=== PATIENT | female | born 1980 | race Caucasian/White ===

== ENCOUNTER 2017-06-02 11:56 | Day surgery (SDC) | payer BC, OTHER ==
[2017-06-02] MEDS ORDERED: Lactated Ringers 1,000 ML IV ONE ×2 (12:13→12:15)
[2017-06-02 12:21] LABS: Mean Corpuscular Hemoglobin 30.3 pg (26-32); Mean Platelet Volume 10.8 fl (6-9.5); Platelet Count 259 K/mm3 (150-450); Red Blood Count 4.45 M/mm3 (4.1-5.4); Red Cell Distribution Width 13.1 % (11.5-14.0)
[2017-06-02] MEDS ORDERED: ROCEPHIN 1 Gm-D5w 50 ml Bag** 1 G/50 ML IVPB IV ONE (13:00)
[2017-06-02 13:19] VITALS: O2SAT 98
[2017-06-02 13:41] VITALS: BP 120/67; PULSE 88
== END 2017-06-02 13:46 | disposition home or self-care (01) ==
LOC: INFUSION 11:56
PROVIDERS: ATTEND Nurse Practitioner
DX: E86.0 Dehydration (principal)
CPT/HCPCS: 36415; 85027; 96360; 96365; J0696

== ENCOUNTER 2017-07-31 01:23 | Inpatient (IN) | payer OTHER ==
[2017-07-31] MEDS ORDERED: Phenergan 25 MG INJ IV ONE ×2 (01:48→03:18)
[2017-07-31] MEDS ORDERED: SUBLIMAZE 100 MCG/2 ML IV ONE (01:48)
[2017-07-31] MEDS ORDERED: Sodium Chloride 0.9% 1000 ML 1,000 ML IV STA ×2 (01:48→03:48)
[2017-07-31] MEDS ORDERED: Phenergan 25 MG INJ ONE ×2 (01:52→03:27)
[2017-07-31] MEDS ORDERED: SUBLIMAZE 100 MCG/2 ML ONE (01:52)
[2017-07-31] MEDS ORDERED: Sodium Chloride 0.9% 1000 ML 1,000 ML ONE ×2 (01:53→03:27)
--- NOTE | 2017-07-31 01:55 | ERPHSYRPT ---
- History of Present Illness Time Seen by Provider: 07/31/17 01:42 Historian: patient Exam Limitations: no limitations Patient Subjective Stated Complaint: Pt reports abd pain and vomiting since yesterday, also with diarrhea. Reports vomited more than 12 times. Reports same amount of diarrhea. Reports cramping abd pain /. Also reports bright red rectal bleeding intermittent x 3 months. Reports occurs at random. Triage Nursing Assessment: Pt alert, oriented, answers all questions appropriately. Skin pink, warm, dry. Resps non-labored. Pt ambulatory to tx room, steady gait noted. Physician History: FOR THE PAST 13 HOURS PT HAS HAD DIARRHEA X13, VOMITING X13 WITHOUT BLOOD, RLQ ABDOMINAL PAIN; FOR THE PAST 3 MONTHS LEUKOCYTOSIS, FEVER UP TO 101 DEGREES, CHILLS AND DIAPHORESIS. Allergies/Adverse Reactions: midazolam HCl [From Versed] Allergy (Severe, Verified 07/31/17 02:24) Swelling of Tongue and Lips clindamycin Allergy (Intermediate, Verified 07/31/17 02:24) Stomach swelling sulfamethoxazole [From Bactrim] Allergy (Mild, Verified 07/31/17 02:24) Rash trimethoprim [From Bactrim] Allergy (Mild, Verified 07/31/17 02:24) Rash morphine Adverse Reaction (Mild, Verified 07/31/17 02:24) "makes me mean" pt states it makes her mean Home Medications: Gabapentin 400 mg [Neurontin 400 MG] 300 mg PO QID 05/20/14 [History] Cyanocobalamin 1000 Mcg/ml [Cyanocobalamin B-12 1000 MCG/ML] 1,000 mcg IJ UD 12/20/14 [History] Methylphenidate HCl [Ritalin] 20 mg PO UD 12/20/14 [History] Fluoxetine HCl 20 mg [Prozac 20 MG] 20 mg PO DAILY 06/02/17 [History] Methocarbamol 500 mg [Robaxin 500 MG] 500 mg PO QID 06/02/17 [History] Hx Tetanus, Diphtheria Vaccination/Date Given: Yes (2011) Hx Influenza Vaccination/Date Given: Yes Hx Pneumococcal Vaccination/Date Given: No Immunizations Up to Date: Yes - Review of Systems Constitutional: Fever, Chills, Other (ELEVATED WBC COUNT FOR THE PAST 3 MONTHS.) Respiratory: No Dyspnea Cardiac: No Chest Pain Abdominal/Gastrointestinal: Abdominal Pain, Vomiting, Diarrhea Endocrine: Excessive Sweating All Other Systems: Reviewed and Negative - Past Medical History Pertinent Past Medical History: Yes Neurological History: No Pertinent History ENT History: No Pertinent History Cardiac History: No Pertinent History Respiratory History: No Pertinent History Endocrine Medical History: No Pertinent History Musculoskeletal History: Other GI Medical History: Gallbladder Disease, Other History: Other Psycho-Social History: Anxiety Female Reproductive Disorders: Fibroids Other Medical History: 3 HIP SURGERIES D/T HIP IMPINGEMENT; R KNEE SCOPE, CUBITAL TUNNEL RELEASE, hx of elevated white blood cell count x 3 months. - Past Surgical History Past Surgical History: Yes Neuro Surgical History: No Pertinent History Cardiac: No Pertinent History Respiratory: No Pertinent History Gastrointestinal: Cholecystectomy Genitourinary: No Pertinent History Musculoskeletal: Orthopedic Surgery Female Surgical History: Section, Hysterectomy, Other Other Surgical History: hysterectomy, right carpletunnel breast reduction, right hip surg. right knee scope . - Social History Smoking Status: Current every day smoker How long have you smoked: 20 Exposure to second hand smoke: No Drug Use: none Patient Lives Alone: No - Female History Hx Last Menstrual Period: hyst - Nursing Vital Signs Nursing Vital Signs: Initial Vital Signs Temperature 98.2 F 07/31/17 01:30 Pulse Rate 82 07/31/17 01:30 Respiratory Rate 16 07/31/17 01:30 Blood Pressure 129/82 07/31/17 01:30 O2 Sat by Pulse Oximetry 96 07/31/17 01:30 Pain Scale Pain Intensity 10 - Physical Exam General Appearance: alert Eye Exam: PERRL/EOMI Ears, Nose, Throat Exam: TMs normal, dry mucous membranes Neck Exam: normal inspection Respiratory Exam: lungs clear Cardiovascular Exam: normal heart sounds Gastrointestinal/Abdomen Exam: soft, normal bowel sounds, tenderness (MILD RLQ ABDOMINAL TENDERNESS) Back Exam: normal range of motion Extremity Exam: normal inspection, No pedal edema Neurologic Exam: alert, cooperative Skin Exam: warm, dry SpO2 Interpretation: normal SpO2: 96 Oxygen Delivery: Room Air - Course Nursing assessment & vital signs reviewed: Yes - CT Exams Abdomen/Pelvis CT Interpretation: Tele-radiologist Report (THERE IS MILD DIFFUSE WALL THICKENING OF THE COLON. CLINICAL CORRELATION FOR COLITIS IS RECOMMENDED. NO OBSTRUCTION, PERFORATION OF ABSCESS.) Ordered Tests: Active Orders 24 hr Category Date Time Status Clean Catch Urine Specimen STAT Care 07/31/17 01:48 Active IV Insertion STAT Care 07/31/17 02:28 Active ABDOMEN AND PELVIS W/0 CONTRAS [CT] Stat Exams 07/31/17 01:49 Taken AMYLASE Stat Lab 07/31/17 02:05 Completed BLOOD CULTURE Stat Lab 07/31/17 02:00 Ordered CBC W DIFF Stat Lab 07/31/17 02:05 Completed CMP Stat Lab 07/31/17 02:05 Completed HCG QUALITATIVE,SERUM Stat Lab 07/31/17 02:05 Completed LIPASE Stat Lab 07/31/17 02:05 Completed MAG [MAGNESIUM] Stat Lab 07/31/17 02:05 Completed Manual Differential NC Stat Lab 07/31/17 02:05 Completed UA W/RFX UR CULTURE Stat Lab 07/31/17 01:49 Ordered Medication Summary Generic Name Dose Route Start Last Admin Trade Name Freq PRN Reason Stop Dose Admin Metronidazole 500 mg in 100 mls @ 200 mls/hr 07/31/17 03:08 Flagyl 500 Mg Ivpb IV 07/31/17 03:37 STAT STA Levofloxacin/Dextrose 500 mg in 100 mls @ 100 mls/hr 07/31/17 03:08 Levofloxacin 500mg/100ml D5w IV 07/31/17 04:07 STAT STA Discontinued Medications Generic Name Dose Route Start Last Admin Trade Name Freq PRN Reason Stop Dose Admin Fentanyl Citrate 50 mcg 07/31/17 01:48 07/31/17 02:09 Sublimaze 100 Mcg/2 Ml IV 07/31/17 01:49 50 mcg STAT ONE Administration Fentanyl Citrate Confirm 07/31/17 01:52 Sublimaze 100 Mcg/2 Ml Administered 07/31/17 01:53 Dose 100 mcg .ROUTE .STK-MED ONE Sodium Chloride 1,000 mls @ 999 mls/hr 07/31/17 01:48 07/31/17 02:08 Sodium Chloride 0.9% 1000 Ml IV 07/31/17 02:48 999 mls/hr .Q1H1M STA Administration Sodium Chloride Confirm 07/31/17 01:53 Sodium Chloride 0.9% 1000 Ml Administered 07/31/17 01:54 Dose 1,000 mls @ ud .ROUTE .STK-MED ONE Magnesium Sulfate/Dextrose 100 mls @ 200 mls/hr 07/31/17 02:42 07/31/17 02:46 Magnesium 1 Gm / 100 Ml D5w IV 07/31/17 03:11 200 mls/hr STAT ONE Administration Magnesium Sulfate/Dextrose Confirm 07/31/17 02:45 Magnesium 1 Gm / 100 Ml D5w Administered 07/31/17 02:46 Dose 100 mls @ ud IV .STK-MED ONE Promethazine HCl 12.5 mg 07/31/17 01:48 07/31/17 02:08 Phenergan 25 Mg Inj IV 07/31/17 01:49 12.5 mg STAT ONE Administration Promethazine HCl Confirm 07/31/17 01:52 Phenergan 25 Mg Inj Administered 07/31/17 01:53 Dose 25 mg .ROUTE .STK-MED ONE Lab/Rad Data: Laboratory Result Diagrams 07/31/17 02:05 07/31/17 02:05 Laboratory Results 07/31/17 07/31/17 07/31/17 Range/Units 02:05 02:05 02:05 WBC (4.0-10.5) K/mm3 RBC (4.1-5.4) M/mm3 Hgb (12.0-16.0) gm/dl Hct (35-47) % MCV (78-100) fl MCH (26-32) pg MCHC (32-36) g/dl RDW (11.5-14.0) % Plt Count (150-450) K/mm3 MPV (6-9.5) fl Sodium 137 (136-145) mEq/L Potassium 3.8 (3.5-5.1) mEq/L Chloride 104 (98-107) mEq/L Carbon Dioxide 23.9 (21-32) mEq/L Anion Gap 13.3 (5-15) MEQ/L BUN 17 (9-20) mg/dL Creatinine 0.92 (0.55-1.30) mg/dl Estimated GFR > 60 ML/MIN Glucose 180 H (70-110) MG/DL Calcium 8.6 (8.5-10.1) mg/dL Magnesium 1.7 L (1.8-2.4) mg/dL Total Bilirubin 0.60 (0.2-1.0) mg/dL AST 10 L (15-37) U/L ALT 21 (12-78) U/L Alkaline Phosphatase 68 (46-116) U/L Serum Total Protein 7.4 (6.4-8.2) gm/dL Albumin 3.9 (3.4-5.0) g/dL Amylase 28 (25-115) U/L Lipase 64 L (73-393) U/L Serum , Qual NEGATIVE (Negative) 07/31/17 Range/Units 02:05 WBC 22.1 H (4.0-10.5) K/mm3 RBC 4.89 (4.1-5.4) M/mm3 Hgb 14.6 (12.0-16.0) gm/dl Hct 44.3 (35-47) % MCV 90.6 (78-100) fl MCH 29.9 (26-32) pg MCHC 33.0 (32-36) g/dl RDW 13.4 (11.5-14.0) % Plt Count 240 (150-450) K/mm3 MPV 10.3 H (6-9.5) fl Sodium (136-145) mEq/L Potassium (3.5-5.1) mEq/L Chloride (98-107) mEq/L Carbon Dioxide (21-32) mEq/L Anion Gap (5-15) MEQ/L BUN (9-20) mg/dL Creatinine (0.55-1.30) mg/dl Estimated GFR ML/MIN Glucose (70-110) MG/DL Calcium (8.5-10.1) mg/dL Magnesium (1.8-2.4) mg/dL Total Bilirubin (0.2-1.0) mg/dL AST (15-37) U/L ALT (12-78) U/L Alkaline Phosphatase (46-116) U/L Serum Total Protein (6.4-8.2) gm/dL Albumin (3.4-5.0) g/dL Amylase (25-115) U/L Lipase (73-393) U/L Serum , Qual (Negative) - Progress Discussed with : Isauro (OBS - [id number]) - Departure Time of Disposition: 03:17 Departure Disposition: Observation Clinical Impression: COLITIS, HYPOMAGNESEMIA, ANXIETY Condition: Stable Critical Care Time: No Referrals: ERIK SAWYER [Primary Care Provider] -
[2017-07-31 02:13] LABS: Mean Cell Volume 90.6 fl (78-100); Mean Corpuscular Hemoglobin 29.9 pg (26-32); Mean Platelet Volume 10.3 fl (6-9.5); Platelet Count 240 K/mm3 (150-450); Red Blood Count 4.89 M/mm3 (4.1-5.4); Red Cell Distribution Width 13.4 % (11.5-14.0); White Blood Count 22.1 K/mm3 (4.0-10.5)
[2017-07-31] MEDS ORDERED: Magnesium 1 Gm / 100 Ml D5W*** 100 ML IV ONE ×2 (02:42→02:45)
[2017-07-31 02:51] LABS: ALBUMIN 3.9 g/dL (3.4-5.0); ALKALINE PHOSPHATASE 68 U/L (46-116); ANION GAP 13.3 MEQ/L (5-15); BLOOD UREA NITROGEN 17 mg/dL (9-20); CHLORIDE 104 mEq/L (98-107); Carbon Dioxide 23.9 mEq/L (21-32); Glucose 180 MG/DL (70-110); LIPASE 64 U/L (73-393); Potassium 3.8 mEq/L (3.5-5.1); SGOT/AST 10 U/L (15-37); SGPT/ALT 21 U/L (12-78); SODIUM 137 mEq/L (136-145); Total Protein 7.4 gm/dL (6.4-8.2)
[2017-07-31] MEDS ORDERED: Levofloxacin 500MG/100ML D5W 500 MG/100 ML BAG IV STA (03:08)
[2017-07-31] MEDS ORDERED: FLAGYL 500 MG IVPB 500 MG/100 ML BAG IV STA (03:08)
[2017-07-31] MEDS ORDERED: Hydromorphone 1 mg/ml Ampule IV ONE (03:18)
[2017-07-31] MEDS ORDERED: Hydromorphone 1 mg/ml Ampule ONE (03:27)
[2017-07-31] MEDS ORDERED: FLAGYL 500 MG IVPB 500 MG/100 ML BAG IV ONE (03:27)
[2017-07-31] MEDS ORDERED: DILAUDID 2 MG INJECTION IV PRN (04:21)
[2017-07-31 04:28] LABS: BAND 5 % (0.0-2.0); Basophil 1 % (0.0-1.0); Total Cells Counted 100
[2017-07-31 04:32] LABS: ANISOCYTOSIS 1+; Platelet Estimate NORMAL (NORMAL)
[2017-07-31] MEDS: Sodium Chloride 0.9% 1000 ML 1,000 ML IV SCH ×2 (04:51→13:24)
[2017-07-31] MEDS: Zofran 4 MG/2 ML VIAL IV PRN ×2 (05:17→21:45)
[2017-07-31] MEDS ORDERED: Narcan 0.4 MG/ML IV PRN (08:01)
[2017-07-31] MEDS ORDERED: Cyanocobalamin B-12 1000 MCG/ML IM SCH (08:45)
--- NOTE | 2017-07-31 08:56 | XRAY ---
Indication: Right lower quadrant pain and vomiting. Bright red rectal bleeding. Fever, chills, and elevated WBC. Multiple contiguous axial images obtained through the abdomen and pelvis without contrast as ordered. Comparison: April 07, 2016. Lung bases demonstrate minimal bibasilar dependent atelectasis. No suspicious pulmonary mass, infiltrate, or effusion. Heart is not enlarged. Stomach is now moderately fluid distended. Noncontrasted stomach and bowel loops again appear nonobstructed. Ascending colon now demonstrates mild wall thickening with minimal cecal stranding possibly colitis. Again normal appendix, cholecystectomy, and hysterectomy. No free fluid/air. Remaining liver, pancreas, spleen, adrenal glands, kidneys, ureters, bladder, and aorta again appear unremarkable for noncontrast exam. Osseous structures intact. Impression: 1. Mild wall thickening of the ascending colon with minimal stranding. Rule out colitis. 2. Remaining CT abdomen/pelvis without contrast exam is negative. Comment: Preliminary interpretation was made by [facility]. No discrepancy. CTDI 17.62
--- NOTE | 2017-07-31 09:07 | HP ---
CHIEF COMPLAINT: Abdominal pain. HISTORY OF PRESENT ILLNESS: The patient is a 37 year-old white female with a history of colitis. The patient reports that over the past couple of days she has been having problems with increasing abdominal pain, nausea and vomiting at the same time. The patient reports that over the past few months she has been having rectal bleeding. She had seen Dr. Patel as a GI physician who wants to do a scope procedure on her to confirm her underlying disease process. The patient has not complied with this at this point so she has not been able to be on any kind of treatment for the underlying colitis. PAST MEDICAL/SURGICAL HISTORY: Otherwise significant for having foot surgeries x3. She had knee scope, cubital release. The patient does have a history of leukocytosis which is currently under evaluation as well. She had hysterectomy, section, breast reduction. HOME MEDICATIONS: Currently include gabapentin 400 mg t.i.d. She has B12 injections. She is taking Ritalin 20 mg up to three times a day for attention deficit disorder. Fluoxetine 20 mg daily and Robaxin 500 mg four times a day. ALLERGIES: SHE REPORTS REACTIONS TO VERSED, CLINDAMYCIN, BACTRIM. MORPHINE SHE REPORTS MAKES HER MEAN. PHYSICAL EXAMINATION: Revealed a well nourished, well developed somewhat overweight white female currently in moderate distress due to her abdominal pain. Her vital signs on admission showed her temperature 98.2F, pulse 82, respiratory rate 16, blood pressure 129/82. O2 saturation 96%. HEENT: Normocephalic, atraumatic. Pupils equal round reactive to light. Extraocular movements intact. Oropharynx is dry. NECK: Supple without lymphadenopathy, thyromegaly or JVD. CHEST: Clear to auscultation with good air movement bilaterally. HEART: Regular rate and rhythm without murmurs, rubs or gallops. ABDOMEN: Tender throughout. No palpable masses are felt. EXTREMITIES: Without clubbing, cyanosis or edema. NEUROLOGIC: The patient is alert and oriented x3. No focal deficits are noted. LAB DATA AND TESTS: CT scan of the abdomen and pelvis revealed thickening of bowel wall concerning for the possibility of underlying colitis otherwise there is no other pathology noted. HCG was negative. White blood cell count noted to be 22,100 with hemoglobin 14.6, PLT count 240,000. She has 5 bands and 90 polys. Magnesium 1.7. Metabolic panel showed nonfasting sugar at 180. Electrolytes were normal. Liver enzymes normal. Amylase and lipase were not elevated. ASSESSMENT: A patient with exacerbation of underlying colitis. She has been admitted for IV antibiotics and IV steroids and pain control. 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 She is on Levaquin and Flagyl. She does have a previous history of Clostridium difficile infections. We at this point hope to get her colitis calmed down to get her back to the GI doctor for confirmation of underlying illness.
[2017-07-31] MEDS: solu-MEDROL 125 MG IV SCH ×4 (09:52→23:49)
[2017-07-31] MEDS: Phenergan 25 MG INJ IV PRN (09:52)
[2017-07-31 10:09] LABS: Mean Cell Volume 92.4 fl (78-100); Mean Platelet Volume 10.6 fl (6-9.5); Platelet Count 204 K/mm3 (150-450); Red Blood Count 3.95 M/mm3 (4.1-5.4); Red Cell Distribution Width 13.3 % (11.5-14.0); White Blood Count 13.9 K/mm3 (4.0-10.5)
[2017-07-31 10:11] LABS: Mean Corpuscular Hemoglobin 29.3 pg (26-32)
[2017-07-31 10:31] LABS: ALBUMIN 2.8 g/dL (3.4-5.0); ALKALINE PHOSPHATASE 52 U/L (46-116); ANION GAP 11.6 MEQ/L (5-15); BLOOD UREA NITROGEN 14 mg/dL (9-20); CHLORIDE 108 mEq/L (98-107); Carbon Dioxide 23.1 mEq/L (21-32); Glucose 109 MG/DL (70-110); Potassium 3.7 mEq/L (3.5-5.1); SGOT/AST 12 U/L (15-37); SGPT/ALT 15 U/L (12-78); SODIUM 139 mEq/L (136-145); Total Protein 5.8 gm/dL (6.4-8.2)
[2017-07-31 10:42] LABS: BAND 3 % (0.0-2.0); Platelet Estimate NORMAL (NORMAL); Total Cells Counted 100
[2017-07-31] MEDS: DILAUDID 1 MG/1ML PCA IV PRN ×2 (11:03→18:23)
[2017-07-31] MEDS: NEURONTIN 300 MG PO SCH ×3 (11:10→21:45)
[2017-07-31] MEDS: Prozac 20 MG PO SCH (11:10)
[2017-07-31] MEDS: PROTONIX 40 MG IV IV SCH (11:10)
[2017-07-31] MEDS: Levofloxacin 500MG/100ML D5W 500 MG/100 ML BAG IV SCH (11:11)
[2017-07-31] MEDS: Robaxin 500 MG PO SCH ×4 (12:30→21:46)
[2017-07-31] MEDS: FLAGYL 500 MG IVPB 500 MG/100 ML BAG IV SCH ×2 (13:24→21:46)
[2017-07-31 17:39] LABS: ADD URINE CULTURE? NO (NO); Bilirubin NEGATIVE (NEGATIVE); Blood NEGATIVE Ery/ul (0-5); COMPLETE URINE MICROSCOPIC? NO; Collection Type CLEAN CATCH; Glucose 100 mg/dL (NEGATIVE); Leukocyte Esterase NEGATIVE (NEGATIVE)
[2017-07-31] MEDS: Nicoderm CQ 21 MG TOP SCH (21:45)
[2017-08-01] MEDS: Sodium Chloride 0.9% 1000 ML 1,000 ML IV SCH ×2 (00:30→06:48)
[2017-08-01] MEDS: FLAGYL 500 MG IVPB 500 MG/100 ML BAG IV SCH ×3 (06:27→19:00)
[2017-08-01] MEDS: solu-MEDROL 125 MG IV SCH (06:28)
[2017-08-01] MEDS: Zofran 4 MG/2 ML VIAL IV PRN ×3 (06:37→22:24)
[2017-08-01] MEDS ORDERED: solu-MEDROL 125 MG IV SCH (10:01)
--- NOTE | 2017-08-01 10:04 | PCM.HP ---
History of Present Illness - Chief Complaint Chief Complaint: Colitis, hypomagnesemia Date: 08/01/17 History of Present Illness: is a 37 year old female. still profuse watery diarrhea frequent she is swollen and bloated and uncomfortable and right sided abdominal pain into the back nauseated but no vomiting. Medications & Allergies Home Medications: Home Medication List Cyanocobalamin 1000 Mcg/ml [Cyanocobalamin B-12 1000 MCG/ML] 1,000 mcg IM UD 12/20/14 [History Confirmed 07/31/17] Methylphenidate HCl [Ritalin] 20 mg PO TID 12/20/14 [History Confirmed 07/31/17] Fluoxetine HCl 20 mg [Prozac 20 MG] 20 mg PO DAILY 06/02/17 [History Confirmed 07/31/17] Methocarbamol 500 mg [Robaxin 500 MG] 500 mg PO QID 06/02/17 [History Confirmed 07/31/17] Gabapentin 300 mg PO TID 07/31/17 [History Confirmed 07/31/17] Allergies/Adverse Reactions: Allergies Allergy/AdvReac Type Severity Reaction Status Date / Time midazolam HCl [From Versed] Allergy Severe Swelling Verified 07/31/17 02:24 of Tongue and Lips clindamycin Allergy Intermediate Stomach Verified 07/31/17 02:24 swelling sulfamethoxazole Allergy Mild Rash Verified 07/31/17 02:24 [From Bactrim] trimethoprim [From Bactrim] Allergy Mild Rash Verified 07/31/17 02:24 morphine AdvReac Mild "makes me Verified 07/31/17 02:24 mean" - Past Medical History Past Medical History: Yes Neurological History: No Pertinent History ENT History: No Pertinent History Cardiac History: No Pertinent History Respiratory History: No Pertinent History Endocrine Medical History: No Pertinent History Musculoskelatal History: Other GI Medical History: Gallbladder Disease, Other History: Other Pyscho-Social History: Anxiety Reproductive Disorders: Fibroids Comment: 3 HIP SURGERIES D/T HIP IMPINGEMENT; R KNEE SCOPE, CUBITAL TUNNEL RELEASE, hx of elevated white blood cell count x 3 months. - Female History Hx Last Menstrual Period: hyst Are you now?: No - Past Surgical History Past Surgical History: Yes Neuro Surgical History: No Pertinent History Cardiac History: No Pertinent History Respiratory Surgery: No Pertinent History GI Surgical History: Cholecystectomy Genitourinary Surgical Hx: No Pertinent History Musculskeletal Surgical Hx: Orthopedic Surgery Female Surgical History: Section, Hysterectomy, Other Other Surgical History: hysterectomy, right carpletunnel breast reduction, right hip surg. right knee scope . - Social History Smoking Status: Never smoker How long have you smoked: 20 Exposure to second hand smoke: No Alcohol: None Drug Use: none - Physical Exam Vital Signs: Vital Signs - 24 hr Temp Pulse Resp BP Pulse Ox 08/01/17 07:42 98.5 F 87 20 100/58 93 L 08/01/17 07:27 95 08/01/17 04:00 98.5 F 91 H 14 100/61 95 08/01/17 00:00 98.3 F 86 18 97/62 96 07/31/17 20:00 98.8 F 92 H 15 113/67 96 07/31/17 18:23 95 07/31/17 16:00 98.4 F 88 18 118/66 94 L 07/31/17 11:34 101.2 F 107 H 20 120/77 97 General Appearance: no apparent distress, alert, other (edematous) Neurologic Exam: alert, oriented x 3, cooperative, normal mood/affect, nml cerebellar function, nml station & gait, sensation nml, No motor deficits Eye Exam: PERRL/EOMI, eyes nml inspection Ears, Nose, Throat Exam: normal ENT inspection, pharynx normal, moist mucous membranes Neck Exam: normal inspection, non-tender, supple, full range of motion Respiratory Exam: normal breath sounds, lungs clear, No respiratory distress Cardiovascular Exam: regular rate/rhythm, normal heart sounds, normal peripheral pulses Gastrointestinal/Abdomen Exam: soft, normal bowel sounds, tenderness (right upper and lower quadrants), No distention, No mass, No guarding, No rebound Back Exam: normal inspection, normal range of motion, No CVA tenderness, No vertebral tenderness Extremity Exam: normal inspection, normal range of motion, pelvis stable Skin Exam: normal color, warm, dry, No rash Lymphatic Exam: No adenopathy Results - Labs Lab/Micro Results: Lab Results-Last 24 Hours 07/31/17 07/31/17 07/31/17 Range/Units 10:00 10:00 10:00 WBC 13.9 H (4.0-10.5) K/mm3 RBC 3.95 L (4.1-5.4) M/mm3 Hgb 11.6 L (12.0-16.0) gm/dl Hct 36.5 (35-47) % MCV 92.4 (78-100) fl MCH 29.3 (26-32) pg MCHC 31.8 L (32-36) g/dl RDW 13.3 (11.5-14.0) % Plt Count 204 (150-450) K/mm3 MPV 10.6 H (6-9.5) fl Segmented Neutrophils 87 H (36.0-66.0) % Band Neutrophils 3 H (0.0-2.0) % Lymphocytes (Manual) 7 L (24-44) % Monocytes (Manual) 3 (0.0-12.0) % Differential Comment NORMAL Platelet Estimate NORMAL (NORMAL) Sodium 139 (136-145) mEq/L Potassium 3.7 (3.5-5.1) mEq/L Chloride 108 H (98-107) mEq/L Carbon Dioxide 23.1 (21-32) mEq/L Anion Gap 11.6 (5-15) MEQ/L BUN 14 (9-20) mg/dL Creatinine 0.87 (0.55-1.30) mg/dl Estimated GFR > 60 ML/MIN Glucose 109 (70-110) MG/DL Calcium 7.3 L (8.5-10.1) mg/dL Magnesium 2.0 (1.8-2.4) mg/dL Total Bilirubin 0.30 (0.2-1.0) mg/dL AST 12 L (15-37) U/L ALT 15 (12-78) U/L Alkaline Phosphatase 52 (46-116) U/L Serum Total Protein 5.8 L (6.4-8.2) gm/dL Albumin 2.8 L (3.4-5.0) g/dL Ur Collection Type Urine Color (YELLOW) Urine Appearance (CLEAR) Urine pH (5-6) Ur Specific [place] (1.005-1.025) Urine Protein (Negative) Urine Ketones (NEGATIVE) Urine Blood (0-5) Chao/ul Urine Nitrite (NEGATIVE) Urine Bilirubin (NEGATIVE) Urine Urobilinogen (0-1) mg/dL Ur Leukocyte Esterase (NEGATIVE) Urine Culture Reflexed (NO) Urine Glucose (NEGATIVE) mg/dL Influenza Type A Ag (NEGATIVE) Influenza Type B Ag (NEGATIVE) RSV (PCR) (Negative) Specimen Received 07/31/17 07/31/17 Range/Units 10:00 16:45 WBC (4.0-10.5) K/mm3 RBC (4.1-5.4) M/mm3 Hgb (12.0-16.0) gm/dl Hct (35-47) % MCV (78-100) fl MCH (26-32) pg MCHC (32-36) g/dl RDW (11.5-14.0) % Plt Count (150-450) K/mm3 MPV (6-9.5) fl Segmented Neutrophils (36.0-66.0) % Band Neutrophils (0.0-2.0) % Lymphocytes (Manual) (24-44) % Monocytes (Manual) (0.0-12.0) % Differential Comment Platelet Estimate (NORMAL) Sodium (136-145) mEq/L Potassium (3.5-5.1) mEq/L Chloride (98-107) mEq/L Carbon Dioxide (21-32) mEq/L Anion Gap (5-15) MEQ/L BUN (9-20) mg/dL Creatinine (0.55-1.30) mg/dl Estimated GFR ML/MIN Glucose (70-110) MG/DL Calcium (8.5-10.1) mg/dL Magnesium (1.8-2.4) mg/dL Total Bilirubin (0.2-1.0) mg/dL AST (15-37) U/L ALT (12-78) U/L Alkaline Phosphatase (46-116) U/L Serum Total Protein (6.4-8.2) gm/dL Albumin (3.4-5.0) g/dL Ur Collection Type CLEAN CATCH Urine Color YELLOW (YELLOW) Urine Appearance CLEAR (CLEAR) Urine pH 6.0 (5-6) Ur Specific [place] 1.010 (1.005-1.025) Urine Protein NEGATIVE (Negative) Urine Ketones NEGATIVE (NEGATIVE) Urine Blood NEGATIVE (0-5) Chao/ul Urine Nitrite NEGATIVE (NEGATIVE) Urine Bilirubin NEGATIVE (NEGATIVE) Urine Urobilinogen NORMAL (0-1) mg/dL Ur Leukocyte Esterase NEGATIVE (NEGATIVE) Urine Culture Reflexed NO (NO) Urine Glucose 100 (NEGATIVE) mg/dL Influenza Type A Ag NEGATIVE (NEGATIVE) Influenza Type B Ag NEGATIVE (NEGATIVE) RSV (PCR) NEGATIVE (Negative) Specimen Received 07/31/17 1700 Assessment/Plan (1) Sepsis Current Visit: Yes Status: Acute Assessment & Plan: improving on the levaquin and flagyl from the colitis she has large weight gain and edematous tolerating po liquids will d/c if fluids monitor I/O check stool for c. diff and culture advance diet decrease steroids from 80 iv q6h to 40 iv q8h and monitor check labs now and in am (2) Colitis Current Visit: Yes Status: Acute Code(s): K52.9 - NONINFECTIVE GASTROENTERITIS AND COLITIS, UNSPECIFIED (3) Hypomagnesemia Current Visit: Yes Status: Acute Code(s): E83.42 - HYPOMAGNESEMIA
[2017-08-01 10:33] LABS: BASOPHIL % 0.1 % (0.0-0.4); Granulocytes % 92.9 % (36.0-66.0); Lymphocytes % 4.9 % (24.0-44.0); Mean Cell Volume 93.6 fl (78-100); Mean Corpuscular Hemoglobin 29.5 pg (26-32); Mean Platelet Volume 10.4 fl (6-9.5); Monocytes % 2.1 % (0.0-12.0); Platelet Count 219 K/mm3 (150-450); Red Blood Count 3.76 M/mm3 (4.1-5.4); Red Cell Distribution Width 13.3 % (11.5-14.0)
[2017-08-01] MEDS: Robaxin 500 MG PO SCH ×4 (10:34→19:56)
[2017-08-01] MEDS: Prozac 20 MG PO SCH (10:34)
[2017-08-01] MEDS: Levofloxacin 500MG/100ML D5W 500 MG/100 ML BAG IV SCH (10:34)
[2017-08-01] MEDS: PROTONIX 40 MG IV IV SCH (10:34)
[2017-08-01] MEDS: NEURONTIN 300 MG PO SCH ×3 (10:40→19:54)
[2017-08-01 11:01] LABS: ALBUMIN 3.1 g/dL (3.4-5.0); ALKALINE PHOSPHATASE 53 U/L (46-116); ANION GAP 10.4 MEQ/L (5-15); BLOOD UREA NITROGEN 8 mg/dL (9-20); CHLORIDE 108 mEq/L (98-107); Carbon Dioxide 25.2 mEq/L (21-32); Glucose 134 MG/DL (70-110); SGOT/AST 11 U/L (15-37); SGPT/ALT 17 U/L (12-78); SODIUM 140 mEq/L (136-145); Total Protein 6.2 gm/dL (6.4-8.2)
[2017-08-01] MEDS ORDERED: VANCOMYCIN 25MG/ML COMPOUND KIT PO SCH (13:00)
[2017-08-01] MEDS ORDERED: NON-FORMULARY ITEM PO SCH (13:00)
[2017-08-01] MEDS: NON-FORMULARY ITEM PO SCH ×3 (13:54→19:56)
[2017-08-01] MEDS: solu-MEDROL 40 MG IV SCH ×2 (15:28→19:54)
[2017-08-01] MEDS: Nicoderm CQ 21 MG TOP SCH (17:50)
[2017-08-01] MEDS: Phenergan 25 MG INJ IV PRN (19:55)
[2017-08-02] MEDS: Phenergan 25 MG INJ IV PRN ×2 (01:03→07:20)
[2017-08-02] MEDS: Zofran 4 MG/2 ML VIAL IV PRN (04:00)
[2017-08-02 05:34] LABS: Mean Cell Volume 94.2 fl (78-100); Mean Corpuscular Hemoglobin 29.8 pg (26-32); Mean Platelet Volume 10.9 fl (6-9.5); Platelet Count 213 K/mm3 (150-450); Red Blood Count 3.59 M/mm3 (4.1-5.4); Red Cell Distribution Width 13.4 % (11.5-14.0); White Blood Count 21.6 K/mm3 (4.0-10.5)
[2017-08-02] MEDS: FLAGYL 500 MG IVPB 500 MG/100 ML BAG IV SCH ×3 (05:42→21:33)
[2017-08-02] MEDS: solu-MEDROL 40 MG IV SCH (05:42)
[2017-08-02 06:07] LABS: ANION GAP 6.9 MEQ/L (5-15); BLOOD UREA NITROGEN 17 mg/dL (9-20); CHLORIDE 108 mEq/L (98-107); Carbon Dioxide 28.8 mEq/L (21-32); Glucose 137 MG/DL (70-110); SODIUM 140 mEq/L (136-145)
[2017-08-02 07:16] LABS: ANISOCYTOSIS 1+; BAND 7 % (0.0-2.0); Platelet Estimate NORMAL (NORMAL); Polychromasia 1+; Total Cells Counted 100; Toxic Granulation RARE
--- NOTE | 2017-08-02 08:06 | PCM.NOTE ---
Date and Time: 08/02/17805 Subjective Assessment: the diarrhea and bloody stools have stopped she is not vomiting but the pain is worse in [place]ika right upper and lower and now in the left upper quadrant she can't get comfortable laying multiple different ways she has tried heat back to abdomen with some help. She did not sleep due to the pain she also is having vaginal itching typical of her yeast infections. Objective Exam General Appearance: no apparent distress, alert Neurologic Exam: alert, oriented x 3, cooperative, normal mood/affect, nml cerebellar function, sensation nml, No motor deficits Skin Exam: normal color, warm, dry Eye Exam: PERRL, EOMI, eyes nml inspection Ears, Nose, Throat Exam: normal ENT inspection, pharynx normal, moist mucous membranes Neck Exam: normal inspection, non-tender, supple, full range of motion Respiratory Exam: normal breath sounds, lungs clear, No respiratory distress Cardiovascular Exam: regular rate/rhythm, normal heart sounds Gastrointestinal/Abdomen Exam: tenderness (right and upper left), distention ( mild distension), guarding, No normal bowel sounds (hypoactive), No mass, No rebound Extremity Exam: normal inspection, normal range of motion Back Exam: normal inspection, normal range of motion, No CVA tenderness, No vertebral tenderness Pelvic Exam: deferred Rectal Exam: deferred OBJECTIVE DATA Vital Signs: Vital Signs - 24 hr Temp Pulse Resp BP Pulse Ox 08/02/17 07:32 95 08/02/17 07:08 98 F 76 20 111/62 95 08/02/17 05:00 97 08/02/17 04:00 99.1 F 83 22 119/57 97 08/02/17 00:19 98 08/01/17 23:58 99.0 F 76 22 116/73 98 08/01/17 20:36 98.7 F 78 16 116/67 94 L 08/01/17 16:00 98.7 F 97 H 20 119/73 95 08/01/17 11:29 98.8 F 97 H 20 109/55 97 Pain Assessment - Last Documented Pain Intensity 10 Pain Scale Used 0-10 Pain Scale Intake and Output: Intake & Output 07/30/17 07/31/17 08/01/17 08/02/17 11:59 11:59 11:59 11:59 Intake Total 4728 2205 Output Total 400 500 360 Balance -400 1910 6147 Weight 82.69 kg 85.275 kg Lab Results: Lab Results-Last 24 Hours 08/01/17 08/01/17 08/01/17 Range/Units 10:10 10:20 10:20 WBC 18.0 H (4.0-10.5) K/mm3 RBC 3.76 L (4.1-5.4) M/mm3 Hgb 11.1 L (12.0-16.0) gm/dl Hct 35.2 (35-47) % MCV 93.6 (78-100) fl MCH 29.5 (26-32) pg MCHC 31.5 L (32-36) g/dl RDW 13.3 (11.5-14.0) % Plt Count 219 (150-450) K/mm3 MPV 10.4 H (6-9.5) fl Gran % 92.9 H (36.0-66.0) % Lymphocytes % 4.9 L (24.0-44.0) % Monocytes % 2.1 (0.0-12.0) % Eosinophils % 0.0 (0.00-5.0) % Basophils % 0.1 (0.0-0.4) % Segmented Neutrophils (36.0-66.0) % Band Neutrophils (0.0-2.0) % Lymphocytes (Manual) (24-44) % Monocytes (Manual) (0.0-12.0) % Basophils # 0.01 (0-0.4) Differential Comment Toxic Granulation Platelet Estimate (NORMAL) Polychromasia Anisocytosis Sodium 140 (136-145) mEq/L Potassium 4.0 (3.5-5.1) mEq/L Chloride 108 H (98-107) mEq/L Carbon Dioxide 25.2 (21-32) mEq/L Anion Gap 10.4 (5-15) MEQ/L BUN 8 L (9-20) mg/dL Creatinine 0.77 (0.55-1.30) mg/dl Estimated GFR > 60 ML/MIN Glucose 134 H (70-110) MG/DL Calcium 8.0 L (8.5-10.1) mg/dL Magnesium (1.8-2.4) mg/dL Total Bilirubin 0.10 L (0.2-1.0) mg/dL AST 11 L (15-37) U/L ALT 17 (12-78) U/L Alkaline Phosphatase 53 (46-116) U/L Serum Total Protein 6.2 L (6.4-8.2) gm/dL Albumin 3.1 L (3.4-5.0) g/dL Stl C. diff Tox B Gene POSITIVE (NEGATIVE) C.difficile 027-NAP1-B1 PRESUMPTIVE NEGATIVE (NEGATIVE) 08/01/17 08/02/17 08/02/17 Range/Units 10:20 05:15 05:15 WBC 21.6 H (4.0-10.5) K/mm3 RBC 3.59 L (4.1-5.4) M/mm3 Hgb 10.7 L (12.0-16.0) gm/dl Hct 33.8 L (35-47) % MCV 94.2 (78-100) fl MCH 29.8 (26-32) pg MCHC 31.7 L (32-36) g/dl RDW 13.4 (11.5-14.0) % Plt Count 213 (150-450) K/mm3 MPV 10.9 H (6-9.5) fl Gran % (36.0-66.0) % Lymphocytes % (24.0-44.0) % Monocytes % (0.0-12.0) % Eosinophils % (0.00-5.0) % Basophils % (0.0-0.4) % Segmented Neutrophils 83 H (36.0-66.0) % Band Neutrophils 7 H (0.0-2.0) % Lymphocytes (Manual) 6 L (24-44) % Monocytes (Manual) 4 (0.0-12.0) % Basophils # (0-0.4) Differential Comment ABNORMAL Toxic Granulation RARE Platelet Estimate NORMAL (NORMAL) Polychromasia 1+ Anisocytosis 1+ Sodium 140 (136-145) mEq/L Potassium 4.0 (3.5-5.1) mEq/L Chloride 108 H (98-107) mEq/L Carbon Dioxide 28.8 (21-32) mEq/L Anion Gap 6.9 (5-15) MEQ/L BUN 17 (9-20) mg/dL Creatinine 0.80 (0.55-1.30) mg/dl Estimated GFR > 60 ML/MIN Glucose 137 H (70-110) MG/DL Calcium 8.2 L (8.5-10.1) mg/dL Magnesium 2.1 (1.8-2.4) mg/dL Total Bilirubin (0.2-1.0) mg/dL AST (15-37) U/L ALT (12-78) U/L Alkaline Phosphatase (46-116) U/L Serum Total Protein (6.4-8.2) gm/dL Albumin (3.4-5.0) g/dL Stl C. diff Tox B Gene (NEGATIVE) C.difficile 027-NAP1-B1 (NEGATIVE) Multi-Disciplinary Progress Notes: Multi-Disciplinary Progress Notes 08/01/17 15:08 (created 08/01/17 15:07) Case Management Note by Caitie Hough REVIEWED DISCHARGE PLAN. PLANS TO RETURN HOME TO PRE EPISODIC LEVEL OF [facility]. NO ADDNL NEEDS AT PRESENT. WILL CONTINUE TO FOLLOW AND ASSESS FOR ALL DC NEEDS. Initialized on 08/01/17 15:07 - END OF NOTE Assessment/Plan (1) Sepsis Current Visit: Yes Status: Acute Assessment & Plan: secondary to c. diff was on the medrol and wbc initially trendend down now back up. she has been afebrile no tachycardia she has guarding in the abdomen but no rebound and moves around the room well without much pain. will continue on the iv flagyl and the po vanc stop the solumedrol now continue pain control monitor I/O repeat am labs (2) C. difficile colitis Current Visit: Yes Status: Acute (3) Hypomagnesemia Current Visit: Yes Status: Acute Code(s): E83.42 - HYPOMAGNESEMIA
[2017-08-02] MEDS: BENADRYL 25 MG CAPSULE PO PRN ×2 (08:14→15:30)
[2017-08-02] MEDS: Monistat 7 VG SCH (08:43)
[2017-08-02] MEDS: NON-FORMULARY ITEM PO SCH ×4 (08:44→21:34)
[2017-08-02] MEDS: PROTONIX 40 MG IV IV SCH (08:44)
[2017-08-02] MEDS: NEURONTIN 300 MG PO SCH ×3 (08:44→21:33)
[2017-08-02] MEDS: Prozac 20 MG PO SCH (08:44)
[2017-08-02] MEDS: Robaxin 500 MG PO SCH ×4 (08:44→21:44)
[2017-08-02] MEDS ORDERED: Sodium Chloride 0.9% 1000 ML 1,000 ML ONE (10:52)
[2017-08-02] MEDS: Reglan 10 MG/2 ML IV SCH ×3 (10:53→21:33)
[2017-08-02] MEDS: Nicoderm CQ 21 MG TOP SCH (21:33)
[2017-08-03] MEDS: Phenergan 25 MG INJ IV PRN ×3 (01:22→20:24)
[2017-08-03] MEDS: Zofran 4 MG/2 ML VIAL IV PRN (03:00)
[2017-08-03] MEDS ORDERED: TYLENOL 325 MG PO PRN (05:03)
[2017-08-03] MEDS: FLAGYL 500 MG IVPB 500 MG/100 ML BAG IV SCH ×3 (05:06→22:41)
[2017-08-03 06:34] LABS: Mean Cell Volume 93.6 fl (78-100); Mean Corpuscular Hemoglobin 29.3 pg (26-32); Platelet Count 190 K/mm3 (150-450); Red Blood Count 3.75 M/mm3 (4.1-5.4); Red Cell Distribution Width 13.6 % (11.5-14.0); White Blood Count 16.2 K/mm3 (4.0-10.5)
[2017-08-03] MEDS: Reglan 10 MG/2 ML IV SCH ×4 (07:10→22:40)
[2017-08-03] MEDS: BENADRYL 25 MG CAPSULE PO PRN ×3 (07:10→22:56)
[2017-08-03 07:17] LABS: ALBUMIN 2.7 g/dL (3.4-5.0); ALKALINE PHOSPHATASE 60 U/L (46-116); ANION GAP 11.9 MEQ/L (5-15); BLOOD UREA NITROGEN 15 mg/dL (9-20); CHLORIDE 105 mEq/L (98-107); Carbon Dioxide 27.6 mEq/L (21-32); Glucose 106 MG/DL (70-110); SGOT/AST 76 U/L (15-37); SGPT/ALT 89 U/L (12-78); Total Protein 5.3 gm/dL (6.4-8.2)
[2017-08-03 07:43] LABS: SODIUM 141 mEq/L (136-145)
[2017-08-03 07:50] LABS: Potassium 2.8 mEq/L (3.5-5.1)
[2017-08-03 07:56] LABS: Platelet Estimate NORMAL (NORMAL); Total Cells Counted 100; Toxic Granulation 1+
[2017-08-03] MEDS: POTASSIUM CHLORIDE 20 mEq IN WATER 100ML 20 MEQ/100 ML BAG IV SCH ×2 (08:12→09:55)
[2017-08-03] MEDS: Prozac 20 MG PO SCH (09:54)
[2017-08-03] MEDS: PROTONIX 40 MG IV IV SCH (09:54)
[2017-08-03] MEDS: Monistat 7 VG SCH (09:54)
[2017-08-03] MEDS: NEURONTIN 300 MG PO SCH ×3 (09:54→22:40)
[2017-08-03] MEDS: Robaxin 500 MG PO SCH ×4 (09:54→22:40)
[2017-08-03] MEDS: NON-FORMULARY ITEM PO SCH ×4 (09:55→22:40)
[2017-08-03] MEDS ORDERED: DIFLUCAN PO ONE (10:20)
--- NOTE | 2017-08-03 10:21 | PCM.NOTE ---
Date and Time: 08/03/17 1016 Subjective Assessment: she had a fever to 101.4 at 5:05 am today it is in the med area not in the vitals. tylenol helped this. She is feeling a little better today the abdominal pain is better the distension she says is improved. She has had 8 diarrhea stools overnight but no blood now. She has been sleeping and ate only a small amount yesterday. Objective Exam General Appearance: no apparent distress, alert Neurologic Exam: alert, oriented x 3, cooperative, normal mood/affect, nml cerebellar function, sensation nml, No motor deficits Skin Exam: normal color, warm, dry Eye Exam: PERRL, EOMI, eyes nml inspection Ears, Nose, Throat Exam: normal ENT inspection, pharynx normal, moist mucous membranes Neck Exam: normal inspection, non-tender, supple, full range of motion Respiratory Exam: normal breath sounds, lungs clear, No respiratory distress Cardiovascular Exam: regular rate/rhythm, normal heart sounds Gastrointestinal/Abdomen Exam: soft, normal bowel sounds, tenderness (mild), distention (mild), No mass Extremity Exam: normal inspection, normal range of motion Back Exam: normal inspection, normal range of motion, No CVA tenderness, No vertebral tenderness Pelvic Exam: deferred Rectal Exam: deferred OBJECTIVE DATA Vital Signs: Vital Signs - 24 hr Temp Pulse Resp BP Pulse Ox 08/03/17 07:14 99.7 F 83 16 122/68 91 L 08/03/17 04:00 99.4 F 89 16 141/83 92 L 08/03/17 00:00 98.9 F 91 H 15 129/82 92 L 08/02/17 20:00 98.6 F 82 16 138/73 93 L 08/02/17 17:00 94 L 08/02/17 15:38 98.7 F 84 18 122/75 94 L 08/02/17 13:00 96 08/02/17 12:10 98.5 F 83 20 122/71 96 Pain Assessment - Last Documented Pain Intensity 0 Pain Scale Used 0-10 Pain Scale Intake and Output: Intake & Output 07/31/17 08/01/17 08/02/17 08/03/17 11:59 11:59 11:59 11:59 Intake Total 2918 Output Total 100 Balance 2818 Weight 90.747 kg Lab Results: Lab Results-Last 24 Hours 08/03/17 08/03/17 Range/Units 06:00 06:00 WBC 16.2 H (4.0-10.5) K/mm3 RBC 3.75 L (4.1-5.4) M/mm3 Hgb 11.0 L (12.0-16.0) gm/dl Hct 35.1 (35-47) % MCV 93.6 (78-100) fl MCH 29.3 (26-32) pg MCHC 31.3 L (32-36) g/dl RDW 13.6 (11.5-14.0) % Plt Count 190 (150-450) K/mm3 MPV 11.0 H (6-9.5) fl Segmented Neutrophils 78 H (36.0-66.0) % Lymphocytes (Manual) 20 L (24-44) % Monocytes (Manual) 2 (0.0-12.0) % Differential Comment NORMAL Toxic Granulation 1+ Platelet Estimate NORMAL (NORMAL) Sodium 141 (136-145) mEq/L Potassium 2.8 L* (3.5-5.1) mEq/L Chloride 105 (98-107) mEq/L Carbon Dioxide 27.6 (21-32) mEq/L Anion Gap 11.9 (5-15) MEQ/L BUN 15 (9-20) mg/dL Creatinine 0.89 (0.55-1.30) mg/dl Estimated GFR > 60 ML/MIN Glucose 106 (70-110) MG/DL Calcium 7.2 L (8.5-10.1) mg/dL Total Bilirubin 0.20 (0.2-1.0) mg/dL AST 76 H (15-37) U/L ALT 89 H (12-78) U/L Alkaline Phosphatase 60 (46-116) U/L Serum Total Protein 5.3 L (6.4-8.2) gm/dL Albumin 2.7 L (3.4-5.0) g/dL Assessment/Plan (1) Sepsis Current Visit: Yes Status: Acute Assessment & Plan: with persistent fever and the persistent diarrhea continue the flagyl and po vanc will continue to hold off on the steroid given the + c. diff and she feels her symptoms are improved today and this was after it was stopped but possibility of autoimmune inflammatory bowel disease as well and if not improving may require steroids replace K recheck she has vaginal yeast infection per patient symptoms will treat with 150 mg po diflucan X1. (2) C. difficile colitis Current Visit: Yes Status: Acute (3) Hypomagnesemia Current Visit: Yes Status: Acute Code(s): E83.42 - HYPOMAGNESEMIA (4) Hypokalemia Current Visit: Yes Status: Acute Code(s): E87.6 - HYPOKALEMIA
[2017-08-03] MEDS ORDERED: Klor Con 10 MEQ PO ONE (14:53)
[2017-08-03] MEDS: DILAUDID 1 MG/1ML PCA IV PRN (15:55)
[2017-08-03] MEDS: Nicoderm CQ 21 MG TOP SCH (22:40)
[2017-08-04] MEDS: Phenergan 25 MG INJ IV PRN (03:07)
[2017-08-04] MEDS ORDERED: Sodium Chloride 0.9% 1000 ML 1,000 ML ONE (03:18)
[2017-08-04] MEDS ORDERED: Sodium Chloride 0.9% 1000 ML 1,000 ML IV SCH (03:30)
[2017-08-04 05:46] LABS: BASOPHIL % 0.1 % (0.0-0.4); Eosinophil % 2.4 % (0.00-5.0); Granulocytes % 52.3 % (36.0-66.0); Lymphocytes % 35.1 % (24.0-44.0); Mean Cell Volume 92.5 fl (78-100); Mean Platelet Volume 10.6 fl (6-9.5); Monocytes % 10.1 % (0.0-12.0); Platelet Count 179 K/mm3 (150-450); Red Blood Count 3.87 M/mm3 (4.1-5.4); Red Cell Distribution Width 13.4 % (11.5-14.0); White Blood Count 9.1 K/mm3 (4.0-10.5)
[2017-08-04 05:50] LABS: Mean Corpuscular Hemoglobin 29.4 pg (26-32)
[2017-08-04] MEDS: FLAGYL 500 MG IVPB 500 MG/100 ML BAG IV SCH (05:59)
[2017-08-04 06:09] LABS: ALBUMIN 2.7 g/dL (3.4-5.0); ALKALINE PHOSPHATASE 138 U/L (46-116); ANION GAP 9.2 MEQ/L (5-15); BLOOD UREA NITROGEN 8 mg/dL (9-20); CHLORIDE 105 mEq/L (98-107); Carbon Dioxide 30.2 mEq/L (21-32); Glucose 104 MG/DL (70-110); MAGNESIUM 1.9 mg/dL (1.8-2.4); Potassium 3.5 mEq/L (3.5-5.1); SGOT/AST 159 U/L (15-37); SGPT/ALT 231 U/L (12-78); SODIUM 141 mEq/L (136-145); Total Protein 5.9 gm/dL (6.4-8.2)
[2017-08-04] MEDS: BENADRYL 25 MG CAPSULE PO PRN (08:52)
[2017-08-04] MEDS: Reglan 10 MG/2 ML IV SCH (09:00)
--- NOTE | 2017-08-04 10:10 | PCM.DS ---
Discharge Summary Date of Admission: 08/02/17 08:05 Date of Discharge: 08/04/2017 Admitting Physician: ERIK SAWYER Primary Care Provider: ERIK SAWYER Allergies Allergies midazolam HCl [From Versed] Allergy (Severe, Verified 07/31/17 02:24) Swelling of Tongue and Lips clindamycin Allergy (Intermediate, Verified 07/31/17 02:24) Stomach swelling sulfamethoxazole [From Bactrim] Allergy (Mild, Verified 07/31/17 02:24) Rash trimethoprim [From Bactrim] Allergy (Mild, Verified 07/31/17 02:24) Rash morphine Adverse Reaction (Mild, Verified 07/31/17 02:24) "makes me mean" pt states it makes her mean Hospital Summary - Hospital Course Hospital Course: she presented with colitis of the right colon and sepsis and was initially treated with steroids, flagyl and levoquin. The c. diff returned positive and the levoquin was stopped and steroids stopped and oral vanc started. She continued to have diarrhea but it was improving and less frequent. She initially had severe abdominal pain but this also improved. her luekocytosis improved. She had yeast infection vaginally treated with diflucan 150 mg po once. She also began having sore throat as well. She is started on nystatin and salt water gargles for this with outpatient f/u. Her liver enzymes were initially normal range but began to trend up at time of discharge but was asymptomatic from this at this time. This was discussed with the patient and agreed to have recheck as outpatient. She was afebrile at time of discharge for >24 hours last fever to 101.4 on 08/03 at 05:00. She has outpatient follow up with GI Dr. Patel as well given her recurrent episodes of colitis. - Vitals & Intake/Output Vital Signs: Vital Signs Temperature 98.8 F 08/04/17 07:11 Pulse Rate 86 08/04/17 07:11 Respiratory Rate 16 08/04/17 07:11 Blood Pressure 125/73 08/04/17 07:11 O2 Sat by Pulse Oximetry 91 L 08/04/17 07:11 Intake & Output: Intake & Output 08/01/17 08/02/17 08/03/17 08/04/17 11:59 11:59 11:59 11:59 Intake Total 2918 2461 Output Total 100 900 Balance 2818 1561 Weight 90.747 kg 88.195 kg - Lab Result Diagrams: 08/04/17 05:30 08/04/17 05:30 Lab Results-Last 24 Hrs: Lab Results-Last 24 Hours 08/03/17 08/04/17 08/04/17 Range/Units 14:05 05:30 05:30 WBC 9.1 (4.0-10.5) K/mm3 RBC 3.87 L (4.1-5.4) M/mm3 Hgb 11.4 L (12.0-16.0) gm/dl Hct 35.8 (35-47) % MCV 92.5 (78-100) fl MCH 29.4 (26-32) pg MCHC 31.8 L (32-36) g/dl RDW 13.4 (11.5-14.0) % Plt Count 179 (150-450) K/mm3 MPV 10.6 H (6-9.5) fl Gran % 52.3 (36.0-66.0) % Lymphocytes % 35.1 (24.0-44.0) % Monocytes % 10.1 (0.0-12.0) % Eosinophils % 2.4 (0.00-5.0) % Basophils % 0.1 (0.0-0.4) % Basophils # 0.01 (0-0.4) Sodium 141 (136-145) mEq/L Potassium 3.2 L 3.5 (3.5-5.1) mEq/L Chloride 105 (98-107) mEq/L Carbon Dioxide 30.2 (21-32) mEq/L Anion Gap 9.2 (5-15) MEQ/L BUN 8 L (9-20) mg/dL Creatinine 0.75 (0.55-1.30) mg/dl Estimated GFR > 60 ML/MIN Glucose 104 (70-110) MG/DL Calcium 8.1 L (8.5-10.1) mg/dL Magnesium 1.9 (1.8-2.4) mg/dL Total Bilirubin 0.80 (0.2-1.0) mg/dL AST 159 H (15-37) U/L ALT 231 H (12-78) U/L Alkaline Phosphatase 138 H (46-116) U/L Serum Total Protein 5.9 L (6.4-8.2) gm/dL Albumin 2.7 L (3.4-5.0) g/dL Discharge Exam General Appearance: no apparent distress, alert Neurologic Exam: alert, oriented x 3, cooperative, normal mood/affect, nml cerebellar function, sensation nml, No motor deficits Skin Exam: normal color, warm, dry Eye Exam: PERRL, EOMI, eyes nml inspection Ears, Nose, Throat Exam: normal ENT inspection, pharynx normal, moist mucous membranes, pharyngeal erythema (diffuse erthyma posterior pharynx and soft palate with no exudates mild tenderness in the anterior neck with no adenopathy) Neck Exam: normal inspection, non-tender, supple, full range of motion Respiratory Exam: normal breath sounds, lungs clear, No respiratory distress Cardiovascular Exam: regular rate/rhythm, normal heart sounds Gastrointestinal/Abdomen Exam: soft, No tenderness, No mass Extremity Exam: normal inspection, normal range of motion Back Exam: normal inspection, normal range of motion, No CVA tenderness, No vertebral tenderness Pelvic Exam: deferred Rectal Exam: deferred Final Diagnosis/Problem List - Final Discharge Diagnosis/Problem (1) Sepsis Current Visit: Yes Status: Acute (2) C. difficile colitis Current Visit: Yes Status: Acute (3) Hypomagnesemia Current Visit: Yes Status: Resolved (4) Hypokalemia Current Visit: Yes Status: Resolved (5) Elevated liver enzymes Current Visit: Yes Status: Acute (6) Pharyngitis Current Visit: Yes Status: Acute - Discharge Discharge Date: 08/04/17 Disposition: Home, Self-Care Condition: Stable Prescriptions: New Nystatin 60 ml [Nystatin SUSPENSION 60 ML] 5 ml PO Q6H 7 Days bottle Vancomycin HCl 125 mg PO Q6H 7 Days ml Continue Methylphenidate HCl [Ritalin] 20 mg PO TID Cyanocobalamin 1000 Mcg/ml [Cyanocobalamin B-12 1000 MCG/ML] 1,000 mcg IM UD Methocarbamol 500 mg [Robaxin 500 MG] 500 mg PO QID Fluoxetine HCl 20 mg [Prozac 20 MG] 20 mg PO DAILY Gabapentin 300 mg PO TID Additional Instructions: repeat blood work cbc and CMP in 1 week use salt water gargle as needed for sore throat Follow up with: KAT PATEL MD [NON-STAFF PHY W/O PRIVILEGES] - 1 Week ERIK SAWYER [Primary Care Provider] - 1 Week
[2017-08-04] MEDS: NEURONTIN 300 MG PO SCH (10:37)
[2017-08-04] MEDS: Prozac 20 MG PO SCH (10:37)
[2017-08-04] MEDS: Robaxin 500 MG PO SCH (10:38)
[2017-08-04] MEDS: Monistat 7 VG SCH (10:40)
[2017-08-04] MEDS: NON-FORMULARY ITEM PO SCH (10:40)
[2017-08-04] MEDS: PROTONIX 40 MG IV IV SCH (10:41)
[2017-08-04 11:23] VITALS: BP 144/86; PULSE 91; O2SAT 93
[2017-08-04] MEDS: DILAUDID 1 MG/1ML PCA IV PRN (11:50)
== END 2017-08-04 11:50 | disposition home or self-care (01) | DRG 872 ==
LOC: ED 01:23 → MED SURG 04:13 → OBSVTOIN 08-02 08:05
PROVIDERS: ADMIT Family Medicine; ATTEND Family Medicine
DX: A41.9 Sepsis, unspecified organism (principal); A04.72 Enterocolitis due to Clostridium difficile, not specified as recurrent; E83.42 Hypomagnesemia; E87.6 Hypokalemia; R74.8 Abnormal levels of other serum enzymes; J02.9 Acute pharyngitis, unspecified; F41.9 Anxiety disorder, unspecified
CPT/HCPCS: 36000; 36415; 74176; 80048; 80053; 81002; 82150; 83690; 83735; 84132; 84703; 85025; 87040; 87045; 87046; 87335; 87493; 87631; 93268; 96360; 96365; 96367; 96374; 96375; 99285; G0378; J1170; J1956; J2405; J2550; J2920; J2930; J3010; J3475; J3480; L0625; A9270-GY

== ENCOUNTER 2017-08-05 15:15 | Observation (INO) | payer OTHER ==
[2017-08-05 15:51] LABS: Mean Cell Volume 90.7 fl (78-100); Mean Corpuscular Hemoglobin 29.3 pg (26-32); Mean Platelet Volume 10.6 fl (6-9.5); Platelet Count 264 K/mm3 (150-450); Red Blood Count 4.85 M/mm3 (4.1-5.4); Red Cell Distribution Width 13.6 % (11.5-14.0); White Blood Count 15.8 K/mm3 (4.0-10.5)
[2017-08-05] MEDS ORDERED: Lactated Ringers 1,000 ML IV SCH (16:00)
[2017-08-05] MEDS: Sodium Chloride 0.9% 1000 ML 1,000 ML IV SCH ×2 (16:11→23:15)
[2017-08-05 16:19] LABS: ALBUMIN 3.3 g/dL (3.4-5.0); ALKALINE PHOSPHATASE 141 U/L (46-116); BLOOD UREA NITROGEN 11 mg/dL (9-20); CHLORIDE 105 mEq/L (98-107); Carbon Dioxide 26.7 mEq/L (21-32); Glucose 103 MG/DL (70-110); Potassium 4.3 mEq/L (3.5-5.1); SGOT/AST 36 U/L (15-37); SGPT/ALT 150 U/L (12-78); SODIUM 140 mEq/L (136-145); Total Protein 7.5 gm/dL (6.4-8.2)
[2017-08-05 16:52] LABS: ATYPICAL LYMPHS 2 %; Eosinophil 2 % (0.00-3.0); Platelet Estimate NORMAL (NORMAL); Total Cells Counted 100
[2017-08-05] MEDS: NON-FORMULARY ITEM PO SCH ×2 (17:50→23:00)
--- NOTE | 2017-08-05 19:27 | PCM.HP ---
History of Present Illness - Chief Complaint Chief Complaint: C Diff Dehydration History of Present Illness: is a 37 year old female pt who was in [facility] for 5d and released yesterday with a dx of C. diff. She was taking 125 mg vancomycin po QID. She started having temp to 100.1 with chills last night and increasing abdominal pain so she called the office today and was re-admitted. She is c/o RUQ pain, crampy, intermittent, 5/10 radiating to R flank. No vomiting. Had about 6 episodes of diarrhea today. She has also c/o rectal bleeding recently. She states she's had no more rectal bleeding since being admitted on the vancomycin 250mg po q6h. She is also c/o sore throat, which started 2d ago. - Review of Systems Constitutional: Chills, Other (temp to 100.1) Ears, Nose, & Throat: Throat Pain Abdominal/Gastrointestinal: Abdominal Pain, Diarrhea Psychological: Anxiety All Other Systems: Reviewed and Negative Medications & Allergies Home Medications: Home Medication List Cyanocobalamin 1000 Mcg/ml [Cyanocobalamin B-12 1000 MCG/ML] 1,000 mcg IM UD 12/20/14 [History Confirmed 08/05/17] Methylphenidate HCl [Ritalin] 20 mg PO TID 12/20/14 [History Confirmed 08/05/17] Fluoxetine HCl 20 mg [Prozac 20 MG] 20 mg PO DAILY 06/02/17 [History Confirmed 08/05/17] Methocarbamol 500 mg [Robaxin 500 MG] 500 mg PO QID 06/02/17 [History Confirmed 08/05/17] Gabapentin 300 mg PO TID 07/31/17 [History Confirmed 08/05/17] Nystatin 60 ml [Nystatin SUSPENSION 60 ML] 5 ml PO Q6H 7 Days bottle [Rx Confirmed 08/05/17] Vancomycin HCl 125 mg PO Q6H 7 Days ml 08/04/17 [Rx Confirmed 08/05/17] Allergies/Adverse Reactions: Allergies Allergy/AdvReac Type Severity Reaction Status Date / Time midazolam HCl [From Versed] Allergy Severe Swelling Verified 08/05/17 15:32 of Tongue and Lips clindamycin Allergy Intermediate Stomach Verified 08/05/17 15:32 swelling sulfamethoxazole Allergy Mild Rash Verified 08/05/17 15:32 [From Bactrim] trimethoprim [From Bactrim] Allergy Mild Rash Verified 08/05/17 15:32 morphine AdvReac Mild "makes me Verified 08/05/17 15:32 mean" - Past Medical History Past Medical History: Yes Neurological History: No Pertinent History ENT History: No Pertinent History Cardiac History: No Pertinent History Respiratory History: No Pertinent History Endocrine Medical History: No Pertinent History Musculoskelatal History: Other GI Medical History: Gallbladder Disease, Other History: Other Pyscho-Social History: Anxiety Reproductive Disorders: Fibroids Comment: 3 HIP SURGERIES D/T HIP IMPINGEMENT; R KNEE SCOPE, CUBITAL TUNNEL RELEASE, hx of elevated white blood cell count x 3 months. - Female History Are you now?: No - Past Surgical History Past Surgical History: Yes Neuro Surgical History: No Pertinent History Cardiac History: No Pertinent History Respiratory Surgery: No Pertinent History GI Surgical History: Cholecystectomy Genitourinary Surgical Hx: No Pertinent History Musculskeletal Surgical Hx: Orthopedic Surgery Female Surgical History: Section, Hysterectomy, Other Other Surgical History: hysterectomy, right carpletunnel breast reduction, right hip surg. right knee scope . - Social History Smoking Status: Current every day smoker How long have you smoked: 20 years Exposure to second hand smoke: No Alcohol: None Drug Use: none - Physical Exam Vital Signs: Vital Signs - 24 hr Temp Pulse Resp BP Pulse Ox 08/05/17 15:42 100.1 F 113 H 16 134/98 97 08/05/17 15:38 100.9 F 113 H 16 134/98 97 08/05/17 15:36 100.9 F 113 H 134/98 General Appearance: mild distress (chills), alert Neurologic Exam: oriented x 3, cooperative Eye Exam: eyes nml inspection Ears, Nose, Throat Exam: moist mucous membranes Neck Exam: normal inspection, non-tender, No lymphadenopathy Respiratory Exam: normal breath sounds, lungs clear, No crackles/rales, No rhonchi, No wheezing Cardiovascular Exam: regular rate/rhythm, normal heart sounds, No murmur Gastrointestinal/Abdomen Exam: soft, normal bowel sounds, tenderness (RUQ, RLQ) , No distention, No mass, No guarding, No rebound Extremity Exam: No pedal edema, No swelling Skin Exam: normal color, warm, diaphoresis Results - Labs Lab/Micro Results: Lab Results-Last 24 Hours 08/05/17 08/05/17 Range/Units 15:47 15:47 WBC 15.8 H (4.0-10.5) K/mm3 RBC 4.85 (4.1-5.4) M/mm3 Hgb 14.2 (12.0-16.0) gm/dl Hct 44.0 (35-47) % MCV 90.7 (78-100) fl MCH 29.3 (26-32) pg MCHC 32.3 (32-36) g/dl RDW 13.6 (11.5-14.0) % Plt Count 264 (150-450) K/mm3 MPV 10.6 H (6-9.5) fl Segmented Neutrophils 76 H (36.0-66.0) % Lymphocytes (Manual) 17 L (24-44) % Monocytes (Manual) 3 (0.0-12.0) % Eosinophils (Manual) 2 (0.00-3.0) % Differential Comment NORMAL Atypical Lymphocytes 2 % Platelet Estimate NORMAL (NORMAL) Sodium 140 (136-145) mEq/L Potassium 4.3 (3.5-5.1) mEq/L Chloride 105 (98-107) mEq/L Carbon Dioxide 26.7 (21-32) mEq/L Anion Gap 13.0 (5-15) MEQ/L BUN 11 (9-20) mg/dL Creatinine 0.84 (0.55-1.30) mg/dl Estimated GFR > 60 ML/MIN Glucose 103 (70-110) MG/DL Calcium 9.3 (8.5-10.1) mg/dL Total Bilirubin 0.20 (0.2-1.0) mg/dL AST 36 (15-37) U/L ALT 150 H (12-78) U/L Alkaline Phosphatase 141 H (46-116) U/L Serum Total Protein 7.5 (6.4-8.2) gm/dL Albumin 3.3 L (3.4-5.0) g/dL Assessment/Plan (1) C. difficile colitis Current Visit: No Status: Acute Assessment & Plan: On po vancomycin, 250mg q6h. (2) Abdominal pain Current Visit: No Status: Acute Qualifiers: Abdominal location: right upper quadrant Qualified Code(s): R10.11 - Right upper quadrant pain Assessment & Plan: Will try po luis meds prn Code(s): R10.9 - UNSPECIFIED ABDOMINAL PAIN (3) Pharyngitis Current Visit: No Status: Acute Qualifiers: Pharyngitis/tonsillitis etiology: unspecified etiology Qualified Code(s): J02.9 - Acute pharyngitis, unspecified Assessment & Plan: With recent abx, wonder if she has candidal esophagitis. On nystatin po. Code(s): J02.9 - ACUTE PHARYNGITIS, UNSPECIFIED (4) Elevated liver enzymes Current Visit: No Status: Acute Assessment & Plan: ALT is 150, AST is nl. Recheck in a.m. Code(s): R74.8 - ABNORMAL LEVELS OF OTHER SERUM ENZYMES
[2017-08-05] MEDS: Nystatin SUSPENSION 60 ML PO SCH (22:57)
[2017-08-05] MEDS: Prozac 20 MG PO SCH (22:58)
[2017-08-05] MEDS: Robaxin 500 MG PO PRN (22:58)
[2017-08-05] MEDS: NEURONTIN 300 MG PO SCH (22:58)
[2017-08-05] MEDS: Phenergan 25 MG INJ IV PRN (22:59)
[2017-08-05] MEDS: Norco 10/325 MG Tablet PO PRN (23:14)
[2017-08-06] MEDS: Nystatin SUSPENSION 60 ML PO SCH ×3 (00:06→11:36)
[2017-08-06] MEDS: Norco 10/325 MG Tablet PO PRN ×3 (04:05→12:31)
[2017-08-06] MEDS: Zofran 4 MG/2 ML VIAL IV PRN ×2 (04:06→12:31)
[2017-08-06 05:41] LABS: Mean Cell Volume 92.1 fl (78-100); Mean Platelet Volume 10.6 fl (6-9.5); Platelet Count 260 K/mm3 (150-450); Red Blood Count 4.03 M/mm3 (4.1-5.4); Red Cell Distribution Width 13.5 % (11.5-14.0); White Blood Count 12.7 K/mm3 (4.0-10.5)
[2017-08-06] MEDS: Sodium Chloride 0.9% 1000 ML 1,000 ML IV SCH (05:57)
[2017-08-06 06:23] LABS: ALBUMIN 2.5 g/dL (3.4-5.0); ALKALINE PHOSPHATASE 94 U/L (46-116); ANION GAP 9.8 MEQ/L (5-15); BLOOD UREA NITROGEN 6 mg/dL (9-20); CHLORIDE 109 mEq/L (98-107); Carbon Dioxide 25.9 mEq/L (21-32); Glucose 98 MG/DL (70-110); Potassium 3.9 mEq/L (3.5-5.1); SGOT/AST 16 U/L (15-37); SGPT/ALT 99 U/L (12-78); SODIUM 141 mEq/L (136-145); Total Protein 5.8 gm/dL (6.4-8.2)
[2017-08-06 07:01] LABS: ATYPICAL LYMPHS 2 %; BAND 1 % (0.0-2.0); Eosinophil 3 % (0.00-3.0); Platelet Estimate NORMAL (NORMAL); Total Cells Counted 100
[2017-08-06] MEDS: Phenergan 25 MG INJ IV PRN (08:35)
[2017-08-06 08:51] LABS: Bilirubin NEGATIVE (NEGATIVE); Blood NEGATIVE Ery/ul (0-5); COMPLETE URINE MICROSCOPIC? NO; Collection Type VOID; Glucose NEGATIVE (NEGATIVE); Leukocyte Esterase NEGATIVE (NEGATIVE)
[2017-08-06] MEDS: NEURONTIN 300 MG PO SCH (09:45)
[2017-08-06] MEDS: Robaxin 500 MG PO PRN (09:45)
[2017-08-06] MEDS: Prozac 20 MG PO SCH (09:45)
[2017-08-06] MEDS: NON-FORMULARY ITEM PO SCH ×2 (09:47→13:14)
[2017-08-06 11:25] VITALS: BP 118/67; PULSE 96; O2SAT 94
--- NOTE | 2017-08-06 13:32 | PCM.DS ---
Discharge Summary Date of Admission: 08/05/17 15:15 Date of Discharge: 08/06/2017 Admitting Physician: CHANTEL MISHRA Primary Care Provider: ERIK SAWYER Allergies Allergies midazolam HCl [From Versed] Allergy (Severe, Verified 08/05/17 15:32) Swelling of Tongue and Lips clindamycin Allergy (Intermediate, Verified 08/05/17 15:32) Stomach swelling sulfamethoxazole [From Bactrim] Allergy (Mild, Verified 08/05/17 15:32) Rash trimethoprim [From Bactrim] Allergy (Mild, Verified 08/05/17 15:32) Rash morphine Adverse Reaction (Mild, Verified 08/05/17 15:32) "makes me mean" pt states it makes her mean Hospital Summary - Hospital Course Hospital Course: She was discharged on Saturday for c.diff and the diarrhea picked back up a little and then on Saturday she became very tired fatigued and shaking chills with fever. She has sore throat as well that is improving she has some nasal drainage as well. She was taking the vancomycin at home. She called office and was admitted by Dr. Espinoza who increaed the po vanc and gave iv fluids and her fever resolved. She had no increased abdominal pain the pain has resolved. She has no vomiting or bloody stools. She is feeling fatigued and chilled at times now but otherwise doing well. She had 3 loose stools after arrival but non the am/afternoon of discharge and desires to be discharged to home again. She has f/ u with GI as well for this. - Vitals & Intake/Output Vital Signs: Vital Signs Temperature 98.8 F 08/06/17 11:24 Pulse Rate 96 H 08/06/17 11:24 Respiratory Rate 16 08/06/17 11:24 Blood Pressure 118/67 08/06/17 11:24 O2 Sat by Pulse Oximetry 94 L 08/06/17 11:24 Intake & Output: Intake & Output 08/04/17 08/05/17 08/06/17 08/07/17 11:59 11:59 11:59 11:59 Intake Total 2251 840 Output Total 400 400 Balance 1851 440 Weight 81.193 kg - Lab Result Diagrams: 08/06/17 05:25 08/06/17 05:25 Lab Results-Last 24 Hrs: Lab Results-Last 24 Hours 08/05/17 08/05/17 08/06/17 Range/Units 15:47 15:47 05:25 WBC 15.8 H 12.7 H (4.0-10.5) K/mm3 RBC 4.85 4.03 L (4.1-5.4) M/mm3 Hgb 14.2 11.7 L (12.0-16.0) gm/dl Hct 44.0 37.1 (35-47) % MCV 90.7 92.1 (78-100) fl MCH 29.3 29.0 (26-32) pg MCHC 32.3 31.5 L (32-36) g/dl RDW 13.6 13.5 (11.5-14.0) % Plt Count 264 260 (150-450) K/mm3 MPV 10.6 H 10.6 H (6-9.5) fl Segmented Neutrophils 76 H 49 (36.0-66.0) % Band Neutrophils 1 (0.0-2.0) % Lymphocytes (Manual) 17 L 35 (24-44) % Monocytes (Manual) 3 10 (0.0-12.0) % Eosinophils (Manual) 2 3 (0.00-3.0) % Differential Comment NORMAL NORMAL Atypical Lymphocytes 2 2 % Platelet Estimate NORMAL NORMAL (NORMAL) Sodium 140 (136-145) mEq/L Potassium 4.3 (3.5-5.1) mEq/L Chloride 105 (98-107) mEq/L Carbon Dioxide 26.7 (21-32) mEq/L Anion Gap 13.0 (5-15) MEQ/L BUN 11 (9-20) mg/dL Creatinine 0.84 (0.55-1.30) mg/dl Estimated GFR > 60 ML/MIN Glucose 103 (70-110) MG/DL Calcium 9.3 (8.5-10.1) mg/dL Total Bilirubin 0.20 (0.2-1.0) mg/dL AST 36 (15-37) U/L ALT 150 H (12-78) U/L Alkaline Phosphatase 141 H (46-116) U/L Serum Total Protein 7.5 (6.4-8.2) gm/dL Albumin 3.3 L (3.4-5.0) g/dL Ur Collection Type Urine Color (YELLOW) Urine Appearance (CLEAR) Urine pH (5-6) Ur Specific [place] (1.005-1.025) Urine Protein (Negative) Urine Ketones (NEGATIVE) Urine Blood (0-5) Chao/ul Urine Nitrite (NEGATIVE) Urine Bilirubin (NEGATIVE) Urine Urobilinogen (0-1) mg/dL Ur Leukocyte Esterase (NEGATIVE) Urine Glucose (NEGATIVE) mg/dL Specimen Received 08/06/17 08/06/17 Range/Units 05:25 08:30 WBC (4.0-10.5) K/mm3 RBC (4.1-5.4) M/mm3 Hgb (12.0-16.0) gm/dl Hct (35-47) % MCV (78-100) fl MCH (26-32) pg MCHC (32-36) g/dl RDW (11.5-14.0) % Plt Count (150-450) K/mm3 MPV (6-9.5) fl Segmented Neutrophils (36.0-66.0) % Band Neutrophils (0.0-2.0) % Lymphocytes (Manual) (24-44) % Monocytes (Manual) (0.0-12.0) % Eosinophils (Manual) (0.00-3.0) % Differential Comment Atypical Lymphocytes % Platelet Estimate (NORMAL) Sodium 141 (136-145) mEq/L Potassium 3.9 (3.5-5.1) mEq/L Chloride 109 H (98-107) mEq/L Carbon Dioxide 25.9 (21-32) mEq/L Anion Gap 9.8 (5-15) MEQ/L BUN 6 L (9-20) mg/dL Creatinine 0.71 (0.55-1.30) mg/dl Estimated GFR > 60 ML/MIN Glucose 98 (70-110) MG/DL Calcium 7.8 L (8.5-10.1) mg/dL Total Bilirubin 0.20 (0.2-1.0) mg/dL AST 16 (15-37) U/L ALT 99 H (12-78) U/L Alkaline Phosphatase 94 (46-116) U/L Serum Total Protein 5.8 L (6.4-8.2) gm/dL Albumin 2.5 L (3.4-5.0) g/dL Ur Collection Type VOID Urine Color STRAW (YELLOW) Urine Appearance CLEAR (CLEAR) Urine pH 7.0 (5-6) Ur Specific [place] 1.005 (1.005-1.025) Urine Protein NEGATIVE (Negative) Urine Ketones NEGATIVE (NEGATIVE) Urine Blood NEGATIVE (0-5) Chao/ul Urine Nitrite NEGATIVE (NEGATIVE) Urine Bilirubin NEGATIVE (NEGATIVE) Urine Urobilinogen NORMAL (0-1) mg/dL Ur Leukocyte Esterase NEGATIVE (NEGATIVE) Urine Glucose NEGATIVE (NEGATIVE) mg/dL Specimen Received 08/06/17 0845 - Procedures and Test Procedures and Tests throughout Hospitalization: Therapy Orders & Screens 08/05/17 16:01 Smoking Cessation Education ONCE Comment: Diagnosis: C Diff Dehydration Smoking Status: Current every day smoker How long have you smoked: 20 years Have you smoked in the past 12 months: No Approximately how many cigarettes per day: 1 pack per day Do you dip or chew tobacco: No Discharge Exam General Appearance: no apparent distress, alert Neurologic Exam: alert, oriented x 3, cooperative, normal mood/affect, nml cerebellar function, sensation nml, No motor deficits Skin Exam: normal color, warm, dry Eye Exam: PERRL, EOMI, eyes nml inspection Ears, Nose, Throat Exam: normal ENT inspection, pharynx normal, moist mucous membranes, other (posterior nasal drainage. no exudates. erythema has resolved) Neck Exam: normal inspection, non-tender, supple, full range of motion Respiratory Exam: normal breath sounds, lungs clear, No respiratory distress Cardiovascular Exam: regular rate/rhythm, normal heart sounds Gastrointestinal/Abdomen Exam: soft, No tenderness, No mass Extremity Exam: normal inspection, normal range of motion Back Exam: normal inspection, normal range of motion, No CVA tenderness, No vertebral tenderness Pelvic Exam: deferred Rectal Exam: deferred Final Diagnosis/Problem List - Final Discharge Diagnosis/Problem (1) C. difficile colitis Current Visit: Yes Status: Acute - Discharge Discharge Date: 08/06/17 Disposition: Home, Self-Care Condition: Stable Prescriptions: New Promethazine HCl 25 mg [Phenergan 25 mg] 25 mg PO Q6H PRN #30 tablet PRN Reason: Nausea Continue Cyanocobalamin 1000 Mcg/ml [Cyanocobalamin B-12 1000 MCG/ML] 1,000 mcg IM UD Methocarbamol 500 mg [Robaxin 500 MG] 500 mg PO QID Fluoxetine HCl 20 mg [Prozac 20 MG] 20 mg PO DAILY Gabapentin 300 mg PO TID Nystatin 60 ml [Nystatin SUSPENSION 60 ML] 5 ml PO Q6H 7 Days bottle Changed Vancomycin HCl 250 mg PO Q6H 10 Days #200 ml Discontinued Methylphenidate HCl [Ritalin] 20 mg PO TID Follow up with: ERIK SAWYER [Primary Care Provider] - 1 Week KAT GRECO MD [NON-STAFF PHY W/O PRIVILEGES] - 1 Week Forms: Patient Portal Information
== END 2017-08-06 14:35 | disposition home or self-care (01) ==
LOC: MED SURG 15:15
PROVIDERS: ADMIT Family Medicine; ATTEND Family Medicine
DX: A04.72 Enterocolitis due to Clostridium difficile, not specified as recurrent (principal); F32.9 Major depressive disorder, single episode, unspecified; Z72.0 Tobacco use; R10.11 Right upper quadrant pain; J02.9 Acute pharyngitis, unspecified; R74.8 Abnormal levels of other serum enzymes; E86.0 Dehydration
CPT/HCPCS: 36415; 80053; 81002; 85025; G0378; J2405; J2550; A9270-GY

== ENCOUNTER 2019-10-29 07:17 | Day surgery (SDC) | payer OTHER ==
--- NOTE | 2019-10-27 14:40 | HP ---
DATE OF SURGERY: 10/29/2019 ANTICIPATED PROCEDURE: Colonoscopy. HISTORY OF PRESENT ILLNESS: She had a change in bowel habits and bleeding per rectum. History of polyps and Clostridium difficile, presents for colonoscopy. PAST MEDICAL HISTORY: ALLERGIES: CLINDAMYCIN. BACTRIM. VERSED. MORPHINE. MEDICATIONS: Neurontin. Methotrexate. [place]. Tramadol. PAST SURGICAL HISTORY: section. Hip surgery. Hysterectomy. Breast reduction. SOCIAL HISTORY: Negative. FAMILY HISTORY: Negative. PHYSICAL EXAMINATION: VITAL SIGNS: Normal. CHEST: Clear. COR: Regular. ABDOMEN: Satisfactory. PLAN: Colonoscopy.
[2019-10-29] MEDS ORDERED: Lactated Ringers 1,000 ML IV SCH (08:00)
[2019-10-29] MEDS ORDERED: DIPRIVAN 200 MG/20 ML IV ONE ×2 (09:38→10:05)
[2019-10-29 11:11] VITALS: O2SAT 95
[2019-10-29 11:13] VITALS: BP 121/78; PULSE 90
[2019-10-29 13:55] LABS: 027 TOX PROD PRESUMPTIVE NEGATIVE (NEGATIVE); TOXIGENIC C. DIFF ORG NEGATIVE (NEGATIVE)
--- NOTE | 2019-10-29 15:18 | OP ---
SURGERY DATE/TIME: 10/29/2019 0941 PREOPERATIVE DIAGNOSIS: Follow-up for Clostridium difficile and rectal bleeding. POSTOPERATIVE DIAGNOSIS: Findings moderate internal hemorrhoids. PROCEDURE: Colonoscopy complete to cecum. SURGEON: Daniele Han M.D. ANESTHESIA: MAC. COMPLICATIONS: None. CONDITION: Stable. INDICATION: A patient requiring evaluation. DESCRIPTION OF PROCEDURE: Taken to endoscopy. MAC sedation provided. Scope advanced to the cecum. Base of cecum, ileocecal valve was normal. Ascending, hepatic, transverse, splenic, descending, sigmoid, rectum, anus moderate internal hemorrhoids. A good prep but not an excellent prep was present. Withdrawal time about six minutes. There were no mucosal lesions noted. A stool sample was taken for Clostridium difficile, ova and parasite, stool pathogen. Findings were discussed with the in the waiting room.
== END 2019-10-29 11:00 | disposition home or self-care (01) ==
LOC: SDC 07:17
PROVIDERS: ATTEND Surgery
DX: K64.8 Other hemorrhoids (principal); Z09 Encounter for follow-up examination after completed treatment for conditions other than malignant neoplasm; K62.5 Hemorrhage of anus and rectum; R19.4 Change in bowel habit
CPT/HCPCS: 87493; J2704

== ENCOUNTER 2020-06-02 16:32 | Observation (INO) | payer OTHER ==
[2020-06-02] MEDS ORDERED: MORPHINE SULFATE 10 MG/ML IV PRN (17:06)
[2020-06-02 17:22] LABS: Absolute Neutrophil Ct (ANC) 6.65 (1.4-6.9); BASOPHIL % 0.2 % (0.0-0.4); Basophil (Absolute #) 0.02 (0-0.4); Eosinophil % 1.9 % (0.00-5.0); Hematocrit 43.9 % (35-47); Hemoglobin 14.4 gm/dl (12.0-16.0); Lymphocyte (Absolute #) 2.76 (1.0-4.6); Lymphocytes % 26.7 % (24.0-44.0); Mean Cell Volume 92.6 fl (78-100); Mean Corpuscular Hemoglobin 30.4 pg (26-32); Mean Corpuscular Hgb Concent. 32.8 g/dl (32-36); Mean Platelet Volume 10.6 fl (7.5-11.0); Monocytes % 6.8 % (0.0-12.0); Neutrophil % 64.4 % (36.0-66.0); Platelet Count 288 K/mm3 (150-450); Red Blood Count 4.74 M/mm3 (4.1-5.4); Red Cell Distribution Width 12.9 % (11.5-14.0); White Blood Count 10.3 K/mm3 (4.0-10.5)
[2020-06-02 17:38] LABS: ALBUMIN 4.6 g/dL (3.5-5.0); ALKALINE PHOSPHATASE 79 U/L (38-126); AMYLASE 59 U/L (30-110); ANION GAP 12.7 MEQ/L (5-15); BLOOD UREA NITROGEN 11 mg/dL (7-17); CHLORIDE 101 mmol/L (98-107); Calcium 9.7 mg/dL (8.4-10.2); Carbon Dioxide 27 mmol/L (22-30); Creatinine 1 0.75 mg/dL (0.52-1.04); EST GLOMERULAR FILTRATION RATE > 60.0 ML/MIN; Glucose 120 mg/dL (74-106); LIPASE 34 U/L (23-300); MAGNESIUM 1.9 mg/dL (1.6-2.3); Potassium 4.1 mmol/L (3.5-5.1); SGOT/AST 23 U/L (14-36); SGPT/ALT 71 U/L (0-35); SODIUM 137 mmol/L (137-145); Total Protein 7.8 g/dL (6.3-8.2)
[2020-06-02] MEDS: Zofran 4 MG/2 ML VIAL IV PRN ×2 (17:38→23:12)
[2020-06-02] MEDS: Lactated Ringers 1,000 ML IV SCH (17:42)
[2020-06-02 18:35] LABS: Appearance CLEAR (CLEAR); Bilirubin NEGATIVE (NEGATIVE); Blood NEGATIVE Ery/ul (0-5); Glucose NEGATIVE (NEGATIVE); Ketones NEGATIVE (NEGATIVE); Leukocyte Esterase NEGATIVE (NEGATIVE); Mucus SLIGHT /HPF (NEGATIVE); Nitrite NEGATIVE (NEGATIVE); Protein,Urine Dip NEGATIVE (Negative); Specific Gravity 1.011 (1.005-1.025); Urobilinogen NEGATIVE mg/dL (0-1)
[2020-06-02] MEDS: Phenergan 25 MG INJ IV PRN (18:38)
[2020-06-02 18:40] LABS: Bacteria NONE SEEN /HPF (NEGATIVE)
[2020-06-02] MEDS: DILAUDID 2 MG INJECTION IV PRN ×2 (18:55→23:11)
[2020-06-02] MEDS ORDERED: Neurontin 400 MG PO SCH (21:15)
[2020-06-02] MEDS: Toprol Xl 50 MG PO SCH (21:24)
[2020-06-03] MEDS: Lactated Ringers 1,000 ML IV SCH ×3 (02:09→18:11)
[2020-06-03] MEDS: DILAUDID 2 MG INJECTION IV PRN ×4 (03:43→20:46)
[2020-06-03] MEDS: Phenergan 25 MG INJ IV PRN ×3 (05:03→22:46)
[2020-06-03] MEDS ORDERED: DILAUDID 2 MG INJECTION IV STA (05:17)
[2020-06-03] MEDS ORDERED: Neurontin 400 MG PO PRN (07:15)
--- NOTE | 2020-06-03 08:33 | PCM.HP ---
History of Present Illness - Chief Complaint Chief Complaint: ABD PAIN History of Present Illness: is a 39 year old female of mine from [facility] with hx C. diff, anxiety, and chronic pain who was admitted directly with abd pain. She had several days of pain, saw Isha Reaves on Saturday (4d ago) and had labs done. Yesterday pt was sent to outpatient infusion for fluids; was found to have HR about 110 bpm and continued abdominal pain and "clamminess" so was directly admitted by me. I saw the patient briefly last night, palpated her abdomen which was soft and mildly ttp without guarding or rebound. Pain is RUQ, at times down to 5/10 but at times she is crying due to pain, Pain radiates to LUQ and to her lower back. Had 5-6 episodes diarrhea yesterday, but no diarrhea since admission. She has been NPO all night. Her WBC were neg, electrolytes wnl, and KUB neg. Early this morning I was called as her pain was bad and she seemed to have decreased urine output - I increased her dilaudid and ordered post void residual bladder scan this morning. - Review of Systems Constitutional: Fatigue, Night Sweats Abdominal/Gastrointestinal: Abdominal Pain, Nausea, Diarrhea Genitourinary Symptoms: Urinary Retention All Other Systems: Reviewed and Negative Medications & Allergies Home Medications: Home Medication List Cyanocobalamin 1000 Mcg/ml [Cyanocobalamin B-12 1000 MCG/ML] 1,000 mcg IM UD 12/20/14 [History Confirmed 06/02/20] Methocarbamol 500 mg [Robaxin 500 MG] 500 mg PO QID PRN 06/02/17 [History Confirmed 06/02/20] Gabapentin 400 mg PO TID PRN 07/31/17 [History Confirmed 06/02/20] Methylphenidate HCl [Ritalin] 20 mg PO UD 08/29/18 [History Confirmed 06/02/20] Ergocalciferol (Vitamin D2) [Vitamin D] 50,000 unit PO WEEKLY 10/13/19 [History Confirmed 06/02/20] Furosemide 20 mg [Lasix 20 mg] 20 mg PO DAILY 06/02/20 [History Confirmed 06/02/20] Metoprolol Succinate 50 mg [Toprol Xl 50 MG] 50 mg PO BID 06/02/20 [History Confirmed 06/02/20] Potassium Chloride 10 Meq Tab* [Klor Con 10 MEQ] 20 meq PO DAILY 06/02/20 [History Confirmed 06/02/20] Allergies/Adverse Reactions: Allergies Allergy/AdvReac Type Severity Reaction Status Date / Time midazolam HCl [From Versed] Allergy Severe Swelling Verified 06/02/20 15:54 of Tongue and Lips clindamycin Allergy Intermediate Stomach Verified 06/02/20 15:54 swelling sulfamethoxazole Allergy Mild Rash Verified 06/02/20 15:54 [From Bactrim] trimethoprim [From Bactrim] Allergy Mild Rash Verified 06/02/20 15:54 morphine AdvReac Mild "makes me Verified 06/02/20 15:54 mean" - Past Medical History Past Medical History: Yes Neurological History: Migraines ENT History: No Pertinent History Cardiac History: No Pertinent History Respiratory History: No Pertinent History Endocrine Medical History: No Pertinent History Musculoskelatal History: Other GI Medical History: Gallbladder Disease, Other History: Other Pyscho-Social History: Anxiety, Other Reproductive Disorders: Fibroids Comment: R CUBITAL AND CARPAL TUNNEL RELEASE 2008; R HIP SURGERIES D/T IMPINGEMENT. ADHD. c-diff infection/fecal transplant. TMJ, attention deficit disorder. - Female History Hx Last Menstrual Period: hysterectomy Are you now?: (NA) - Past Surgical History Past Surgical History: Yes Neuro Surgical History: No Pertinent History Cardiac History: No Pertinent History Respiratory Surgery: No Pertinent History GI Surgical History: Cholecystectomy Genitourinary Surgical Hx: No Pertinent History Musculskeletal Surgical Hx: Orthopedic Surgery Female Surgical History: Section, Hysterectomy, Other Other Surgical History: hysterectomy, right carpletunnel, right cubital tunnel, breast reduction, right hip surgx3 . right knee scope, .L breast lumpectomy, two fecal transplants r/t c-diff - Social History Smoking Status: Current every day smoker How long have you smoked: 24 yrs Exposure to second hand smoke: No Alcohol: None Drug Use: none - Physical Exam Vital Signs: Vital Signs - 24 hr Temp Pulse Resp BP Pulse Ox 06/03/20 07:10 98.4 F 76 16 97/77 94 L 06/03/20 07:00 94 L 06/03/20 03:52 98.0 F 73 20 101/54 95 06/02/20 23:35 98.5 F 83 22 127/69 95 06/02/20 19:37 99.1 F 98 H 21 138/91 96 06/02/20 19:10 94 L 06/02/20 16:55 99.2 F 110 H 20 142/85 98 06/02/20 16:40 99.2 F 110 H 20 142/85 98 General Appearance: mild distress, alert Neurologic Exam: oriented x 3, cooperative Eye Exam: eyes nml inspection Ears, Nose, Throat Exam: moist mucous membranes Neck Exam: normal inspection, non-tender, No lymphadenopathy Respiratory Exam: normal breath sounds, lungs clear, No crackles/rales, No rhonchi, No wheezing Cardiovascular Exam: regular rate/rhythm, normal heart sounds, No murmur Gastrointestinal/Abdomen Exam: soft, tenderness (RUQ, mild), No normal bowel sounds (hypoactive but present), No distention, No mass, No guarding, No rebound Back Exam: normal inspection, No CVA tenderness, No rash Extremity Exam: normal inspection, No pedal edema, No swelling Skin Exam: normal color, warm, dry, No rash Results - Labs Lab/Micro Results: Lab Results-Last 24 Hours 06/02/20 06/02/20 06/02/20 Range/Units 17:15 17:15 17:20 WBC 10.3 (4.0-10.5) K/mm3 RBC 4.74 (4.1-5.4) M/mm3 Hgb 14.4 (12.0-16.0) gm/dl Hct 43.9 (35-47) % MCV 92.6 (78-100) fl MCH 30.4 (26-32) pg MCHC 32.8 (32-36) g/dl RDW 12.9 (11.5-14.0) % Plt Count 288 (150-450) K/mm3 MPV 10.6 (7.5-11.0) fl Gran % 64.4 (36.0-66.0) % Eos # (Auto) 0.20 (0-0.5) Absolute Lymphs (auto) 2.76 (1.0-4.6) Absolute Monos (auto) 0.70 (0.0-1.3) Lymphocytes % 26.7 (24.0-44.0) % Monocytes % 6.8 (0.0-12.0) % Eosinophils % 1.9 (0.00-5.0) % Basophils % 0.2 (0.0-0.4) % Absolute Granulocytes 6.65 (1.4-6.9) Basophils # 0.02 (0-0.4) Sodium 137 (137-145) mmol/L Potassium 4.1 (3.5-5.1) mmol/L Chloride 101 (98-107) mmol/L Carbon Dioxide 27 (22-30) mmol/L Anion Gap 12.7 (5-15) MEQ/L BUN 11 (7-17) mg/dL Creatinine 0.75 (0.52-1.04) mg/dL Estimated GFR > 60.0 ML/MIN Glucose 120 H (74-106) mg/dL Lactic Acid 1.8 (0.4-2.0) Calcium 9.7 (8.4-10.2) mg/dL Magnesium 1.9 (1.6-2.3) mg/dL Total Bilirubin 0.30 (0.2-1.3) mg/dL AST 23 (14-36) U/L ALT 71 H (0-35) U/L Alkaline Phosphatase 79 (38-126) U/L Serum Total Protein 7.8 (6.3-8.2) g/dL Albumin 4.6 (3.5-5.0) g/dL Amylase 59 (30-110) U/L Lipase 34 (23-300) U/L Urine Color (YELLOW) Urine Appearance (CLEAR) Urine pH (5-6) Ur Specific [place] (1.005-1.025) Urine Protein (Negative) Urine Ketones (NEGATIVE) Urine Blood (0-5) Chao/ul Urine Nitrite (NEGATIVE) Urine Bilirubin (NEGATIVE) Urine Urobilinogen (0-1) mg/dL Ur Leukocyte Esterase (NEGATIVE) Urine WBC (Auto) (0-5) /HPF Urine RBC (Auto) (0-2) /HPF U Epithel Cells (Auto) (FEW) /HPF Urine Bacteria (Auto) (NEGATIVE) /HPF Urine Mucus (Auto) (NEGATIVE) /HPF Urine Culture Reflexed (NO) Urine Glucose (NEGATIVE) mg/dL 06/02/20 Range/Units 18:28 WBC (4.0-10.5) K/mm3 RBC (4.1-5.4) M/mm3 Hgb (12.0-16.0) gm/dl Hct (35-47) % MCV (78-100) fl MCH (26-32) pg MCHC (32-36) g/dl RDW (11.5-14.0) % Plt Count (150-450) K/mm3 MPV (7.5-11.0) fl Gran % (36.0-66.0) % Eos # (Auto) (0-0.5) Absolute Lymphs (auto) (1.0-4.6) Absolute Monos (auto) (0.0-1.3) Lymphocytes % (24.0-44.0) % Monocytes % (0.0-12.0) % Eosinophils % (0.00-5.0) % Basophils % (0.0-0.4) % Absolute Granulocytes (1.4-6.9) Basophils # (0-0.4) Sodium (137-145) mmol/L Potassium (3.5-5.1) mmol/L Chloride (98-107) mmol/L Carbon Dioxide (22-30) mmol/L Anion Gap (5-15) MEQ/L BUN (7-17) mg/dL Creatinine (0.52-1.04) mg/dL Estimated GFR ML/MIN Glucose (74-106) mg/dL Lactic Acid (0.4-2.0) Calcium (8.4-10.2) mg/dL Magnesium (1.6-2.3) mg/dL Total Bilirubin (0.2-1.3) mg/dL AST (14-36) U/L ALT (0-35) U/L Alkaline Phosphatase (38-126) U/L Serum Total Protein (6.3-8.2) g/dL Albumin (3.5-5.0) g/dL Amylase (30-110) U/L Lipase (23-300) U/L Urine Color YELLOW (YELLOW) Urine Appearance CLEAR (CLEAR) Urine pH 6.0 (5-6) Ur Specific [place] 1.011 (1.005-1.025) Urine Protein NEGATIVE (Negative) Urine Ketones NEGATIVE (NEGATIVE) Urine Blood NEGATIVE (0-5) Chao/ul Urine Nitrite NEGATIVE (NEGATIVE) Urine Bilirubin NEGATIVE (NEGATIVE) Urine Urobilinogen NEGATIVE (0-1) mg/dL Ur Leukocyte Esterase NEGATIVE (NEGATIVE) Urine WBC (Auto) NONE (0-5) /HPF Urine RBC (Auto) NONE (0-2) /HPF U Epithel Cells (Auto) NONE (FEW) /HPF Urine Bacteria (Auto) NONE SEEN (NEGATIVE) /HPF Urine Mucus (Auto) SLIGHT (NEGATIVE) /HPF Urine Culture Reflexed NO (NO) Urine Glucose NEGATIVE (NEGATIVE) mg/dL - Radiology Impressions Radiology Exams & Impressions: Radiology Procedures Category Date Time Status KUB Routine Exams 06/02/20 18:05 Taken Ultrasound Bladder [BLADDER] [US] Urgent Exams 06/03/20 08:00 Ordered Assessment/Plan (1) Diarrhea Current Visit: Yes Status: Acute Qualifiers: Diarrhea type: unspecified type Qualified Code(s): R19.7 - Diarrhea, unspecified Assessment & Plan: GI pathogen panel ordered. If CT neg, will start CLD and I expect she may resume some diarrhea after that. Code(s): R19.7 - DIARRHEA, UNSPECIFIED (2) Abdominal pain Current Visit: No Status: Acute Qualifiers: Abdominal location: right upper quadrant Qualified Code(s): R10.11 - Right upper quadrant pain Assessment & Plan: CT to r/o appendicitis (less likely with normal WBC count), colitis (again, less likely), renal stone. Code(s): R10.9 - UNSPECIFIED ABDOMINAL PAIN
--- NOTE | 2020-06-03 08:36 | XRAY ---
Indication: Abdomen pain, nausea, vomiting, sweats, and chills. Comparison: September 19, 2018. KUB remains nonacute and nonobstructed again with pelvic phleboliths and cholecystectomy clips. Solid organs and osseous structures unremarkable. Impression: Negative KUB.
[2020-06-03] MEDS ORDERED: Robaxin 500 MG PO PRN (10:29)
--- NOTE | 2020-06-03 10:48 | XRAY ---
Indication: Urine retention. Two-dimensional ultrasound of the urinary bladder performed. Comparison: None Urinary bladder minimally distended with prevoid volume 40 cc. Post void volume is 14 cc. No focal bladder mass or wall thickening. Normal left ureteral jet. Right ureteral jet not seen within the allotted exam time. Impression: Urinary bladder sonogram demonstrates very minimal post void residual.
[2020-06-03] MEDS: Toprol Xl 50 MG PO SCH ×2 (11:06→23:39)
--- NOTE | 2020-06-03 11:28 | XRAY ---
Indication: Back and right abdomen pain. Multiple contiguous axial images obtained through the abdomen and pelvis prior to and following 80 cc Isovue 370 contrast as ordered. Comparison: March 17, 2019. Lung bases demonstrates new mild bibasilar subsegmental atelectasis/scarring. No infiltrate or effusion. Heart is not enlarged. Noncontrasted images are negative for pathologic visceral calcifications/calculi. Noncontrasted stomach and bowel loops appear nonobstructed. Normal air-filled appendix. Stable cholecystectomy and hysterectomy. No free fluid/air. Postcontrast images demonstrates normal visceral enhancement and renal excretion. Stable 1 cm right lobe hepatic cyst and 1 cm right upper renal cyst. Remaining liver, pancreas, spleen, adrenal glands, kidneys, ureters, and bladder appear unremarkable. Minimal aortic calcifications. No AAA or pathologic retroperitoneal lymphadenopathy. Osseous structures intact. Impression: 1. Again negative for pathologic visceral calcifications/calculi. 2. Stable hepatic cyst and right renal cyst. 3. Remaining CT abdomen/pelvis with and without contrast exam is negative.
[2020-06-03] MEDS ORDERED: TORAdol 30 mg Injection IV ONE (11:36)
[2020-06-03] MEDS ORDERED: Lidoderm Patch 5% TOP SCH (13:00)
[2020-06-03 14:31] LABS: INFLUENZA A NEGATIVE (NEGATIVE); INFLUENZA B NEGATIVE (NEGATIVE); RESPIRATORY SYNCTIAL VIRUS NEGATIVE (Negative)
[2020-06-03 14:59] LABS: Adenovirus F 40/41 NEGATIVE (NEGATIVE); Astrovirus NEGATIVE (NEGATIVE); C. Difficile Organism NEGATIVE (NEGATIVE); Campylobacter NEGATIVE (NEGATIVE); Cryptosporidium NEGATIVE (NEGATIVE); Cyclospora cayentanensis NEGATIVE (NEGATIVE); Entamoeaba histolytica NEGATIVE (NEGATIVE); Enteroaggregative E.coli NEGATIVE (NEGATIVE); Enteropathogenic E.coli NEGATIVE (NEGATIVE); Enterotoxigenic E.coli NEGATIVE (NEGATIVE); Giardia lamblia NEGATIVE (NEGATIVE); Norovirus GI/GII NEGATIVE (NEGATIVE); Plesiomonas shigelloides NEGATIVE (NEGATIVE); Rotavirus A NEGATIVE (NEGATIVE); Salmonella NEGATIVE (NEGATIVE); Sapovirus NEGATIVE (NEGATIVE); Shiga-like toxin prod.E.coli NEGATIVE (NEGATIVE); Vibrio NEGATIVE (NEGATIVE); Vibrio cholerae NEGATIVE (NEGATIVE); Yersinia enterocolitica NEGATIVE (NEGATIVE)
[2020-06-03] MEDS ORDERED: Lasix 40 MG/4 ML IV ONE (15:38)
[2020-06-03] MEDS ORDERED: solu-MEDROL 125 MG IV ONE (15:41)
[2020-06-03] MEDS: Zofran 4 MG/2 ML VIAL IV PRN (20:47)
[2020-06-04] MEDS ORDERED: Lactated Ringers 1,000 ML IV SCH (01:00)
[2020-06-04] MEDS: DILAUDID 2 MG INJECTION IV PRN (03:49)
[2020-06-04] MEDS: Zofran 4 MG/2 ML VIAL IV PRN ×2 (03:49→08:36)
[2020-06-04 07:06] VITALS: BP 95/53; PULSE 81
[2020-06-04 07:36] VITALS: O2SAT 90
--- NOTE | 2020-06-04 08:05 | PCM.DS ---
Discharge Summary Date of Admission: 06/02/20 16:32 Admitting Physician: SOMMER FERRELL Primary Care Provider: EMILY KISER Allergies Allergies midazolam HCl [From Versed] Allergy (Severe, Verified 06/02/20 15:54) Swelling of Tongue and Lips clindamycin Allergy (Intermediate, Verified 06/02/20 15:54) Stomach swelling sulfamethoxazole [From Bactrim] Allergy (Mild, Verified 06/02/20 15:54) Rash trimethoprim [From Bactrim] Allergy (Mild, Verified 06/02/20 15:54) Rash morphine Adverse Reaction (Mild, Verified 06/02/20 15:54) "makes me mean" pt states it makes her mean Hospital Summary - Hospital Course Hospital Course: patient was admitted with abdominal pain and diarrhea, no fever, nausea but no vomiting. pain diffuse, testing was negative - Vitals & Intake/Output Vital Signs: Vital Signs Temperature 98.2 F 06/04/20 04:00 Pulse Rate 81 06/04/20 07:05 Respiratory Rate 20 06/04/20 07:05 Blood Pressure 95/53 06/04/20 07:05 O2 Sat by Pulse Oximetry 90 L 06/04/20 07:36 Intake & Output: Intake & Output 06/01/20 06/02/20 06/03/20 06/04/20 11:59 11:59 11:59 11:59 Intake Total 30 5773 Output Total 1985 2300 Balance -1954 3473 Weight 89.3 kg - Lab Result Diagrams: 06/02/20 17:15 06/02/20 17:15 Lab Results-Last 24 Hrs: Lab Results-Last 24 Hours 06/03/20 06/03/20 06/03/20 Range/Units 12:20 13:08 Unknown Stl C. cayetanensis PCR NEGATIVE (NEGATIVE) Stl Adenov F 40/41 PCR NEGATIVE (NEGATIVE) Stool Astrovirus (PCR) NEGATIVE (NEGATIVE) Stool Cryptosporidium PCR NEGATIVE (NEGATIVE) Stool EPEC (PCR) NEGATIVE (NEGATIVE) Stool EAEC (PCR) NEGATIVE (NEGATIVE) Stl E. histolytica PCR NEGATIVE (NEGATIVE) Stl P. shigelloides PCR NEGATIVE (NEGATIVE) Stool Sapovirus (PCR) NEGATIVE (NEGATIVE) St Y.enterocolitica PCR NEGATIVE (NEGATIVE) Stool Vibrio (PCR) NEGATIVE (NEGATIVE) Stl Vibrio cholerae PCR NEGATIVE (NEGATIVE) Stl Norovirus GI/GII PCR NEGATIVE (NEGATIVE) Campylobacter (PCR) NEGATIVE (NEGATIVE) C. difficile (PCR) NEGATIVE (NEGATIVE) Enterotoxigenic E. coli NEGATIVE (NEGATIVE) E.coli Shiga Toxins NEGATIVE (NEGATIVE) Giardia lamblia NEGATIVE (NEGATIVE) Influenza Type A Ag NEGATIVE (NEGATIVE) Influenza Type B Ag NEGATIVE (NEGATIVE) RSV (PCR) NEGATIVE (Negative) Rotavirus A (PCR) NEGATIVE (NEGATIVE) Salmonella (PCR) NEGATIVE (NEGATIVE) SARS-CoV-2 (PCR) NEGATIVE (NEGATIVE) Shigella (PCR) NEGATIVE (NEGATIVE) - Radiology Exams Ordered Rad Exams-Entire Visit: Radiology Procedures Category Date Time Status ABDOMEN AND PELVIS W&WO CONTRA [CT] Routine Exams 06/03/20 08:28 Completed KUB Routine Exams 06/02/20 18:05 Completed Ultrasound Bladder [BLADDER] [US] Urgent Exams 06/03/20 08:00 Completed - Procedures and Test Procedures and Tests throughout Hospitalization: Therapy Orders & Screens 06/02/20 17:27 Smoking Cessation Education ONCE Comment: Diagnosis: ABD PAIN Smoking Status: Current every day smoker How long have you smoked: 24 yrs Have you smoked in the past 12 months: Yes Approximately how many cigarettes per day: 1 pack per day Do you dip or chew tobacco: No Discharge Exam General Appearance: no apparent distress, alert Respiratory Exam: normal breath sounds, lungs clear, No respiratory distress Cardiovascular Exam: regular rate/rhythm, normal heart sounds Gastrointestinal/Abdomen Exam: soft, No tenderness, No mass Extremity Exam: normal inspection, normal range of motion Final Diagnosis/Problem List - Final Discharge Diagnosis/Problem (1) Diarrhea Current Visit: Yes Status: Acute Code(s): R19.7 - DIARRHEA, UNSPECIFIED (2) Abdominal pain Current Visit: No Status: Acute Code(s): R10.9 - UNSPECIFIED ABDOMINAL PAIN - Discharge Disposition: Home, Self-Care Condition: Stable Prescriptions: New Methylprednisolone Packet [Medrol Dosepack] 4 mg PO UD #30 packet Continue Cyanocobalamin 1000 Mcg/ml [Cyanocobalamin B-12 1000 MCG/ML] 1,000 mcg IM UD Methocarbamol 500 mg [Robaxin 500 MG] 500 mg PO QID PRN PRN Reason: Pain Gabapentin 400 mg PO TID PRN PRN Reason: Pain Methylphenidate HCl [Ritalin] 20 mg PO UD Ergocalciferol (Vitamin D2) [Vitamin D] 50,000 unit PO WEEKLY Potassium Chloride 10 Meq Tab* [Klor Con 10 MEQ] 20 meq PO DAILY Metoprolol Succinate 50 mg [Toprol Xl 50 MG] 50 mg PO BID Discontinued Furosemide 20 mg [Lasix 20 mg] 20 mg PO DAILY Follow up with: EMILY KISER [Primary Care Provider] - 1 Week
== END 2020-06-04 08:58 | disposition home or self-care (01) ==
LOC: MED SURG 16:32
PROVIDERS: ADMIT Family Medicine; ATTEND Family Medicine
DX: R19.7 Diarrhea, unspecified (principal); R10.9 Unspecified abdominal pain; R53.83 Other fatigue; R33.9 Retention of urine, unspecified; R11.0 Nausea; Z79.899 Other long term (current) drug therapy; Z11.59 Encounter for screening for other viral diseases; Z86.19 Personal history of other infectious and parasitic diseases
CPT/HCPCS: 36415; 74018; 74178; 76705; 80053; 81001; 82150; 83605; 83690; 83735; 85025; 87507; 87631; 93268; 94762; G0378; U0003; J1170; J1885; J1940; J2270; J2405; J2550; J2930; A9270-GY

== ENCOUNTER 2024-04-02 08:55 | Emergency (ER) | payer OTHER ==
[2024-04-02] MEDS ORDERED: TORAdol 30 mg Injection ONE (09:16)
[2024-04-02] MEDS ORDERED: Sodium Chloride 0.9% 1000 ML 1,000 ML ONE (09:16)
[2024-04-02 09:17] VITALS: TEMP 98.7
[2024-04-02] MEDS: Sodium Chloride 0.9% 1000 ML 1,000 ML IV STA (09:17)
[2024-04-02] MEDS: TORAdol 30 mg Injection IV ONE (09:17)
[2024-04-02 09:25] LABS: Absolute Neutrophil Ct (ANC) 9.93 x10^3/uL (1.56-6.13); BASOPHIL % 0.2 % (0.1-1.2); Basophil (Absolute #) 0.03 x10^3/uL (0.01-0.08); Eosinophil % 0.7 % (0.7-5.8); Eosinophil (Absolute #) 0.11 x10^3/uL (0.04-0.36); Hemoglobin 14.4 g/dL (11.2-15.7); IMMATURE GRAN # 0.07 x10^3u/L (0.001-0.031); IMMATURE GRAN % 0.5 % (0.001-0.429); Lymphocyte (Absolute #) 4.05 x10^3/uL (1.18-3.74); Lymphocytes % 26.7 % (19.3-51.7); Mean Cell Volume 90.7 fL (79.4-94.8); Mean Corpuscular Hemoglobin 29.7 pg (25.6-32.2); Mean Corpuscular Hgb Concent. 32.7 g/dL (32.2-35.5); Mean Platelet Volume 10.6 fL (9.4-12.3); Monocyte (Absolute #) 0.96 x10^3/uL (0.24-0.86); Monocytes % 6.3 % (4.7-12.5); Neutrophil % 65.6 % (34.0-71.1); Platelet Count 292 x10^3/uL (182-369); Red Blood Count 4.85 x10^6/uL (3.93-5.22); Red Cell Distribution Width 12.7 % (11.7-14.4); White Blood Count 15.2 x10^3/uL (3.98-10.04)
[2024-04-02 09:33] LABS: Appearance Clear (Clear); Bacteria None Seen /HPF (None Seen); Bilirubin Negative (Negative); Blood Negative (Negative); Epithelial Cells Few /HPF (None Seen); Glucose, Urine Negative (Negative); Hyaline Casts NONE SEEN /LPF (0-2); Ketones Negative (Negative); Leukocyte Esterase Negative (Negative); Nitrite Negative (Negative); Protein,Urine Dip Trace (Negative); RBC 0-2 /HPF (0-5); Specific Gravity 1.025 (1.005-1.030); WBC 0-2 /HPF (0-5)
[2024-04-02 09:35] LABS: ADD URINE CULTURE? NO (NO)
[2024-04-02 09:39] LABS: ALBUMIN 4.2 g/dL (3.5-5.0); ANION GAP 14.3 MEQ/L (5-15); BILIRUBIN,TOTAL 0.5 mg/dL (0.2-1.3); Calcium 9.1 mg/dL (8.4-10.2); Creatinine 1 0.85 mg/dL (0.52-1.04); EST GLOMERULAR FILTRATION RATE 86.6 ML/MIN; Potassium 3.6 mmol/L (3.5-5.1); Total Protein 7.4 g/dL (6.3-8.2)
[2024-04-02 09:49] VITALS: PULSE 78
--- NOTE | 2024-04-02 10:21 | XRAY ---
Indication: Right flank pain. History kidney stones. Multiple contiguous axial images obtained through the abdomen and pelvis without contrast using renal stone protocol. Comparison: January 15, 2023 Lung bases remain clear. Heart not enlarged. Again no renal calculus or evidence for obstructive uropathy in either system. Noncontrasted stomach and bowel loops appear nonobstructed again with normal appendix. Again mild fecal debris predominantly in the ascending and transverse colon. Again small right lobe hepatic cyst, small right renal cyst, cholecystotomy, and hysterectomy. No free fluid/air. Remaining liver, pancreas, spleen, adrenal glands, kidneys, ureters, and bladder are unremarkable for noncontrast exam. There remains minimal aortic calcifications without AAA. Osseous structures intact. Impression: 1. Continued negative for renal calculus or evidence for obstructive uropathy. 2. Incidental fecal load right hemicolon. 3. Again chronic findings including hepatic cyst, right renal cyst, and minimal arteriosclerotic disease.
[2024-04-02] MEDS ORDERED: Zofran 4 MG/2 ML VIAL ONE (11:59)
[2024-04-02] MEDS ORDERED: MORPHINE SULFATE 4 MG INJ ONE (12:00)
[2024-04-02] MEDS: Zofran 4 MG/2 ML VIAL IV ONE (12:03)
[2024-04-02] MEDS: MORPHINE SULFATE 4 MG INJ IV ONE (12:03)
[2024-04-02 12:07] VITALS: BP 107/67; RESP 25
[2024-04-02 12:08] VITALS: O2SAT 100
--- NOTE | 2024-04-02 12:08 | ERPHSYRPT ---
- History of Present Illness Time Seen by Provider: 04/02/24 10:25 Historian: patient Exam Limitations: no limitations Patient Subjective Stated Complaint: C/O right sided mid back pain and left abdominal pain X approx 3 weeks. C/O dysruia. Triage Nursing Assessment: Patient ambulated back to ER. She is alert and oriented; tearful. S/S of pain present. BARBOSA WNL. Patient denies falls, trauma, injuries. Skin tone normal. Physician History: 43 years old presented in the ER from primary care office with complains of righ t flank pain, nausea, UTI symptoms. Patient was evaluated yesterday and has been started on Cipro for increased urinary frequency, dysuria. Patient still reports having moderate intensity pain right flank with no significant aggravating or relieving factors. Denies any urgency or hesitancy of urine. No hematuria. Does have history of kidney stones. Allergies/Adverse Reactions: midazolam HCl [From Versed] Allergy (Severe, Verified 04/02/24 09:00) Swelling of Tongue and Lips clindamycin Allergy (Intermediate, Verified 04/02/24 09:00) Stomach swelling sulfamethoxazole [From Bactrim] Allergy (Mild, Verified 04/02/24 09:00) Rash trimethoprim [From Bactrim] Allergy (Mild, Verified 04/02/24 09:00) Rash morphine Adverse Reaction (Mild, Verified 04/02/24 09:00) "makes me mean" pt states it makes her mean Home Medications: Cyanocobalamin 1000 Mcg/ml [Cyanocobalamin B-12 1000 MCG/ML] 1,000 mcg IM UD 12/20/14 [History] Methocarbamol [Robaxin] 500 mg PO QID PRN 06/02/17 [History] Gabapentin 400 mg PO TID PRN 07/31/17 [History] Methylphenidate HCl [Ritalin] 20 mg PO UD 08/29/18 [History] Ergocalciferol (Vitamin D2) [Vitamin D] 50,000 unit PO WEEKLY 10/13/19 [History] Metoprolol Succinate 50 mg [Toprol Xl 50 MG] 50 mg PO BID 06/02/20 [History] Topiramate 25 mg [Topamax 25 MG] 50 mg PO DAILY 08/20/23 [History] Ciprofloxacin [Cipro 500 MG] 500 mg PO BID 04/02/24 [History] lisinopriL [Zestril] 2.5 mg PO DAILY 04/02/24 [History] Hx Tetanus, Diphtheria Vaccination/Date Given: Yes Hx Influenza Vaccination/Date Given: Yes Hx Pneumococcal Vaccination/Date Given: No Immunizations Up to Date: Yes Travel Risk - International Travel Have you traveled outside of the country in past 3 weeks: No - Emerging Infectious Disease Are you exhibiting symptoms associated with any current EIDs: No - Review of Systems Constitutional: No Symptoms Ears, Nose, & Throat: No Symptoms Respiratory: No Symptoms Cardiac: No Symptoms Abdominal/Gastrointestinal: Abdominal Pain, Nausea Genitourinary Symptoms: Dysuria, Flank Pain Musculoskeletal: No Symptoms Neurological: No Symptoms Psychological: No Symptoms Endocrine: No Symptoms Hematologic/Lymphatic: No Symptoms - Past Medical History Pertinent Past Medical History: Yes Neurological History: Migraines ENT History: No Pertinent History Cardiac History: No Pertinent History Respiratory History: No Pertinent History Endocrine Medical History: No Pertinent History Musculoskeletal History: Other GI Medical History: Gallbladder Disease, Other History: Other Psycho-Social History: Anxiety, Attention Deficit Disorder, Other Female Reproductive Disorders: Fibroids Other Medical History: c-diff infection/fecal transplant. TMJ - Past Surgical History Past Surgical History: Yes Neuro Surgical History: No Pertinent History Cardiac: No Pertinent History Respiratory: No Pertinent History Gastrointestinal: Cholecystectomy Genitourinary: No Pertinent History Musculoskeletal: Orthopedic Surgery Female Surgical History: Section, Hysterectomy, Other Other Surgical History: right carpletunnel, breast reduction, right hip surgx3 . right knee scope, L breast lumpectomy, two fecal transplants r/t c-diff - Female History Hx Now: No - Social History Smoking Status: Current every day smoker How long have you smoked: 30 years Exposure to second hand smoke: No Drug Use: none Patient Lives Alone: No - Social Determinants of Health Will the patient participate in the screening: Yes Do you worry about a steady place to live?: No Do you have any problems with any of the following?: No known problems In the past 12 months,have you had to go without utilities?: No Transportation Issues: No Has anyone in your support network made you feel unsafe?: No Have you or anyone in your house had to go without enough: No - Nursing Vital Signs Nursing Vital Signs: Initial Vital Signs Temperature 98.7 F 04/02/24 08:55 Pulse Rate 90 04/02/24 08:55 Respiratory Rate 18 04/02/24 08:55 Blood Pressure 117/89 04/02/24 08:55 O2 Sat by Pulse Oximetry 91 L 04/02/24 08:55 Pain Scale Pain Intensity 4 - Physical Exam General Appearance: no apparent distress, anxiety Eye Exam: PERRL/EOMI Ears, Nose, Throat Exam: normal ENT inspection Neck Exam: normal inspection, non-tender, supple, full range of motion Respiratory Exam: normal breath sounds, lungs clear Cardiovascular Exam: regular rate/rhythm, normal heart sounds Gastrointestinal/Abdomen Exam: soft, normal bowel sounds, tenderness (Right flank with bimanual palpation) Back Exam: normal inspection, normal range of motion, CVA tenderness (Right side) Extremity Exam: normal inspection, normal range of motion Neurologic Exam: alert, oriented x 3, cooperative Skin Exam: normal color SpO2 Interpretation: normal SpO2: 100 O2 Delivery: Room Air Ordered Tests: Active Orders 24 hr Category Date Time Status IV Insertion STAT Care 04/02/24 09:13 Active ABDOMEN AND PELVIS W/0 CONTRAS [CT] Stat Exams 04/02/24 09:15 Completed CBC W DIFF Stat Lab 04/02/24 09:25 Completed CMP Stat Lab 04/02/24 09:25 Completed Lactic Acid Stat Lab 04/02/24 09:24 Completed UA W/RFX UR CULTURE Stat Lab 04/02/24 09:17 Completed Medication Summary Discontinued Medications Generic Name Dose Route Start Last Admin Trade Name Nate PRN Reason Stop Dose Admin Sodium Chloride 1,000 mls @ 999 mls/hr 04/02/24 09:14 04/02/24 10:19 Sodium Chloride 0.9% 1000 Ml IV 04/02/24 10:14 Infused .Q1H1M STA Infusion Sodium Chloride Confirm 04/02/24 09:16 Sodium Chloride 0.9% 1000 Ml Administered 04/02/24 09:17 Dose 1,000 mls @ ud .ROUTE .STK-MED ONE Ketorolac Tromethamine 30 mg 04/02/24 09:14 04/02/24 09:17 Ketorolac Tromethamine 30 Mg/Ml Inj IV 04/02/24 09:15 30 mg STAT ONE Administration Ketorolac Tromethamine Confirm 04/02/24 09:16 Ketorolac Tromethamine 30 Mg/Ml Inj Administered 04/02/24 09:17 Dose 30 mg .ROUTE .STK-MED ONE Morphine Sulfate 4 mg 04/02/24 11:42 Morphine Sulfate 4 Mg/Ml Injection IV 04/02/24 11:43 STAT ONE Morphine Sulfate Confirm 04/02/24 12:00 Morphine Sulfate 4 Mg/Ml Injection Administered 04/02/24 12:01 Dose 4 mg .ROUTE .STK-MED ONE Ondansetron HCl 4 mg 04/02/24 11:42 Ondansetron Hcl 4 Mg/2 Ml Vial IV 04/02/24 11:43 STAT ONE Ondansetron HCl Confirm 04/02/24 11:59 Ondansetron Hcl 4 Mg/2 Ml Vial Administered 04/02/24 12:00 Dose 4 mg .ROUTE .STK-MED ONE Lab/Rad Data: Laboratory Result Diagrams 04/02/24 09:25 04/02/24 09:25 Laboratory Results 04/02/24 04/02/24 04/02/24 Range/Units 09:25 09:25 09:24 WBC 15.2 H (3.98-10.04) x10^3/uL RBC 4.85 (3.93-5.22) x10^6/uL Hgb 14.4 (11.2-15.7) g/dL Hct 44.0 (34.1-44.9) % MCV 90.7 (79.4-94.8) fL MCH 29.7 (25.6-32.2) pg MCHC 32.7 (32.2-35.5) g/dL RDW 12.7 (11.7-14.4) % Plt Count 292 (182-369) x10^3/uL MPV 10.6 (9.4-12.3) fL Gran % 65.6 (34.0-71.1) % Immature Gran % (Auto) 0.5 H (0.001-0.429) % Nucleat RBC Rel Count 0.0 (0.00-0.2) % Eos # (Auto) 0.11 (0.04-0.36) x10^3/uL Immature Gran # (Auto) 0.07 H (0.001-0.031) x10^3u/L Absolute Lymphs (auto) 4.05 H (1.18-3.74) x10^3/uL Absolute Monos (auto) 0.96 H (0.24-0.86) x10^3/uL Absolute Nucleated RBC 0.00 (0.00-0.012) x10^3u/L Lymphocytes % 26.7 (19.3-51.7) % Monocytes % 6.3 (4.7-12.5) % Eosinophils % 0.7 (0.7-5.8) % Basophils % 0.2 (0.1-1.2) % Absolute Granulocytes 9.93 H (1.56-6.13) x10^3/uL Basophils # 0.03 (0.01-0.08) x10^3/uL Sodium 139 (135-145) mmol/L Potassium 3.6 (3.5-5.1) mmol/L Chloride 106 (98-107) mmol/L Carbon Dioxide 22 (22-30) mmol/L Anion Gap 14.3 (5-15) MEQ/L BUN 16 (7-17) mg/dL Creatinine 0.85 (0.52-1.04) mg/dL Estimated GFR 86.6 ML/MIN Glucose 111 H (74-106) mg/dL Lactic Acid 1.2 (0.4-2.0) Calcium 9.1 (8.4-10.2) mg/dL Total Bilirubin 0.50 (0.2-1.3) mg/dL AST 19 (14-36) U/L ALT 22 (0-35) U/L Alkaline Phosphatase 59 (38-126) U/L Serum Total Protein 7.4 (6.3-8.2) g/dL Albumin 4.2 (3.5-5.0) g/dL Urine Color (Yellow) Urine Appearance (Clear) Urine pH (4.6-8.0) Ur Specific [place] (1.005-1.030) Urine Protein (Negative) Urine Glucose (UA) (Negative) mg/dL Urine Ketones (Negative) Urine Blood (Negative) Urine Nitrite (Negative) Urine Bilirubin (Negative) Urine Urobilinogen (0.2) mg/dL Ur Leukocyte Esterase (Negative) U Hyaline Cast (Auto) (0-2) /LPF Urine Microscopic RBC (0-5) /HPF Urine Microscopic WBC (0-5) /HPF Ur Epithelial Cells (None Seen) /HPF Urine Bacteria (None Seen) /HPF Urine Culture Reflexed (NO) 04/02/24 Range/Units 09:17 WBC (3.98-10.04) x10^3/uL RBC (3.93-5.22) x10^6/uL Hgb (11.2-15.7) g/dL Hct (34.1-44.9) % MCV (79.4-94.8) fL MCH (25.6-32.2) pg MCHC (32.2-35.5) g/dL RDW (11.7-14.4) % Plt Count (182-369) x10^3/uL MPV (9.4-12.3) fL Gran % (34.0-71.1) % Immature Gran % (Auto) (0.001-0.429) % Nucleat RBC Rel Count (0.00-0.2) % Eos # (Auto) (0.04-0.36) x10^3/uL Immature Gran # (Auto) (0.001-0.031) x10^3u/L Absolute Lymphs (auto) (1.18-3.74) x10^3/uL Absolute Monos (auto) (0.24-0.86) x10^3/uL Absolute Nucleated RBC (0.00-0.012) x10^3u/L Lymphocytes % (19.3-51.7) % Monocytes % (4.7-12.5) % Eosinophils % (0.7-5.8) % Basophils % (0.1-1.2) % Absolute Granulocytes (1.56-6.13) x10^3/uL Basophils # (0.01-0.08) x10^3/uL Sodium (135-145) mmol/L Potassium (3.5-5.1) mmol/L Chloride (98-107) mmol/L Carbon Dioxide (22-30) mmol/L Anion Gap (5-15) MEQ/L BUN (7-17) mg/dL Creatinine (0.52-1.04) mg/dL Estimated GFR ML/MIN Glucose (74-106) mg/dL Lactic Acid (0.4-2.0) Calcium (8.4-10.2) mg/dL Total Bilirubin (0.2-1.3) mg/dL AST (14-36) U/L ALT (0-35) U/L Alkaline Phosphatase (38-126) U/L Serum Total Protein (6.3-8.2) g/dL Albumin (3.5-5.0) g/dL Urine Color Yellow (Yellow) Urine Appearance Clear (Clear) Urine pH 5.0 (4.6-8.0) Ur Specific [place] 1.025 (1.005-1.030) Urine Protein Trace A (Negative) Urine Glucose (UA) Negative (Negative) mg/dL Urine Ketones Negative (Negative) Urine Blood Negative (Negative) Urine Nitrite Negative (Negative) Urine Bilirubin Negative (Negative) Urine Urobilinogen 1.0 A (0.2) mg/dL Ur Leukocyte Esterase Negative (Negative) U Hyaline Cast (Auto) NONE SEEN (0-2) /LPF Urine Microscopic RBC 0-2 (0-5) /HPF Urine Microscopic WBC 0-2 (0-5) /HPF Ur Epithelial Cells Few (None Seen) /HPF Urine Bacteria None Seen (None Seen) /HPF Urine Culture Reflexed NO (NO) - Progress Progress: improved Progress Note: 04/02/24 12:04 43-year-old is evaluated in the ER for right flank pain with UTI symptoms. She is given fluids and symptomatic treatment, on reevaluation she is feeling better. Workup showed white count of 15 which is improved from 18 yesterday. Has fairly unremarkable chemistries and normal lactate. Urinalysis negative here today. I have obtained CT abdomen pelvis without contrast which is negative for pyelonephritis, obstructive uropathy. Does have some element of right hemicolon moderate fecal load. Recommended stool softener and MiraLAX for it. I do not think patient is septic, no pyelonephritis, she is started on antibiotics yesterday and it seems like working. I would not change antibiotics. Do not think patient needs to be admitted. Patient can follow-up outpatient with primary care. Discussed signs symptoms of worsening needing return to ER which she seems understanding. Stable for discharge. Counseled pt/family regarding: lab results, diagnosis, need for follow-up, rad results Medical Desision Making - Diagnostic Testing Diagnostic test were ordered, analyzed, and reviewed by me: Yes Radiological Interpretation: Reviewed by me - Risk of complications The pt has a mod risk of morbidity or mortality based on: Need for prescription drug management - Departure Departure Disposition: Home Clinical Impression: Right flank pain, Constipation Condition: Stable Critical Care Time: No Referrals: EMILY KISER NP [Primary Care Provider] - Follow up with PCP 1 day Instructions: Urinary Tract Infection, Adult ED Additional Instructions: Continue with your current medications. Follow-up with primary care for reevaluation. Return to ER for any worsening of pain, intractable nausea vomiting, difficulty urination, fever chills etc.
== END 2024-04-02 12:18 | disposition home or self-care (01) ==
LOC: ED 08:55
DX: K59.00 Constipation, unspecified (principal); R10.9 Unspecified abdominal pain; R11.0 Nausea; Z79.899 Other long term (current) drug therapy; Z72.0 Tobacco use
CPT/HCPCS: 36000; 36415; 74176; 80053; 81001; 83605; 85025; 96374; 96375; 99284; J1885; J2270; J2405

== ENCOUNTER 2024-11-22 16:04 | Observation (INO) | payer OTHER ==
--- NOTE | 2024-11-22 16:32 | ERPHSYRPT ---
- History of Present Illness Source: patient Exam Limitations: no limitations Physician History: Patient's main problem is some right upper quadrant and right flank pain. She has had some chills and possibly some fever. She has been on Levaquin for a UTI. They got a UA but there was no white cells in the urine. It did grow out some Enterococcus faecalis in the culture. I do not know if that was a contaminant. She did not have any evidence in her UA of actual infection. She has had some other symptoms that have been going on for months including fatigue andVarious aches and pains. She has been evaluated this by her primary doctor. They have not found a good source yet.The symptoms now of the right upper quadrant pain are somewhat new.Started about 2 days ago.Pain has been pretty constant in its location and presentation.Nothing really makes symptoms better or worse.The patient also has some right sided weakness. Is noticeable in her face. There is some drooping on the right side of her face and she has obvious right-sided weakness in her arms and legs. The symptoms been going on for months. They have not really gotten worse today. She has some right sided abdominal pain as well 2. Of note her grandfather and her great uncle both had MS. Allergies/Adverse Reactions: midazolam HCl [From Versed] Allergy (Severe, Verified 11/22/24 16:22) Swelling of Tongue and Lips clindamycin Allergy (Intermediate, Verified 11/22/24 16:22) Stomach swelling sulfamethoxazole [From Bactrim] Allergy (Mild, Verified 11/22/24 16:22) Rash trimethoprim [From Bactrim] Allergy (Mild, Verified 11/22/24 16:22) Rash morphine Adverse Reaction (Mild, Verified 11/22/24 16:22) "makes me mean" pt states it makes her mean Home Medications: Cyanocobalamin 1000 Mcg/ml [Cyanocobalamin B-12 1000 MCG/ML] 1,000 mcg IM UD 12/20/14 [History] Methocarbamol [Robaxin] 500 mg PO QID PRN 06/02/17 [History] Gabapentin 400 mg PO TID PRN 07/31/17 [History] Methylphenidate HCl [Ritalin] 20 mg PO UD 08/29/18 [History] Ergocalciferol (Vitamin D2) [Vitamin D] 50,000 unit PO WEEKLY 10/13/19 [History] Metoprolol Succinate 50 mg [Toprol Xl 50 MG] 50 mg PO BID 06/02/20 [History] Topiramate 25 mg [Topamax 25 MG] 50 mg PO DAILY 08/20/23 [History] Ciprofloxacin [Cipro 500 MG] 500 mg PO BID 04/02/24 [History] lisinopriL [Zestril] 2.5 mg PO DAILY 04/02/24 [History] Hx Tetanus, Diphtheria Vaccination/Date Given: Yes Hx Influenza Vaccination/Date Given: Yes Hx Pneumococcal Vaccination/Date Given: No Travel Risk - Emerging Infectious Disease Are you exhibiting symptoms associated with any current EIDs: No - Review of Systems Constitutional: Chills, Malaise, Weakness Eyes: No Symptoms Ears, Nose, & Throat: Ear Pain (Right ear) Respiratory: No Symptoms Cardiac: No Symptoms Abdominal/Gastrointestinal: Abdominal Pain Genitourinary Symptoms: No Symptoms, Flank Pain (Right side) Musculoskeletal: No Symptoms Skin: No Symptoms All Other Systems: Reviewed and Negative - Past Medical History Neurological History: Peripheral Neuropathy Cardiac History: High Cholesterol, Hypertension Respiratory History: No Pertinent History Endocrine Medical History: Diabetes Type II Musculoskeletal History: Osteoarthritis Other Medical History: PSH: 3 HIP SURGERIES, BREAST REDUCTION, GALL BLADDER, HYSTERECTOMY,. PMH: SMOKING CURRENT, ANXIETY/STRESS DISORDER - Past Surgical History Past Surgical History: Yes Neuro Surgical History: No Pertinent History Cardiac: No Pertinent History Respiratory: No Pertinent History Gastrointestinal: Cholecystectomy Genitourinary: No Pertinent History Musculoskeletal: Orthopedic Surgery Female Surgical History: Section, Hysterectomy, Other Other Surgical History: right carpletunnel, breast reduction, right hip surgx3 . right knee scope, L breast lumpectomy, two fecal transplants r/t c-diff - Female History Hx Now: No - Social History Smoking Status: Current every day smoker How long have you smoked: 30 years Exposure to second hand smoke: No Drug Use: none Patient Lives Alone: No - Social Determinants of Health Will the patient participate in the screening: Yes Do you worry about a steady place to live?: No In the past 12 months,have you had to go without utilities?: No Transportation Issues: No Has anyone in your support network made you feel unsafe?: No Have you or anyone in your house had to go w/o enough food: No - Nursing Vital Signs Nursing Vital Signs: Initial Vital Signs Temperature 98.3 F 11/22/24 16:24 Pulse Rate 109 H 11/22/24 16:24 Respiratory Rate 20 11/22/24 16:24 Blood Pressure 140/88 11/22/24 16:24 O2 Sat by Pulse Oximetry 100 11/22/24 16:24 Pain Scale Pain Intensity 7 - Physical Exam General Appearance: other (Patient has some chills and is shivering.) Respiratory Exam: normal breath sounds, lungs clear, No chest tenderness Cardiovascular Exam: regular rate/rhythm, normal heart sounds Gastrointestinal/Abdomen Exam: soft, tenderness (Right upper quadrant), No distention, No mass Pelvic Exam: not done Neurologic Exam: alert, oriented x 3, cooperative, bander and cellophaner machine 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 There is also some drooping of the face on the right. Her speech is a little affected and she says at times it is difficult to chew or swallow.) Skin Exam: normal color, warm, dry - Course Nursing assessment & vital signs reviewed: Yes Ordered Tests: Active Orders 24 hr Category Date Time Status ABDOMEN AND PELVIS W/0 CONTRAS [CT] Stat Exams 11/22/24 16:[address] ANGIOGRAPHY NECK [CT] Stat Exams 11/22/24 16:44 Ordered CTA HEAD W AND/OR WO CONTRAST [CT] Stat Exams 11/22/24 17:53 Ordered HEAD WITHOUT CONTRAST [CT] Stat Exams 11/22/24 17:01 Completed BLOOD CULTURE Stat Lab 11/22/24 17:20 Received CBC W DIFF Stat Lab 11/22/24 17:10 Completed CMP Stat Lab 11/22/24 17:10 Completed LIPASE Stat Lab 11/22/24 17:10 Completed Lactic Acid Stat Lab 11/22/24 17:09 Completed UA W/RFX UR CULTURE Stat Lab 11/22/24 16:33 Completed Lab/Rad Data: Laboratory Result Diagrams 11/22/24 17:10 11/22/24 17:10 Laboratory Results 11/22/24 11/22/24 11/22/24 Range/Units 17:10 17:10 17:10 WBC 12.1 H (3.98-10.04) x10^3/uL RBC 4.81 (3.93-5.22) x10^6/uL Hgb 14.2 (11.2-15.7) g/dL Hct 43.0 (34.1-44.9) % MCV 89.4 (79.4-94.8) fL MCH 29.5 (25.6-32.2) pg MCHC 33.0 (32.2-35.5) g/dL RDW 12.7 (11.7-14.4) % Plt Count 306 (182-369) x10^3/uL MPV 10.5 (9.4-12.3) fL Gran % 63.0 (34.0-71.1) % Immature Gran % (Auto) 0.5 H (0.001-0.429) % Nucleat RBC Rel Count 0.0 (0.00-0.2) % Eos # (Auto) 0.27 (0.04-0.36) x10^3/uL Immature Gran # (Auto) 0.06 H (0.001-0.031) x10^3u/L Absolute Lymphs (auto) 3.29 (1.18-3.74) x10^3/uL Absolute Monos (auto) 0.81 (0.24-0.86) x10^3/uL Absolute Nucleated RBC 0.00 (0.00-0.012) x10^3u/L Lymphocytes % 27.3 (19.3-51.7) % Monocytes % 6.7 (4.7-12.5) % Eosinophils % 2.2 (0.7-5.8) % Basophils % 0.3 (0.1-1.2) % Absolute Granulocytes 7.59 H (1.56-6.13) x10^3/uL Basophils # 0.04 (0.01-0.08) x10^3/uL Sodium 141 (135-145) mmol/L Potassium 3.7 (3.5-5.1) mmol/L Chloride 107 (98-107) mmol/L Carbon Dioxide 20 L (22-30) mmol/L Anion Gap 17.6 H (5-15) MEQ/L BUN 10 (7-17) mg/dL Creatinine 0.83 (0.52-1.04) mg/dL Estimated GFR 88.5 ML/MIN Glucose 100 (74-106) mg/dL Lactic Acid (0.4-2.0) Calcium 9.3 (8.4-10.2) mg/dL Total Bilirubin 0.40 (0.2-1.3) mg/dL AST 21 (14-36) U/L ALT 20 (0-35) U/L Alkaline Phosphatase 70 (38-126) U/L Serum Total Protein 7.5 (6.3-8.2) g/dL Albumin 4.5 (3.5-5.0) g/dL Lipase 32 (23-300) U/L Urine Color (Yellow) Urine Appearance (Clear) Urine pH (4.6-8.0) Ur Specific [place] (1.005-1.030) Urine Protein (Negative) Urine Glucose (UA) (Negative) mg/dL Urine Ketones (Negative) Urine Blood (Negative) Urine Nitrite (Negative) Urine Bilirubin (Negative) Urine Urobilinogen (0.2) mg/dL Ur Leukocyte Esterase (Negative) U Hyaline Cast (Auto) (0-2) /LPF Urine Microscopic RBC (0-5) /HPF Urine Microscopic WBC (0-5) /HPF Ur Epithelial Cells (None Seen) /HPF Urine Bacteria (None Seen) /HPF Urine Culture Reflexed (NO) Influenza Type A Ag NEGATIVE (NEGATIVE) Influenza Type B Ag NEGATIVE (NEGATIVE) RSV (PCR) NEGATIVE (NEGATIVE) SARS-CoV-2 (PCR) NEGATIVE (NEGATIVE) 11/22/24 11/22/24 Range/Units 17:09 16:33 WBC (3.98-10.04) x10^3/uL RBC (3.93-5.22) x10^6/uL Hgb (11.2-15.7) g/dL Hct (34.1-44.9) % MCV (79.4-94.8) fL MCH (25.6-32.2) pg MCHC (32.2-35.5) g/dL RDW (11.7-14.4) % Plt Count (182-369) x10^3/uL MPV (9.4-12.3) fL Gran % (34.0-71.1) % Immature Gran % (Auto) (0.001-0.429) % Nucleat RBC Rel Count (0.00-0.2) % Eos # (Auto) (0.04-0.36) x10^3/uL Immature Gran # (Auto) (0.001-0.031) x10^3u/L Absolute Lymphs (auto) (1.18-3.74) x10^3/uL Absolute Monos (auto) (0.24-0.86) x10^3/uL Absolute Nucleated RBC (0.00-0.012) x10^3u/L Lymphocytes % (19.3-51.7) % Monocytes % (4.7-12.5) % Eosinophils % (0.7-5.8) % Basophils % (0.1-1.2) % Absolute Granulocytes (1.56-6.13) x10^3/uL Basophils # (0.01-0.08) x10^3/uL Sodium (135-145) mmol/L Potassium (3.5-5.1) mmol/L Chloride (98-107) mmol/L Carbon Dioxide (22-30) mmol/L Anion Gap (5-15) MEQ/L BUN (7-17) mg/dL Creatinine (0.52-1.04) mg/dL Estimated GFR ML/MIN Glucose (74-106) mg/dL Lactic Acid 2.3 H (0.4-2.0) Calcium (8.4-10.2) mg/dL Total Bilirubin (0.2-1.3) mg/dL AST (14-36) U/L ALT (0-35) U/L Alkaline Phosphatase (38-126) U/L Serum Total Protein (6.3-8.2) g/dL Albumin (3.5-5.0) g/dL Lipase (23-300) U/L Urine Color Yellow (Yellow) Urine Appearance Clear (Clear) Urine pH 6.5 (4.6-8.0) Ur Specific [place] 1.020 (1.005-1.030) Urine Protein Negative (Negative) Urine Glucose (UA) Negative (Negative) mg/dL Urine Ketones Trace A (Negative) Urine Blood Negative (Negative) Urine Nitrite Negative (Negative) Urine Bilirubin Negative (Negative) Urine Urobilinogen 0.2 (0.2) mg/dL Ur Leukocyte Esterase Negative (Negative) U Hyaline Cast (Auto) NONE SEEN (0-2) /LPF Urine Microscopic RBC 0-2 (0-5) /HPF Urine Microscopic WBC 0-2 (0-5) /HPF Ur Epithelial Cells None Seen (None Seen) /HPF Urine Bacteria None Seen (None Seen) /HPF Urine Culture Reflexed NO (NO) Influenza Type A Ag (NEGATIVE) Influenza Type B Ag (NEGATIVE) RSV (PCR) (NEGATIVE) SARS-CoV-2 (PCR) (NEGATIVE) - Progress Progress: unchanged Progress Note: Patient has some CVA type symptoms although could be an unusual presentation of MS. I am going to get a neuro teleconference scheduled. CT was done it showed no acute findings. CTA of the head and CTA of the carotids is pending right now.I will be turned this patient over to the oncoming doctor. 11/22/24 18:36 Medical Desision Making - Diagnostic Testing Diagnostic test were ordered, analyzed, and reviewed by me: Yes Radiological Interpretation: Reviewed by me - Risk of complications Low Risk: Low risk of morbidity from additional dx testing or treatment - Departure Referrals: EMILY KISER NP [Primary Care Provider] - Follow up/PCP as directed
[2024-11-22 16:55] LABS: Appearance Clear (Clear); Bacteria None Seen /HPF (None Seen); Bilirubin Negative (Negative); Blood Negative (Negative); Epithelial Cells None Seen /HPF (None Seen); Glucose, Urine Negative (Negative); Hyaline Casts NONE SEEN /LPF (0-2); Ketones Trace (Negative); Leukocyte Esterase Negative (Negative); Nitrite Negative (Negative); Ph 6.5 (4.6-8.0); Protein,Urine Dip Negative (Negative); RBC 0-2 /HPF (0-5); Urobilinogen 0.2 mg/dL (0.2); WBC 0-2 /HPF (0-5)
[2024-11-22 17:22] LABS: Absolute Neutrophil Ct (ANC) 7.59 x10^3/uL (1.56-6.13); BASOPHIL % 0.3 % (0.1-1.2); Basophil (Absolute #) 0.04 x10^3/uL (0.01-0.08); Eosinophil % 2.2 % (0.7-5.8); Eosinophil (Absolute #) 0.27 x10^3/uL (0.04-0.36); Hemoglobin 14.2 g/dL (11.2-15.7); IMMATURE GRAN # 0.06 x10^3u/L (0.001-0.031); IMMATURE GRAN % 0.5 % (0.001-0.429); Lymphocyte (Absolute #) 3.29 x10^3/uL (1.18-3.74); Lymphocytes % 27.3 % (19.3-51.7); Mean Cell Volume 89.4 fL (79.4-94.8); Mean Corpuscular Hemoglobin 29.5 pg (25.6-32.2); Mean Platelet Volume 10.5 fL (9.4-12.3); Monocyte (Absolute #) 0.81 x10^3/uL (0.24-0.86); Monocytes % 6.7 % (4.7-12.5); Platelet Count 306 x10^3/uL (182-369); Red Blood Count 4.81 x10^6/uL (3.93-5.22); Red Cell Distribution Width 12.7 % (11.7-14.4); White Blood Count 12.1 x10^3/uL (3.98-10.04)
[2024-11-22 17:35] LABS: ALBUMIN 4.5 g/dL (3.5-5.0); ANION GAP 17.6 MEQ/L (5-15); BILIRUBIN,TOTAL 0.4 mg/dL (0.2-1.3); Calcium 9.3 mg/dL (8.4-10.2); Creatinine 1 0.83 mg/dL (0.52-1.04); EST GLOMERULAR FILTRATION RATE 88.5 ML/MIN; Potassium 3.7 mmol/L (3.5-5.1); Total Protein 7.5 g/dL (6.3-8.2)
--- NOTE | 2024-11-22 17:36 | XRAY ---
CLINICAL HISTORY: cva sx COMPARISON: None. TECHNIQUE: Axial non-contrast CT scan of the brain was performed from the skull base to the high parietal region. One of the following dose reduction techniques were utilized for this exam: Automated exposure control, adjustment of the mA and/or kV according to patient size, use of iterative reconstruction. FINDINGS: Brain Parenchyma: Normal attenuation of the cerebral hemispheres, cerebellum, and brainstem. No evidence of acute infarct, hemorrhage, or mass effect. No abnormal areas of hypo- or hyperattenuation. Ventricular System: Ventricles are normal in size and configuration. No evidence of hydrocephalus or ventricular enlargement. Subarachnoid Spaces: Normal sulci and cisterns. No evidence of subarachnoid hemorrhage or extra-axial fluid collections. Cerebellum and Brainstem: Normal size and density. No masses, or lesions. Orbits: Normal appearance of the globes, optic nerves, and extraocular muscles. No evidence of orbital masses. Sinuses: Clear paranasal sinuses. No evidence of sinusitis or mucosal thickening. Mastoid Air Cells: Clear mastoid air cells. No evidence of mastoiditis. Skull and Meninges: Normal skull morphology. IMPRESSION: 1. No acute intracranial hemorrhage or established territorial infarct. 2. Unremarkable CT brain study. Electronically Signed by: Osvaldo Mathew MD. (11/22/2024 17:32:06 EDT)
[2024-11-22 18:01] LABS: INFLUENZA A NEGATIVE (NEGATIVE); INFLUENZA B NEGATIVE (NEGATIVE); RESPIRATORY SYNCTIAL VIRUS NEGATIVE (NEGATIVE); SARS-CoV-2 Xpert Express NEGATIVE (NEGATIVE)
--- NOTE | 2024-11-22 19:36 | XRAY ---
CLINICAL HISTORY: ruq and r flank pain COMPARISON: No prior studies available for comparison. TECHNIQUE: Non-contrast CT of the abdomen and pelvis was performed, with the following protocol: axial images, and reconstructed coronal and sagittal images. No intravenous contrast was administered. One of the following dose reduction techniques was utilized for this exam: Automated exposure control, adjustment of the mA and/or kV according to patient size, and use of iterative reconstruction. FINDINGS: Abdomen: Liver: Normal in size, shape, and density. Subcapsular hypodense focal lesion is seen at segment VII measuring about 1.2 cm. Evidence of cholecystectomy. Pancreas: Pancreatic head, body, and tail are visualized and appear normal in size and density. No pancreatic masses or calcifications were noted. Spleen: Normal in size, shape, and density. No splenic lesions or masses were identified. Appendix: The normal appendix is not clearly visualized. Kidneys and Adrenal Glands: Both kidneys are normal in size, shape, and position. Cortical thickness is within normal limits. No renal hydronephrosis. Tiny left renal middle calyceal stone measuring 2 mm, with no related hydrocalycosis. Adrenal glands are unremarkable. Pelvis: Urinary Bladder: Normal in contour and wall thickness. No intraluminal lesions. Uterus: subtotal hysterectomy with clear operative bed. Ovaries: Not well visualized but no gross abnormalities noted. Vagina: Normal in contour and wall thickness. Cervix: No evidence of mass or abnormal thickening. Peritoneal and Retroperitoneal Structures: No free fluid or abnormal fluid collections were identified within the abdomen or pelvis. No lymphadenopathy was noted. Mild atheromatous calcification of the aorta. Bowel: The visualized bowel loops are normal in caliber and appearance. No evidence of bowel obstruction or wall thickening. Bones and Soft Tissues: The pelvic bones and soft tissues are unremarkable. No fractures or abnormal masses were identified. IMPRESSION: 1. Subcapsular hepatic hypodense focal lesion is seen at segment VII measuring about 1.2 cm. possibly cyst, triphasic study is advised for further assessment. 2. Tiny left renal middle calyceal stone with no related hydrocalycosis. 3. Unremarkable rest of the study. Electronically Signed by: Osvaldo Mathew MD. (11/22/2024 19:33:00 EDT)
--- NOTE | 2024-11-22 19:40 | XRAY ---
CLINICAL HISTORY: cva COMPARISON: None. TECHNIQUE: Axial CT angiography of the head was done with contrast and sagittal and coronal reformats with MIP reconstructions. One of these 3D techniques was utilized: Maximum Intensity Pixel (MIP), 3D Reconstructed Images, Volume Rendered Images, Surface Shaded Rendering. One of the following dose reduction techniques were utilized for this exam: Automated exposure control, adjustment of the mA and/or kV according to patient size, and use of iterative reconstruction. FINDINGS: Intracranial Arteries: The intracranial portions of the internal carotid arteries, anterior cerebral arteries, middle cerebral arteries, posterior cerebral arteries, basilar artery, and vertebral arteries are well-opacified. No evidence of aneurysm, stenosis, or occlusion. No significant atherosclerotic changes. [place]: The [place] is complete. Normal caliber of the communicating arteries. No vascular malformations or aneurysms. Venous Structures: Normal opacification of the major dural venous sinuses. No evidence of venous sinus thrombosis. Brain Parenchyma: Normal attenuation of the cerebral hemispheres, cerebellum, and brainstem. No evidence of acute infarct, hemorrhage, or mass effect. Ventricular System: Ventricles are normal in size and configuration. No evidence of hydrocephalus or ventricular enlargement. Skull and Meninges: Normal appearance of the skull. No evidence of meningeal enhancement or thickening. Orbits: Normal appearance of the globes, optic nerves, and extraocular muscles. No evidence of orbital masses or abnormal signal. IMPRESSION: 1. Normal CT angiography of the head. 2. No evidence of significant vascular abnormalities. Electronically Signed by: Osvaldo Mathew MD. (11/22/2024 19:37:04 EDT)
--- NOTE | 2024-11-22 19:41 | PCM.NOTE ---
Physician Signature This document was electronically signed by: Josué Odom DO 11/22/2024 07:39 PM Consult Cover Page FROM: [facility], Call Back Number: [phone] SUBJECT: Consult Recommendations Date and Time of Report: 11/22/2024 07:39 PM ET Items Contained in this Document: Neurology Consult Note Consult Information Member Facility: [facility] Facility Consult ID: [id number] Facility Time Zone: ET Date and Time of Request: 11-22-2024 06:45 PM ET Requesting Clinician: Dirk Perry Patient Name: ASAD KEANE Date of : 1980 Gender: Female Patient identity was confirmed at the beginning of the consult with the patient/family/staff using two personal identifiers: Patient name and Reason for Consult Reason for Consult: Code Stroke TLKW 4.5 to 24 hours General Chief Complaint: right side tingling and weakness Patient Location and Admission Status: ED- Patient is not admitted Family Members and Medical Staff Present During Exam: , RN History of Present Illness: right-handed. MedHx: HTN, DM, gastroparesis, migraines LKW 2 months had abdominal pain for 4 days , on antibiotics with no change, that is why she came into ED. also had issues with right side with weakness and tingling, and difficulty walking for the past couple months. has seen multiple specialists outpatient. has weak train planner on right, difficulty holding right leg up. can barely climb steps. no vision changes. earlier today was at [employer] and she touched a hot machine with her right side and only felt some warmth, but her left hand touched it and was very hot. also touched and set it was very hot. denies numbness. has pain in right face. she got MRI without contrast cervical and lumbar spine. denies stroke hx. has weekly migraines. paternal grandfather and great uncle both with multiple sclerosis. lisinopril, metoprolol, reglan, ozempic, levaquin, topamax been taking topamax for maybe 2 years. 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 REVIEW OF SYSTEMS 14 point reviewed and is negative except as above. Neurologist and patient are in same time zone, documented as local (flora) william owens Camera date/time: 1847, camera issues resolved 1854 Imaging read time: 1850 IVT decision/time: 1854 Number of Documented HPI Elements: 4+ Medical History Other Medical History: HTN, DM, gastroparesis, migraines Other Family History: paternal grandfather and great uncle both with multiple sclerosis Allergies Other Allergies: morphine, bactrim, clindamycin, midazolam Medications Anti-Coagulants: None Anti-Platelets: None Other Medications: lisinopril, metoprolol, reglan, ozempic, levaquin, topamax Social History Alcohol Use: None Drug Use: None Tobacco Use: Current Vital Signs Temperature: N/A Blood Pressure (mmHg): 134/94 Heart Rate (bpm): N/A Respiration Rate (/min): 18 O2 Sat (%): 98 Date and Time: 11/22/2024 07:23:19 PM ET Review Of Systems Neurological: See HPI Exam Exam: Gen: Well developed, well nourished. No acute distress. MS: Awake and oriented. Alert. Fund of knowledge, memory, and language at baseline. CV: well-perfused. No edema. tray packer: NH, EOMI. +blink. Unable to visualize fundi. Sensation intact. Face is symmetric. Hearing intact. Shoulder shrug intact. Tongue midline. Motor: Antigravity on left and RUE, 3/5 RLE but barely. can flex right hip and knee to rest foot flat on bed. has 3/5 movements of right ankle. Normal bulk. Tone cannot be assessed accurately over the camera. Sens: Intact to light touch in all 4 extremities. MSR: Unable to assess through telemedicine, no clonus noted. Mvmt: No tremors noted. SHINE/FTN intact. Gait: Deferred. Clinician assisting with exam: RN Labs and Imaging CT Brain Findings: No acute changes Additional CT Image Types Reviewed: CTA Assessment and Recommendations Assessment: couple motnhs of right side tingling and weakness and temperature insensitivity faciobrachiocrural distributions. MRI w/o contrast cervical and lumbar spine done 09/2023 (personally reviewed) with mild disc degenerations and bony changes but no cord compression, myelomalacia, or abnormal cord signal. should have MRI brain with and without done to evaluate for multiple sclerosis, as she is in demographic and has family history. does not need further spine imaging at this time as her weakness and temperature insensitivity are ipsilateral, the only location in the neuraxis to allow that is in the brain and upper brainstem. also facial involvement is related to the neuraxis no lower than C1 in c-spine. not high enough clinical suspicion for stroke at this time, does not need stroke prevention. Recommendations: - MRI brain with and without contrast - PT/OT - follow up neuro tomorrow (will place follow up) I personally reviewed imaging, chart information including prior notes and labs as available, and discussed with the primary provider. This telemedicine evaluation was performed using a real-time, 2-way, audio and video connection and written or verbal consent was obtained from the patient/surrogate. 2 identifiers name and date of used. Disposition: Admit patient to general med/surgery Diagnosis Impression: Other Diagnosis Other: right side hemiplegia and paresthesia Case discussed with: Dr. Perry ICD-10 Code ICD-10 Code (Primary): G81.91 : Hemiplegia, unspecified affecting right dominant side ICD-10 Code: R20.2 : Paresthesia of skin ICD-10 Code: R20.8 : Other disturbances of skin sensation Attestation Interaction Mode: Video Only Time of Video Call : 11-22-2024 06:48 PM ET Interaction Attestation: Clinical telemedicine services delivered using HIPAA - compliant interactive video-audio telecommunications while the patient and the rendering provider were not in the same physical location. Written report was provided to the requesting provider. Evaluation Duration (mins): 30 [place] Timer Summary ED Arrival Date and Time: 11-22-2024 04:25 PM ET Date and Time of Request: 11-22-2024 06:45 PM ET Physician Signature This document was electronically signed by: Josué Odom DO 11/22/2024 07:39 PM
--- NOTE | 2024-11-22 19:42 | XRAY ---
CLINICAL HISTORY: Right sided CVA symptoms COMPARISON: None. TECHNIQUE: Axial CT angiography of the neck was done with contrast and sagittal and coronal reformats with MIP reconstructions. One of these 3D techniques was utilized: Maximum Intensity Pixel (MIP), 3D Reconstructed Images, Volume Rendered Images, Surface Shaded Rendering. One of the following dose reduction techniques were utilized for this exam: Automated exposure control, adjustment of the mA and/or kV according to patient size, and use of iterative reconstruction. CTDI: DLP: FINDINGS: The ascending aorta shows average caliber having a maximum diameter of 3 cm. The aortic arch in particular appears patent showing average caliber measuring about 2.7 cm in maximum diameter. It shows rather smooth outline with no evidence of intimal dissecting flap. No significant stenotic or aneurysmal dilated segments. The brachiocepahlic and left common carotid arteries appear patent of average caliber and they arise from a common stem origin. Normal appearance of the origin of the left subclavian artery. Patent both common and internal carotid arteries showing average caliber and normal course through the neck. No stenotic lesions seen. Patent, average caliber both vertebral arteries is noted. Mild spondylotic spinal changes, maximal at C5/6, and C6/7 levels. IMPRESSION: 1. No evidence of significant extracranial vascular abnormalities. 2. Mild spondylotic spinal changes, maximal at C5/6, and C6/7 levels. Electronically Signed by: Osvaldo Mathew MD. (11/22/2024 19:37:38 EDT)
[2024-11-22] MEDS ORDERED: Sodium Chloride 0.9% 1000 ML 1,000 ML ONE (21:05)
[2024-11-22] MEDS ORDERED: Hydromorphone 1 mg/ml Injection ONE (21:05)
[2024-11-22] MEDS ORDERED: Inapsine 5 MG/2 ML ONE (21:05)
[2024-11-22] MEDS ORDERED: ROCEPHIN 1 GM / 100 ML NaCl 1 GM/100 ML IVPB IV ONE (21:07)
[2024-11-22] MEDS: Sodium Chloride 0.9% 1000 ML 1,000 ML IV STA (21:09)
[2024-11-22] MEDS: Inapsine 5 MG/2 ML IV ONE (21:10)
[2024-11-22] MEDS: Hydromorphone 1 mg/ml Injection IV ONE (21:12)
[2024-11-22] MEDS: ROCEPHIN 1 GM / 100 ML NaCl 1 GM/100 ML IVPB IV ONE (21:14)
--- NOTE | 2024-11-22 21:20 | PCM.HP ---
History of Present Illness - Chief Complaint Chief Complaint: neuro deficits Date: 11/22/24 History of Present Illness: Ms. KEANE is a 44 year old female with a past medical history significant for UTI, C dif, and anxiety who presents with complaints of R sided abdominal pain/urinary symptoms that was treated with antibiotics without improvement who now comes with complaints of persistent R sided weakness and loss of sensation that has been going on for the past few months. She notes weakness in her RLE > RUE and persistent brain fog but no shortness of breath. She has a family history of multiple sclerosis (grandfather and his brother) and was seen by teleneurology who is concerned about that possibility. She has been continued on antibiotics but is recommended for admission for MRI w/wo contrast to rule out MS. She is seen via telehealth, awake/alert. No fever/chills. No chest pain or shortness of breath. No nausea, vomiting or diarrhea. No dysuria, hematuria, but does have some frequency/urgency. - Review of Systems Constitutional: No Fever, No Chills Eyes: No Vision Changes, No Double Vision Ears, Nose, & Throat: No Throat Pain Respiratory: No Cough, No Short Of Breath Cardiac: No Chest Pain, No Palpitations Abdominal/Gastrointestinal: No Abdominal Pain, No Nausea, No Vomiting, No Diarrhea Genitourinary Symptoms: No Frequency, No Hematuria Musculoskeletal: Arthralgias Neurological: Sensory Changes, No Focal Weakness Psychological: No Suicidal Ideations Endocrine: No Polyuria, No Polydipsia Medications & Allergies Home Medications: Home Medication List Cyanocobalamin 1000 Mcg/ml [Cyanocobalamin B-12 1000 MCG/ML] 1,000 mcg IM UD 12/20/14 [History Confirmed 04/02/24] Methocarbamol [Robaxin] 500 mg PO QID PRN 06/02/17 [History Confirmed 04/02/24] Gabapentin 400 mg PO TID PRN 07/31/17 [History Confirmed 04/02/24] Methylphenidate HCl [Ritalin] 20 mg PO UD 08/29/18 [History Confirmed 04/02/24] Ergocalciferol (Vitamin D2) [Vitamin D] 50,000 unit PO WEEKLY 10/13/19 [History Confirmed 04/02/24] Metoprolol Succinate 50 mg [Toprol Xl 50 MG] 50 mg PO BID 06/02/20 [History Confirmed 04/02/24] Topiramate 25 mg [Topamax 25 MG] 50 mg PO DAILY 08/20/23 [History Confirmed 04/02/24] Ciprofloxacin [Cipro 500 MG] 500 mg PO BID 04/02/24 [History Confirmed 04/02/24] lisinopriL [Zestril] 2.5 mg PO DAILY 04/02/24 [History Confirmed 04/02/24] Allergies/Adverse Reactions: Allergies Allergy/AdvReac Type Severity Reaction Status Date / Time midazolam HCl [From Versed] Allergy Severe Swelling Verified 11/22/24 16:22 of Tongue and Lips clindamycin Allergy Intermediate Stomach Verified 11/22/24 16:22 swelling sulfamethoxazole Allergy Mild Rash Verified 11/22/24 16:22 [From Bactrim] trimethoprim [From Bactrim] Allergy Mild Rash Verified 11/22/24 16:22 morphine AdvReac Mild "makes me Verified 11/22/24 16:22 mean" - Past Medical History Past Medical History: Yes Neurological History: Peripheral Neuropathy ENT History: No Pertinent History Cardiac History: High Cholesterol, Hypertension Respiratory History: No Pertinent History Endocrine Medical History: Diabetes Type II Musculoskelatal History: Osteoarthritis GI Medical History: Gallbladder Disease, Other History: Other Pyscho-Social History: Anxiety, Attention Deficit Disorder, Other Reproductive Disorders: Fibroids Comment: PSH: 3 HIP SURGERIES, BREAST REDUCTION, GALL BLADDER, HYSTERECTOMY,. PMH: SMOKING CURRENT, ANXIETY/STRESS DISORDER - Female History Are you now?: No - Past Surgical History Past Surgical History: Yes Neuro Surgical History: No Pertinent History Cardiac History: No Pertinent History Respiratory Surgery: No Pertinent History GI Surgical History: Cholecystectomy Genitourinary Surgical Hx: No Pertinent History Musculskeletal Surgical Hx: Orthopedic Surgery Female Surgical History: Section, Hysterectomy, Other Other Surgical History: right carpletunnel, breast reduction, right hip surgx3 . right knee scope, L breast lumpectomy, two fecal transplants r/t c-diff - Social History Smoking Status: Current every day smoker How long have you smoked: 30 years Exposure to second hand smoke: No Alcohol: None Drug Use: none - Social Determinants of Health Will the patient participate in the screening: Yes Do you worry about a steady place to live?: No Do you have any problems with any of the following?: No known problems In the past 12 months,have you had to go without utilities?: No Have you or anyone in your house had to go without enough: No Transportation Issues: No Has anyone in your support network made you feel unsafe?: No - Physical Exam Vital Signs: Vital Signs - 24 hr Temp Pulse Resp BP BP Pulse Ox 11/22/24 19:00 70 19 143/83 100 11/22/24 18:50 100 11/22/24 18:40 100 11/22/24 18:38 99 11/22/24 17:54 123/80 11/22/24 16:30 18 134/94 98 11/22/24 16:24 98.3 F 109 H 20 140/88 100 General Appearance: no apparent distress Neurologic Exam: alert Ears, Nose, Throat Exam: dry mucous membranes Neck Exam: supple Respiratory Exam: No respiratory distress Cardiovascular Exam: regular rate/rhythm Gastrointestinal/Abdomen Exam: soft Extremity Exam: No pedal edema, No swelling Skin Exam: normal color, No rash Results - Labs Lab/Micro Results: Lab Results-Last 24 Hours 11/22/24 11/22/24 11/22/24 Range/Units 16:33 17:09 17:10 WBC 12.1 H (3.98-10.04) x10^3/uL RBC 4.81 (3.93-5.22) x10^6/uL Hgb 14.2 (11.2-15.7) g/dL Hct 43.0 (34.1-44.9) % MCV 89.4 (79.4-94.8) fL MCH 29.5 (25.6-32.2) pg MCHC 33.0 (32.2-35.5) g/dL RDW 12.7 (11.7-14.4) % Plt Count 306 (182-369) x10^3/uL MPV 10.5 (9.4-12.3) fL Gran % 63.0 (34.0-71.1) % Immature Gran % (Auto) 0.5 H (0.001-0.429) % Nucleat RBC Rel Count 0.0 (0.00-0.2) % Eos # (Auto) 0.27 (0.04-0.36) x10^3/uL Immature Gran # (Auto) 0.06 H (0.001-0.031) x10^3u/L Absolute Lymphs (auto) 3.29 (1.18-3.74) x10^3/uL Absolute Monos (auto) 0.81 (0.24-0.86) x10^3/uL Absolute Nucleated RBC 0.00 (0.00-0.012) x10^3u/L Lymphocytes % 27.3 (19.3-51.7) % Monocytes % 6.7 (4.7-12.5) % Eosinophils % 2.2 (0.7-5.8) % Basophils % 0.3 (0.1-1.2) % Absolute Granulocytes 7.59 H (1.56-6.13) x10^3/uL Basophils # 0.04 (0.01-0.08) x10^3/uL Sodium (135-145) mmol/L Potassium (3.5-5.1) mmol/L Chloride (98-107) mmol/L Carbon Dioxide (22-30) mmol/L Anion Gap (5-15) MEQ/L BUN (7-17) mg/dL Creatinine (0.52-1.04) mg/dL Estimated GFR ML/MIN Glucose (74-106) mg/dL Lactic Acid 2.3 H (0.4-2.0) Calcium (8.4-10.2) mg/dL Total Bilirubin (0.2-1.3) mg/dL AST (14-36) U/L ALT (0-35) U/L Alkaline Phosphatase (38-126) U/L Serum Total Protein (6.3-8.2) g/dL Albumin (3.5-5.0) g/dL Lipase (23-300) U/L Urine Color Yellow (Yellow) Urine Appearance Clear (Clear) Urine pH 6.5 (4.6-8.0) Ur Specific [place] 1.020 (1.005-1.030) Urine Protein Negative (Negative) Urine Glucose (UA) Negative (Negative) mg/dL Urine Ketones Trace A (Negative) Urine Blood Negative (Negative) Urine Nitrite Negative (Negative) Urine Bilirubin Negative (Negative) Urine Urobilinogen 0.2 (0.2) mg/dL Ur Leukocyte Esterase Negative (Negative) U Hyaline Cast (Auto) NONE SEEN (0-2) /LPF Urine Microscopic RBC 0-2 (0-5) /HPF Urine Microscopic WBC 0-2 (0-5) /HPF Ur Epithelial Cells None Seen (None Seen) /HPF Urine Bacteria None Seen (None Seen) /HPF Urine Culture Reflexed NO (NO) Influenza Type A Ag (NEGATIVE) Influenza Type B Ag (NEGATIVE) RSV (PCR) (NEGATIVE) SARS-CoV-2 (PCR) (NEGATIVE) 11/22/24 11/22/24 Range/Units 17:10 17:10 WBC (3.98-10.04) x10^3/uL RBC (3.93-5.22) x10^6/uL Hgb (11.2-15.7) g/dL Hct (34.1-44.9) % MCV (79.4-94.8) fL MCH (25.6-32.2) pg MCHC (32.2-35.5) g/dL RDW (11.7-14.4) % Plt Count (182-369) x10^3/uL MPV (9.4-12.3) fL Gran % (34.0-71.1) % Immature Gran % (Auto) (0.001-0.429) % Nucleat RBC Rel Count (0.00-0.2) % Eos # (Auto) (0.04-0.36) x10^3/uL Immature Gran # (Auto) (0.001-0.031) x10^3u/L Absolute Lymphs (auto) (1.18-3.74) x10^3/uL Absolute Monos (auto) (0.24-0.86) x10^3/uL Absolute Nucleated RBC (0.00-0.012) x10^3u/L Lymphocytes % (19.3-51.7) % Monocytes % (4.7-12.5) % Eosinophils % (0.7-5.8) % Basophils % (0.1-1.2) % Absolute Granulocytes (1.56-6.13) x10^3/uL Basophils # (0.01-0.08) x10^3/uL Sodium 141 (135-145) mmol/L Potassium 3.7 (3.5-5.1) mmol/L Chloride 107 (98-107) mmol/L Carbon Dioxide 20 L (22-30) mmol/L Anion Gap 17.6 H (5-15) MEQ/L BUN 10 (7-17) mg/dL Creatinine 0.83 (0.52-1.04) mg/dL Estimated GFR 88.5 ML/MIN Glucose 100 (74-106) mg/dL Lactic Acid (0.4-2.0) Calcium 9.3 (8.4-10.2) mg/dL Total Bilirubin 0.40 (0.2-1.3) mg/dL AST 21 (14-36) U/L ALT 20 (0-35) U/L Alkaline Phosphatase 70 (38-126) U/L Serum Total Protein 7.5 (6.3-8.2) g/dL Albumin 4.5 (3.5-5.0) g/dL Lipase 32 (23-300) U/L Urine Color (Yellow) Urine Appearance (Clear) Urine pH (4.6-8.0) Ur Specific [place] (1.005-1.030) Urine Protein (Negative) Urine Glucose (UA) (Negative) mg/dL Urine Ketones (Negative) Urine Blood (Negative) Urine Nitrite (Negative) Urine Bilirubin (Negative) Urine Urobilinogen (0.2) mg/dL Ur Leukocyte Esterase (Negative) U Hyaline Cast (Auto) (0-2) /LPF Urine Microscopic RBC (0-5) /HPF Urine Microscopic WBC (0-5) /HPF Ur Epithelial Cells (None Seen) /HPF Urine Bacteria (None Seen) /HPF Urine Culture Reflexed (NO) Influenza Type A Ag NEGATIVE (NEGATIVE) Influenza Type B Ag NEGATIVE (NEGATIVE) RSV (PCR) NEGATIVE (NEGATIVE) SARS-CoV-2 (PCR) NEGATIVE (NEGATIVE) - Radiology Impressions Radiology Exams & Impressions: Radiology Procedures Category Date Time Status ABDOMEN AND PELVIS W/0 CONTRAS [CT] Stat Exams 11/22/24 16:[address] ANGIOGRAPHY NECK [CT] Stat Exams 11/22/24 16:44 Completed CTA HEAD W AND/OR WO CONTRAST [CT] Stat Exams 11/22/24 17:53 Completed HEAD WITHOUT CONTRAST [CT] Stat Exams 11/22/24 17:01 Completed Assessment/Plan (1) Weakness Current Visit: Yes Status: Acute Assessment & Plan: Unclear etiology but concerning for possibility of MS 1. Admit to hospital 2. Will obtain MRI brain w/wo contrast 3. Neuro checks 4. PT/OT eval 5. DVT/GI prophylaxis 6. Plans per tele-neuro Code(s): R53.1 - WEAKNESS (2) Abdominal pain Current Visit: No Status: Acute Qualifiers: Abdominal location: right upper quadrant Qualified Code(s): R10.11 - Right upper quadrant pain Assessment & Plan: Likely viral gastroenteritis but does have history of C dif 1. IVFs 2. Pain control 3. Advance diet 4. Defer antibiotics for now Code(s): R10.9 - UNSPECIFIED ABDOMINAL PAIN (3) Lactic acidosis Current Visit: Yes Status: Acute Assessment & Plan: Likely from prerenal azotemia 1. IVFs 2. Trend lactic acid 3. Monitor ABG prn Code(s): E87.20 - ACIDOSIS, UNSPECIFIED Telemedicine Encounter - Telemedicine Encounter Telemedicine Encounter: "The entirety of this encounter was performed via Telemedicine" This visit was performed using real-time audio and video connection between my location and thepatients locationwith the assistance of a surrogateat the patients location. Written or verbal consent was obtained from the patient/guardian to perform this visit using[place] [facility] [place]. Any patient questions regarding the telemedicine interaction were answered.
[2024-11-22] MEDS ORDERED: TYLENOL 325 MG PO PRN (21:53)
[2024-11-22] MEDS ORDERED: Zofran 4 MG/2 ML VIAL IV PRN (21:53)
[2024-11-22] MEDS ORDERED: METHYLPHENIDATE HCL 20 MG PO SCH (22:00)
[2024-11-22] MEDS ORDERED: TOPIRAMATE ONE (23:50)
[2024-11-22] MEDS: Sodium Chloride 0.9% 1000 ML 1,000 ML IV SCH (23:50)
[2024-11-22] MEDS: Toprol Xl 50 MG PO SCH (23:53)
[2024-11-23 05:26] LABS: Absolute Neutrophil Ct (ANC) 4.93 x10^3/uL (1.56-6.13); BASOPHIL % 0.4 % (0.1-1.2); Basophil (Absolute #) 0.04 x10^3/uL (0.01-0.08); Eosinophil % 3.2 % (0.7-5.8); Eosinophil (Absolute #) 0.33 x10^3/uL (0.04-0.36); Hematocrit 35.8 % (34.1-44.9); Hemoglobin 11.7 g/dL (11.2-15.7); IMMATURE GRAN # 0.04 x10^3u/L (0.001-0.031); IMMATURE GRAN % 0.4 % (0.001-0.429); Lymphocyte (Absolute #) 4.24 x10^3/uL (1.18-3.74); Lymphocytes % 40.9 % (19.3-51.7); Mean Cell Volume 89.5 fL (79.4-94.8); Mean Corpuscular Hemoglobin 29.3 pg (25.6-32.2); Mean Corpuscular Hgb Concent. 32.7 g/dL (32.2-35.5); Mean Platelet Volume 10.8 fL (9.4-12.3); Monocyte (Absolute #) 0.79 x10^3/uL (0.24-0.86); Monocytes % 7.6 % (4.7-12.5); Neutrophil % 47.5 % (34.0-71.1); Platelet Count 260 x10^3/uL (182-369); White Blood Count 10.4 x10^3/uL (3.98-10.04)
[2024-11-23 05:51] LABS: ALBUMIN 3.3 g/dL (3.5-5.0); ANION GAP 12.8 MEQ/L (5-15); BILIRUBIN,TOTAL 0.3 mg/dL (0.2-1.3); Calcium 8.3 mg/dL (8.4-10.2); Creatinine 1 0.68 mg/dL (0.52-1.04); EST GLOMERULAR FILTRATION RATE 109.4 ML/MIN; Potassium 3.4 mmol/L (3.5-5.1); Total Protein 5.9 g/dL (6.3-8.2)
[2024-11-23] MEDS ORDERED: MEDICATION INTERVENTION MC SCH (08:00)
[2024-11-23] MEDS: Klor Con PO ONE (08:55)
--- NOTE | 2024-11-23 09:44 | PCM.DS ---
Discharge Summary Date of Admission: 11/22/24 21:37 Date of Discharge: 11/23/24 Admitting Physician: PARVIN DARBY MD Consults: Consults on Case 11/22/24 18:59 Tele-Health Consult ROUTINE Primary Care Provider: EMILY KISER Allergies Allergies midazolam HCl [From Versed] Allergy (Severe, Verified 11/22/24 16:22) Swelling of Tongue and Lips clindamycin Allergy (Intermediate, Verified 11/22/24 16:22) Stomach swelling sulfamethoxazole [From Bactrim] Allergy (Mild, Verified 11/22/24 16:22) Rash trimethoprim [From Bactrim] Allergy (Mild, Verified 11/22/24 16:22) Rash morphine Adverse Reaction (Mild, Verified 11/22/24 16:22) "makes me mean" pt states it makes her mean Hospital Summary - Hospital Course Hospital Course: 11/23/24 Ms. KEANE is a 44 year old female with a past medical history significant for UTI, C dif, and anxiety. She presented on 11/22/24 with complaints of R sided abd ominal pain/urinary symptoms that was treated with antibiotics without improvement who now comes with complaints of persistent R sided weakness and loss of sensation that has been going on for the past few months. She notes weakness in her RLE > RUE and persistent brain fog but no shortness of breath. She has a family history of multiple sclerosis (grandfather and his brother) and was seen by teleneurology who is concerned about that possibility. She has been continued on antibiotics but is recommended for admission for MRI w/wo contrast to rule out MS. No fever/chills. No chest pain or shortness of breath. No nausea, vomiting or diarrhea. No dysuria, hematuria, but does have some frequency/urgency. UA negative for UTI. K+ 3.[address] abd/pelvis shows Subcapsular hepatic hypodense focal lesion is seen at segment VII measuring about 1.[address] abd w/ wo ordered- triple phase study, however per radiologist Dr. Cho this is not a new finding and has been the same size for a while. CT cancelled and will have pt f/u OP with hepatology. CTA head negative. CT head negative for acute concern. MRI brain negative f/u OP with neurology. - Vitals & Intake/Output Vital Signs: Vital Signs Temperature 97.6 F 11/23/24 07:35 Pulse Rate 93 H 11/23/24 07:35 Respiratory Rate 16 11/23/24 07:35 Blood Pressure 150/72 11/23/24 07:35 O2 Sat by Pulse Oximetry 97 11/23/24 07:35 Intake & Output: Intake & Output 11/20/24 11/21/24 11/22/24 11/23/24 10:59 10:59 11:59 11:59 Intake Total 1618 Balance 1618 Weight 98.3 kg - Lab Result Diagrams: 11/23/24 05:19 11/23/24 05:19 Lab Results-Last 24 Hrs: Lab Results-Last 24 Hours 11/22/24 11/22/24 11/22/24 Range/Units 16:33 17:09 17:10 WBC 12.1 H (3.98-10.04) x10^3/uL RBC 4.81 (3.93-5.22) x10^6/uL Hgb 14.2 (11.2-15.7) g/dL Hct 43.0 (34.1-44.9) % MCV 89.4 (79.4-94.8) fL MCH 29.5 (25.6-32.2) pg MCHC 33.0 (32.2-35.5) g/dL RDW 12.7 (11.7-14.4) % Plt Count 306 (182-369) x10^3/uL MPV 10.5 (9.4-12.3) fL Gran % 63.0 (34.0-71.1) % Immature Gran % (Auto) 0.5 H (0.001-0.429) % Nucleat RBC Rel Count 0.0 (0.00-0.2) % Eos # (Auto) 0.27 (0.04-0.36) x10^3/uL Immature Gran # (Auto) 0.06 H (0.001-0.031) x10^3u/L Absolute Lymphs (auto) 3.29 (1.18-3.74) x10^3/uL Absolute Monos (auto) 0.81 (0.24-0.86) x10^3/uL Absolute Nucleated RBC 0.00 (0.00-0.012) x10^3u/L Lymphocytes % 27.3 (19.3-51.7) % Monocytes % 6.7 (4.7-12.5) % Eosinophils % 2.2 (0.7-5.8) % Basophils % 0.3 (0.1-1.2) % Absolute Granulocytes 7.59 H (1.56-6.13) x10^3/uL Basophils # 0.04 (0.01-0.08) x10^3/uL Sodium (135-145) mmol/L Potassium (3.5-5.1) mmol/L Chloride (98-107) mmol/L Carbon Dioxide (22-30) mmol/L Anion Gap (5-15) MEQ/L BUN (7-17) mg/dL Creatinine (0.52-1.04) mg/dL Estimated GFR ML/MIN Glucose (74-106) mg/dL Lactic Acid 2.3 H (0.4-2.0) Calcium (8.4-10.2) mg/dL Total Bilirubin (0.2-1.3) mg/dL AST (14-36) U/L ALT (0-35) U/L Alkaline Phosphatase (38-126) U/L Serum Total Protein (6.3-8.2) g/dL Albumin (3.5-5.0) g/dL Lipase (23-300) U/L Urine Color Yellow (Yellow) Urine Appearance Clear (Clear) Urine pH 6.5 (4.6-8.0) Ur Specific [place] 1.020 (1.005-1.030) Urine Protein Negative (Negative) Urine Glucose (UA) Negative (Negative) mg/dL Urine Ketones Trace A (Negative) Urine Blood Negative (Negative) Urine Nitrite Negative (Negative) Urine Bilirubin Negative (Negative) Urine Urobilinogen 0.2 (0.2) mg/dL Ur Leukocyte Esterase Negative (Negative) U Hyaline Cast (Auto) NONE SEEN (0-2) /LPF Urine Microscopic RBC 0-2 (0-5) /HPF Urine Microscopic WBC 0-2 (0-5) /HPF Ur Epithelial Cells None Seen (None Seen) /HPF Urine Bacteria None Seen (None Seen) /HPF Urine Culture Reflexed NO (NO) Influenza Type A Ag (NEGATIVE) Influenza Type B Ag (NEGATIVE) RSV (PCR) (NEGATIVE) SARS-CoV-2 (PCR) (NEGATIVE) 11/22/24 11/22/24 11/23/24 Range/Units 17:10 17:10 05:19 WBC 10.4 H (3.98-10.04) x10^3/uL RBC 4.00 (3.93-5.22) x10^6/uL Hgb 11.7 (11.2-15.7) g/dL Hct 35.8 (34.1-44.9) % MCV 89.5 (79.4-94.8) fL MCH 29.3 (25.6-32.2) pg MCHC 32.7 (32.2-35.5) g/dL RDW 13.0 (11.7-14.4) % Plt Count 260 (182-369) x10^3/uL MPV 10.8 (9.4-12.3) fL Gran % 47.5 (34.0-71.1) % Immature Gran % (Auto) 0.4 (0.001-0.429) % Nucleat RBC Rel Count 0.0 (0.00-0.2) % Eos # (Auto) 0.33 (0.04-0.36) x10^3/uL Immature Gran # (Auto) 0.04 H (0.001-0.031) x10^3u/L Absolute Lymphs (auto) 4.24 H (1.18-3.74) x10^3/uL Absolute Monos (auto) 0.79 (0.24-0.86) x10^3/uL Absolute Nucleated RBC 0.00 (0.00-0.012) x10^3u/L Lymphocytes % 40.9 (19.3-51.7) % Monocytes % 7.6 (4.7-12.5) % Eosinophils % 3.2 (0.7-5.8) % Basophils % 0.4 (0.1-1.2) % Absolute Granulocytes 4.93 (1.56-6.13) x10^3/uL Basophils # 0.04 (0.01-0.08) x10^3/uL Sodium 141 (135-145) mmol/L Potassium 3.7 (3.5-5.1) mmol/L Chloride 107 (98-107) mmol/L Carbon Dioxide 20 L (22-30) mmol/L Anion Gap 17.6 H (5-15) MEQ/L BUN 10 (7-17) mg/dL Creatinine 0.83 (0.52-1.04) mg/dL Estimated GFR 88.5 ML/MIN Glucose 100 (74-106) mg/dL Lactic Acid (0.4-2.0) Calcium 9.3 (8.4-10.2) mg/dL Total Bilirubin 0.40 (0.2-1.3) mg/dL AST 21 (14-36) U/L ALT 20 (0-35) U/L Alkaline Phosphatase 70 (38-126) U/L Serum Total Protein 7.5 (6.3-8.2) g/dL Albumin 4.5 (3.5-5.0) g/dL Lipase 32 (23-300) U/L Urine Color (Yellow) Urine Appearance (Clear) Urine pH (4.6-8.0) Ur Specific [place] (1.005-1.030) Urine Protein (Negative) Urine Glucose (UA) (Negative) mg/dL Urine Ketones (Negative) Urine Blood (Negative) Urine Nitrite (Negative) Urine Bilirubin (Negative) Urine Urobilinogen (0.2) mg/dL Ur Leukocyte Esterase (Negative) U Hyaline Cast (Auto) (0-2) /LPF Urine Microscopic RBC (0-5) /HPF Urine Microscopic WBC (0-5) /HPF Ur Epithelial Cells (None Seen) /HPF Urine Bacteria (None Seen) /HPF Urine Culture Reflexed (NO) Influenza Type A Ag NEGATIVE (NEGATIVE) Influenza Type B Ag NEGATIVE (NEGATIVE) RSV (PCR) NEGATIVE (NEGATIVE) SARS-CoV-2 (PCR) NEGATIVE (NEGATIVE) 11/23/24 11/23/24 Range/Units 05:19 07:45 WBC (3.98-10.04) x10^3/uL RBC (3.93-5.22) x10^6/uL Hgb (11.2-15.7) g/dL Hct (34.1-44.9) % MCV (79.4-94.8) fL MCH (25.6-32.2) pg MCHC (32.2-35.5) g/dL RDW (11.7-14.4) % Plt Count (182-369) x10^3/uL MPV (9.4-12.3) fL Gran % (34.0-71.1) % Immature Gran % (Auto) (0.001-0.429) % Nucleat RBC Rel Count (0.00-0.2) % Eos # (Auto) (0.04-0.36) x10^3/uL Immature Gran # (Auto) (0.001-0.031) x10^3u/L Absolute Lymphs (auto) (1.18-3.74) x10^3/uL Absolute Monos (auto) (0.24-0.86) x10^3/uL Absolute Nucleated RBC (0.00-0.012) x10^3u/L Lymphocytes % (19.3-51.7) % Monocytes % (4.7-12.5) % Eosinophils % (0.7-5.8) % Basophils % (0.1-1.2) % Absolute Granulocytes (1.56-6.13) x10^3/uL Basophils # (0.01-0.08) x10^3/uL Sodium 139 (135-145) mmol/L Potassium 3.4 L (3.5-5.1) mmol/L Chloride 110 H (98-107) mmol/L Carbon Dioxide 19 L (22-30) mmol/L Anion Gap 12.8 (5-15) MEQ/L BUN 10 (7-17) mg/dL Creatinine 0.68 (0.52-1.04) mg/dL Estimated GFR 109.4 ML/MIN Glucose 95 (74-106) mg/dL Lactic Acid 0.7 (0.4-2.0) Calcium 8.3 L (8.4-10.2) mg/dL Total Bilirubin 0.30 (0.2-1.3) mg/dL AST 18 (14-36) U/L ALT 16 (0-35) U/L Alkaline Phosphatase 58 (38-126) U/L Serum Total Protein 5.9 L (6.3-8.2) g/dL Albumin 3.3 L (3.5-5.0) g/dL Lipase (23-300) U/L Urine Color (Yellow) Urine Appearance (Clear) Urine pH (4.6-8.0) Ur Specific [place] (1.005-1.030) Urine Protein (Negative) Urine Glucose (UA) (Negative) mg/dL Urine Ketones (Negative) Urine Blood (Negative) Urine Nitrite (Negative) Urine Bilirubin (Negative) Urine Urobilinogen (0.2) mg/dL Ur Leukocyte Esterase (Negative) U Hyaline Cast (Auto) (0-2) /LPF Urine Microscopic RBC (0-5) /HPF Urine Microscopic WBC (0-5) /HPF Ur Epithelial Cells (None Seen) /HPF Urine Bacteria (None Seen) /HPF Urine Culture Reflexed (NO) Influenza Type A Ag (NEGATIVE) Influenza Type B Ag (NEGATIVE) RSV (PCR) (NEGATIVE) SARS-CoV-2 (PCR) (NEGATIVE) Micro Results-Entire Visit: Microbiology 11/23/24 Unknown Stool Culture Result 1 - Final Stool Not Reportable Stool Culture Result 2 - Final Not Reportable Stool Culture Result 3 - Final Not Reportable Stool Culture Result 4 - Final Not Reportable Stool Culture Organism Suscept - Final Not Reportable Campylobacter Result 1 - Final Not Reportable Campylobacter Result 2 - Final Not Reportable Campylobactor Result 3 - Final Not Reportable Campylobacter Result 4 - Final Not Reportable Campylobactor Susceptibility - Final Not Reportable - Radiology Exams Ordered Rad Exams-Entire Visit: Radiology Procedures Category Date Time Status ABDOMEN AND PELVIS W/0 CONTRAS [CT] Stat Exams 11/22/24 16:[address] ANGIOGRAPHY NECK [CT] Stat Exams 11/22/24 16:44 Completed CTA HEAD W AND/OR WO CONTRAST [CT] Stat Exams 11/22/24 17:53 Completed HEAD WITHOUT CONTRAST [CT] Stat Exams 11/22/24 17:01 Completed MRI BRAIN W & W/O CONTRAST [MRI] Routine Exams 11/23/24 08:00 Ordered - Procedures and Test Procedures and Tests throughout Hospitalization: Therapy Orders & Screens 11/22/24 21:53 PT Eval & Treat ( Order) ONCE Reason for Eval:: weakness Diagnosis: neuro deficits 11/23/24 07:57 OT Eval and Treat ( Order) ROUTINE Comment: Physician Instructions: Reason For Exam: RLE weakness Evaluate: Yes Treat: Yes Reason for Evaluation: RLE weaknes and home needs Diagnosis: neuro deficits Discharge Exam General Appearance: no apparent distress, alert, obese Neurologic Exam: alert, oriented x 3, cooperative, normal mood/affect, nml cerebellar function, sensation nml, No motor deficits Eye Exam: PERRL, EOMI, eyes nml inspection Ears, Nose, Throat Exam: normal ENT inspection, pharynx normal, moist mucous membranes Neck Exam: normal inspection, non-tender, supple, full range of motion Respiratory Exam: normal breath sounds, lungs clear, No respiratory distress Cardiovascular Exam: regular rate/rhythm, normal heart sounds Gastrointestinal/Abdomen Exam: soft, No tenderness, No mass Pelvic Exam: deferred Rectal Exam: deferred Back Exam: normal inspection, normal range of motion, No CVA tenderness, No vertebral tenderness Extremity Exam: normal inspection, normal range of motion Skin Exam: normal color, warm, dry Final Diagnosis/Problem List - Final Discharge Diagnosis/Problem (1) Weakness Current Visit: Yes Status: Acute Assessment & Plan: - PT/OT eval - CT head, and CTA negative - MRI- negative - OP f/u with neurology- likely will need OP EMG - tele neuro - CBC, CMP reviewed - WBC 10.4 - Bedrest with BRP Code(s): R53.1 - WEAKNESS (2) Hypokalemia Current Visit: Yes Status: Acute Assessment & Plan: - K+ 3.4- replaced Code(s): E87.6 - HYPOKALEMIA (3) Abdominal pain Current Visit: No Status: Acute Assessment & Plan: - CT Abd/pelvis: IMPRESSION: 1. Subcapsular hepatic hypodense focal lesion is seen at segment VII measuring about 1.2 cm. possibly cyst, triphasic study is advised for further assessment. 2. Tiny left renal middle calyceal stone with no related hydrocalycosis. 3. Unremarkable rest of the study. - CT abd/pelvis w/wo- triple phase ordered for further evaluation- cancelled as not a new finding per Dr. Harrell- radiologist - F/U OP with hepatology- appointment made. Code(s): R10.9 - UNSPECIFIED ABDOMINAL PAIN (4) Hypertension Current Visit: Yes Status: Chronic Assessment & Plan: - Bp stable - Continue home meds Code(s): I10 - ESSENTIAL (PRIMARY) HYPERTENSION (5) Lactic acidosis Current Visit: Yes Status: Resolved Assessment & Plan: - resolved - unknown cause - BC x2 pending Code(s): E87.20 - ACIDOSIS, UNSPECIFIED - Discharge Discharge Date: 11/23/24 Disposition: Home, Self-Care Condition: Stable Prescriptions: Continue Cyanocobalamin 1000 Mcg/ml [Cyanocobalamin B-12 1000 MCG/ML] 1,000 mcg IM UD Methocarbamol [Robaxin] 500 mg PO QID PRN PRN Reason: Pain Gabapentin 400 mg PO TID PRN PRN Reason: Pain Methylphenidate HCl [Ritalin] 20 mg PO UD Ergocalciferol (Vitamin D2) [Vitamin D] 50,000 unit PO WEEKLY Metoprolol Succinate 50 mg [Toprol Xl 50 MG] 50 mg PO BID Topiramate 25 mg [Topamax 25 MG] 50 mg PO DAILY lisinopriL [Zestril] 2.5 mg PO DAILY Follow up with: DANIELLA BETANCOURT NP [NON-STAFF PHY W/O PRIVILEGES] - 12/30/24 9:00 am EDGAR KRISHNAN MD [NON-STAFF PHY W/O PRIVILEGES] - 02/16/25 10:30 am EMILY KISER NP [Primary Care Provider] - 11/26/24 11:15 am
[2024-11-23] MEDS ORDERED: NON-FORMULARY ITEM (Lisinopril [Zestril] 2.5 MG Tablet) PO SCH (10:00)
[2024-11-23] MEDS ORDERED: NON-FORMULARY ITEM (Topiramate 25 Mg*** [Topamax 25 Mg***] 25 MG Capsule) PO SCH (10:00)
[2024-11-23] MEDS: Zestril 5 MG PO SCH (11:33)
[2024-11-23] MEDS: Protonix 40MG Tablet PO SCH (11:34)
[2024-11-23] MEDS: ENOXAPARIN SODIUM SQ SCH (11:34)
[2024-11-23] MEDS: TOPIRAMATE PO SCH (11:34)
--- NOTE | 2024-11-23 11:51 | XRAY ---
Indication: Weakness. Cerebrovascular accident versus multiple sclerosis. Normal CT and CTA head exams. Sagittal, coronal, and axial MRI brain performed using pre and post T1, T2, FLAIR, diffusion, and ADC sequences. 20 cc Dotarem contrast used. Comparison: None Ventriculosulcal pattern appears symmetric. No acute intracranial hemorrhage, abnormal extra-axial fluid collection, or mass effect. Diffusion images negative for restricted signal. Following gadolinium, there is no abnormal enhancing intra or extra-axial mass. Fourth ventricle is midline without hydrocephalus. 7/8 cranial nerve complex bilaterally symmetric. Normal flow-void signal within the major intracerebral circulation. Normal appearing craniocervical junction and sella turcica. Paranasal sinuses are clear. Impression: Negative MRI brain with contrast exam.
--- NOTE | 2024-11-23 12:22 | PCM.NOTE ---
Physician Signature This document was electronically signed by: Josué Odom DO 11/23/2024 12:21 PM Consult Cover Page FROM: Mitchel Renee, Call Back Number: [phone] SUBJECT: Consult Recommendations Date and Time of Report: 11/23/2024 12:21 PM ET Items Contained in this Document: Neurology Consult Note Consult Information Member Facility: [facility] Facility Consult ID: [id number] Facility Time Zone: ET Date and Time of Request: 11-22-2024 07:39 PM ET Patient Name: ASAD KEANE Date of : 1980 Gender: Female Patient identity was confirmed at the beginning of the consult with the patient/family/staff using two personal identifiers: Patient name and Reason for Consult Reason for Consult: Follow Up General Chief Complaint: follow up neuro Patient Location and Admission Status: Inpatient Family Members and Medical Staff Present During Exam: History of Present Illness: interval: no change to her right side weakness or tingling. brain MRI shows no intracranial pathology, no contrast enhancement. overall normal brain. REVIEW OF SYSTEMS 14 point reviewed and is negative except as above. Neurologist and patient are in same time zone, documented as local (eastern) time. Camera date/time: 1201 Number of Documented HPI Elements: 4+ Medical History Other Medical History: HTN, DM, gastroparesis, migraines Other Family History: paternal grandfather and great uncle both with multiple sclerosis Allergies Other Allergies: morphine, bactrim, clindamycin, midazolam Medications Anti-Coagulants: None Anti-Platelets: None Other Medications: lisinopril, metoprolol, reglan, ozempic, levaquin, topamax Social History Alcohol Use: None Drug Use: None Tobacco Use: Current Vital Signs Temperature F: 97.6 Temperature C: 36.4 Blood Pressure (mmHg): 150/72 Heart Rate (bpm): 93 Respiration Rate (/min): 16 O2 Sat (%): 97 Date and Time: 11/23/2024 10:32:07 AM ET Review Of Systems Neurological: See HPI Exam Exam: Gen: Well developed, well nourished. No acute distress. MS: Awake and oriented. Alert. Fund of knowledge, memory, and language at baseline. CV: well-perfused. No edema. 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 +blink. Unable to visualize fundi. Sensation intact. Face is symmetric. Hearing intact. Shoulder shrug intact. Tongue midline. Motor: Antigravity on left and RUE, 3/5 RLE hip flexion and knee extension on focal testing however she can stand and ambulate with right leg suggesting she actually is at least 4/5. Normal bulk. Tone cannot be assessed accurately over the camera. Sens: Intact to light touch in all 4 extremities. MSR: Unable to assess through telemedicine, no clonus noted. Mvmt: No tremors noted. SHINE/FTN intact. Gait: Deferred. Labs and Imaging Labs available?: Yes WBC (mcL): 10.4 MRI Brain Findings: Normal, No acute changes Assessment and Recommendations Assessment: normal MRI brain scan. no clear etiology of her symptoms at this time but suspicious for functional neurological disorder. no evidence of multiple sclerosis. inpatient workup is complete. given 2 month hx, she can follow up with outpatient neurologist. Recommendations: - no further inpatient workup for neurological sx - follow up PT/OT recs - follow up outpatient neurologist I personally reviewed imaging, chart information including prior notes and labs as available, and discussed with the primary provider. This telemedicine evaluation was performed using a real-time, 2-way, audio and video connection and written or verbal consent was obtained from the patient/surrogate. 2 identifiers name and date of used. 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 Written report was provided to the requesting provider. Evaluation Duration (mins): 10 Poole Timer Summary Date and Time of Request: 11-22-2024 07:39 PM ET Physician Signature This document was electronically signed by: Josué Odom DO 11/23/2024 12:21 PM
[2024-11-25 04:39] VITALS: BP 123/67; PULSE 82; RESP 18; TEMP 97.7; O2SAT 93
== END 2024-11-23 13:25 | disposition home or self-care (01) ==
LOC: ED 16:04 → MED SURG 21:37
PROVIDERS: ADMIT Internal Medicine Nephrology; ATTEND Internal Medicine Nephrology
DX: R53.1 Weakness (principal); E87.6 Hypokalemia; I10 Essential (primary) hypertension; E87.20 Acidosis, unspecified; F17.200 Nicotine dependence, unspecified, uncomplicated; E78.5 Hyperlipidemia, unspecified; E11.9 Type 2 diabetes mellitus without complications; F41.9 Anxiety disorder, unspecified; R10.11 Right upper quadrant pain; Z79.899 Other long term (current) drug therapy
CPT/HCPCS: 0241U; 36415; 70450; 70496; 70498; 74176; 80053; 81001; 83605; 83690; 85025; 87040; 96374; 96375; Q3014; 70553; 99285; G0378; J0696; J1171; J1790; A9270-GY